=== PATIENT | female | born 1980 | race Caucasian/White ===

== ENCOUNTER → 2018-07-21 15:24 | Outpatient (CLI) | payer MEDICAID, SELFPAY ==
[2018-07-21 15:47] LABS: Basophils % 0.4 % (0.1-2.0); Eosinophils # 0.2 K/mm3 (0.0-0.4); Eosinophils % 3.2 % (0.1-12.0); Hematocrit 44.2 % (37.0-47.0); Hemoglobin 14.4 g/dL (12.2-16.2); Lymphocytes # 2.4 K/mm3 (0.7-4.5); Lymphocytes % 31.8 K/mm3 (10-50); Mean Corpuscular HGB Conc 32.6 g/dL (31.8-35.4); Mean Corpuscular Hemoglobin 29.8 pg (27.0-31.2); Mean Corpuscular Volume 91.6 fl (81-99); Mean Platelet Volume 7.1 fl (7.4-10.4); Monocytes # 0.4 K/mm3 (0.1-1.0); Monocytes % 5.3 % (1.7-9.3); Neutrophils # 4.5 K/mm3 (1.8-7.8); Neutrophils % 59.3 % (37.0-80.0); Platelet Count 258 K/mm3 (142-424); Red Blood Count 4.83 M/mm3 (4.20-5.40); Red Cell Distribution Width 13.7 % (11.5-17.5); White Blood Count 7.6 K/mm3 (4.8-10.8)
== END ==
PROVIDERS: PCP Nurse Practitioner Family; Visit Provider Obstetrics & Gynecology
DX: N93.8 Other specified abnormal uterine and vaginal bleeding (principal); Z01.419 Encounter for gynecological examination (general) (routine) without abnormal findings
CPT/HCPCS: 36415; 84443; 85025; 86316

== ENCOUNTER 2021-01-12 16:16 | Emergency (ER) | payer MEDICAID, SELFPAY ==
[2021-01-12 16:33] VITALS: BP 130/81; PULSE 70; RESP 18; TEMP 36.4; O2SAT 96; BMI 42.1
[2021-01-12 17:10] VITALS: BP 130/81; PULSE 70; RESP 18; TEMP 36.4; O2SAT 96; BMI 42.0
--- NOTE | 2021-01-12 18:27 | HMH.EDUTC ---
[facility] [place] Clinical Impression: Muscle spasm Disposition: Home, Self-Care Condition on Discharge: Good Instructions: Acetaminophen (Alternative Therapy), Methocarbamol, DI for Muscle Spasm Additional Instructions: take Tylenol every 4 hours as needed if you need something pain *moist heat every 20 minutes 3-4 times a day to affected area *Muscle relaxer every 12 hours as needed for muscle spasms but remember, it WILL cause drowsiness You cannot take it and drive, operate machinery or care for small children. *Keep this area active, no movement leads to more stiffness, However take it easy and avoid heavy lifting pushing or pulling *Follow up with you family doctor if no improvement for further treatment Warm bath soaks with epson salt may help with muscle spasm like pain Follow up with your Family Doctor if no improvement or any worsening of sympotms Return if needed Straight to ER if any life threatening symptoms Prescriptions: methocarbamoL [Methocarbamol 500mg Tablet] 500 mg PO BID PRN #20 tab PRN Reason: Muscle Spasm Transmission Status: Received by [id number] Referrals: Marichuy Taylor APRN [Primary Care Provider] - As needed Forms: Work/School Release Time of Disposition: 18:37 Medical Decision Making - Davidson Inquiry Pt receiving controlled substance: No Davidson was queried for this patient: No Vital Signs: 01/12/21 16:33 01/12/21 17:10 01/12/21 18:39 Temperature 97.6 F 97.6 F 97.6 F Temperature Source Oral Oral Pulse Rate 70 Pulse Rate [Left Radial] 70 70 Respiratory Rate 18 18 18 Blood Pressure 130/81 Blood Pressure [Left Arm] 130/81 130/81 Blood Pressure Mean [Left Arm] 97 97 Blood Pressure Source [Left Arm] Automatic Cuff Automatic Cuff Blood Pressure Position [Left Arm] Sitting Sitting 02 Sat by Pulse Oximetry 96 96 Oxygen Delivery Method Room Air Room Air Orders (Tests/Meds): ED MEDICATIONS Discontinued Medications Generic Name Dose Route Start Last Admin Trade Name Freq PRN Reason Stop Dose Admin Methocarbamol 500 mg 01/12/21 18:38 01/12/21 18:41 Methocarbamol 500mg Tablet PO 01/12/21 18:39 500 mg ONCE ONE Administration Medical Decision Narrative: Patient declined c-spine xray [facility] [place] - General Stated complaint: neck pain numb fingers Time Seen by Provider: 01/12/21 18:27 Mode of Arrival: Ambulatory Source of Information: Patient Limitations: No Limitations Description of Symptoms (Recalled from Triage Doc. by RN): Pt c/o L sided neck pain radiating in L posterior shoulder area x1 week. Pt denies injury. HEENT Symptoms (Recalled from RN notes): No Resp Symptoms (Recalled from RN notes): No Skin Symptoms (Recalled from RN notes): No MS Symptoms (Recalled from RN notes): No Functional Status (Recalled from RN notes): WNL - History of Present Illness Provider Complaint: Patient states that she is having spasm like pain on the left side of her neck and it radiates down into her left shoulder area State that earlier she felt numb tingling like pain her fingers States that she is not sure if she may have slept wrong on it or not States that it has been bothering her for about a week and not got any better and feels tight when she tries to turn her head Denies known injury - Related Data Home Medications Medication Instructions Recorded Confirmed buprenorphine 8 mg-naloxone 2 mg 1 tab SUBLINGUAL DAILY tab 07/21/18 03/16/19 sublingual tablet loratadine-pseudoephedrine ER 10 1 tab PO DAILY 07/21/18 03/16/19 mg-240 mg tablet,extended [id number] Previous Rx's Medication Instructions Recorded Amoxicillin/Potassium Clav 1 tab PO Q12H #14 tab 03/16/19 [Augmentin 875-125 Tablet] Benzonatate [Tessalon Perle 100mg 100 mg PO BID PRN #10 cap 03/16/19 Cap] Fluticasone Propionate [Flonase 2 spr NS DAILY #1 bottle 03/16/19 50mcg nasal spray 16gm] Fluconazole [Diflucan 150mg tab] 150 mg PO DIRECTED #2
[2021-01-12 18:39] VITALS: BP 130/81; PULSE 70; RESP 18; TEMP 36.4; O2SAT 96
== END 2021-01-12 18:42 | disposition home or self-care (01) ==
LOC: ER 16:33 → UTC 16:33
PROVIDERS: Emergency Provider Nurse Practitioner; PCP Nurse Practitioner Family
DX: M62.838 Other muscle spasm (principal); M54.2 Cervicalgia; J44.9 Chronic obstructive pulmonary disease, unspecified; F17.210 Nicotine dependence, cigarettes, uncomplicated
CPT/HCPCS: 99202; G0463

== ENCOUNTER 2021-06-15 18:47 | Emergency (ER) | payer MEDICAID, SELFPAY ==
[2021-06-15 19:30] VITALS: BP 137/90; PULSE 98; RESP 18; TEMP 36.8; O2SAT 100; BMI 36.2
--- NOTE | 2021-06-15 19:51 | HMH.EDUTC ---
[facility] – [place] Clinical Impression: Upper respiratory infection, viral Disposition: Home, Self-Care Condition on Discharge: Good Instructions: DI for Viral Upper Respiratory Infection -- Adult Additional Instructions: covid swab was sent to lab, call later today for results. self isolate until test results are known to be negative No sign of a bacterial infection. Likely viral. Viruses can take 7-14 days to run their course. Nasal saline and bulb syringe or nose Jasmyne to remove nasal drainage to help with nasal congestion. Hard to eat, drink, sleep with nasal congestion so important to keep this cleaned out. Monitor temp. Tylenol or Motrin as needed for pain or fever Encourage fluids, water, Gatorade, Powerade, Pedialyte if /toddler/child Warm salt water gargles Warm fluids Sore throat lozenges Sleep elevated Humidifier/vaporizer Follow-up immediately for new or worsening symptoms or no noticeable improvement over the next 48-72 hours. Prescriptions: ondansetron HCL [Zofran 4mg Tab*] 4 mg PO TIDP PRN 3 Days #9 tab PRN Reason: Nausea Transmission Status: [facility] Referrals: Marichuy Taylor APRN [Primary Care Provider] - Time of Disposition: 20:01 Medical Decision Making - Davidson Inquiry Pt receiving controlled substance: No Vital Signs: 06/15/21 19:30 Temperature 98.3 F Temperature Source Oral Pulse Rate [Right Brachial] 98 H Respiratory Rate 18 Blood Pressure [Right Arm] 137/90 Blood Pressure Mean [Right Arm] 105 Blood Pressure Source [Right Arm] Automatic Cuff Blood Pressure Position [Right Arm] Sitting 02 Sat by Pulse Oximetry 100 Oxygen Delivery Method Room Air Orders (Tests/Meds): ORDERS Category Date Time Status Covid-19 Nasal PCR ([facility]) Routine Lab 06/15/21 19:38 Received [facility] [place] HPI - General Chief complaint: [facility] Stated complaint: vomiting,CALLES Time Seen by Provider: 06/15/21 19:51 Mode of Arrival: Ambulatory Source of Information: Patient Limitations: No Limitations Description of Symptoms (Recalled from Triage Doc. by RN): PATIENT C/O HEADACHE AND VOMITING X 3 DAYS HEENT Symptoms (Recalled from RN notes): No Resp Symptoms (Recalled from RN notes): No Skin Symptoms (Recalled from RN notes): No MS Symptoms (Recalled from RN notes): No Functional Status (Recalled from RN notes): WNL - History of Present Illness Provider Complaint: 41 yr old female presents for headache, body aches,nausea and vomiting for 3 days - Related Data Home Medications Medication Instructions Recorded Confirmed buprenorphine 8 mg-naloxone 2 mg 1 tab SUBLINGUAL DAILY tab 07/21/18 03/16/19 sublingual tablet loratadine-pseudoephedrine ER 10 1 tab PO DAILY 07/21/18 03/16/19 mg-240 mg tablet,extended [id number] Previous Rx's Medication Instructions Recorded Amoxicillin/Potassium Clav 1 tab PO Q12H #14 tab 03/16/19 [Augmentin 875-125 Tablet] Benzonatate [Tessalon Perle 100mg 100 mg PO BID PRN #10 cap 03/16/19 Cap] Fluticasone Propionate [Flonase 2 spr NS DAILY #1 bottle 03/16/19 50mcg nasal spray 16gm] Fluconazole [Diflucan 150mg tab] 150 mg PO DIRECTED #2 tab 03/21/19 methocarbamoL [Methocarbamol 500mg 500 mg PO BID PRN #20 tab 01/12/21 Tablet] ondansetron HCL [Zofran 4mg Tab*] 4 mg PO TIDP PRN 3 Days #9 tab 06/15/21 Allergies Allergy/AdvReac Type Severity Reaction Status Date / Time ibuprofen Allergy Verified 03/21/19 10:19 prednisone Allergy Verified 03/21/19 10:19 - Worker's Comp Is this a Worker's Comp case?: No H History - Hepatitis A Screen Drug use history?: No High risk sexual behaviors?: No History of sexually transmitted infection?: No Currently employed?: No Childcare worker?: No Do you have indoor plumbing?: Yes Do you have electricity?: Yes Attestation statement:: This patient has been screened for Hepatitis A risk factors. I have reviewed the patient's past medical history
[2021-06-15 20:15] VITALS: BP 137/90; PULSE 98; RESP 18; TEMP 36.8; O2SAT 100
[2021-06-15 22:15] LABS: UTC Strep Screen (Rapid) Negative (Negative)
== END 2021-06-15 20:20 | disposition home or self-care (01) ==
PROVIDERS: Emergency Provider Nurse Practitioner Family; PCP Nurse Practitioner Family
DX: J06.9 Acute upper respiratory infection, unspecified (principal); Z20.822 Contact with and (suspected) exposure to COVID-19; J44.9 Chronic obstructive pulmonary disease, unspecified
CPT/HCPCS: 87880; 99203; G0463; U0003

== ENCOUNTER → 2021-10-23 12:16 | Outpatient (CLI) | payer MEDICAID, SELFPAY ==
--- NOTE | 2021-10-23 12:18 | CA_ITS ---
APPROVED REPORT EXAM: Comprehensive 2D, Doppler, and color-flow Echocardiogram Water Supply Engineer: Laurel Fisher RVT Ht: 5 ft 2 in Wt: 251lbs BSA: 2.11 BP: 125/83 mmHg Indications: CP,SOA,ABN EKG,EDEMA,OBESITY,SMOKER 2D Dimensions LVOT 2.01 cm (M/F) 1.5-2.5 LA Volume 28.70 mL LA Volume Index 13.66 mL/m2 (M/F) 16-34 M-Mode Dimensions RVDd 2.49 cm (0.9-2.6) LA Diam 3.91 cm (1.9-4.0) LVDd 5.83 cm (3.5-5.7) Ao Diam 2.78 cm (2.0-3.7) LVDs 3.82 cm (3.5-5.7) IVSd 0.80 cm (0.6-1.1) PWd 0.68 cm (0.6-1.1) EF (Teich) 62.80% FS 34.50% EDV (Teich) 168.50 mL TAPSE 2.73 (<1.7) ESV (Teich) 62.70 mL LV Diastology E Decel Time 187.00 (160-240 msec) E/A Ratio 0.9 MED E' 7.80 (< 7 cm/sec) E'/MED E' Ratio 15.88 (>14) LAT E' 14.50 (<10 cm/sec) E/LAT E' Ratio 8.54 (>14) Aortic Valve AO Peak GR. 10.90 mmHg Mitral Valve MV E Max Erik. 124.00 (40-130 cm/s) MV A Velocity 136.00 (40-130 cm/s) E/A Ratio 0.91 MV Decel. Time 187.00 (160-240 ms) MV PHT 55.00 ms Pulmonary Valve PV Peak Velocity 103.00 (50-150 cm/s) Tricuspid Valve TR P. Velocity 251.00 cm/s RAP Estimate 10.00 mmHg RVSP 35.20 mmHg Left Ventricle Left atrium is normal size, left ventricle is normal size, there is no concentric left ventricular hypertrophy, visually estimated ejection fraction 55% with no regional wall motion abnormality, diastolic parameters are within normal range. Right Ventricle Right atrium and right ventricle are normal size and contractility. Aortic Valve Aortic valve is grossly normal, there is no aortic stenosis or aortic insufficiency. Mitral Valve Mitral valve grossly normal, there is trace mitral regurgitation. Tricuspid Valve Tricuspid valve grossly normal, there is trace tricuspid regurgitation, tricuspid regurgitation jet velocity is inadequate for calculation of the right ventricular systolic pressure. Pulmonic Valve Pulmonic valve is poorly visualized. Great Vessels Aortic root is normal size. Inferior vena cava normal size with normal inspiratory collapse. Pericardium No significant pericardial effusion noted. Conclusion 1. Normal left ventricular size, preserved left ventricular systolic function, visually estimated ejection fraction 55% with no regional wall motion abnormality, diastolic parameters are within normal range. 2. Trace mitral and tricuspid regurgitation. 3. No significant pericardial effusion noted. 4. Inferior vena cava is normal size with normal inspiratory collapse. Electronically signed by : Cuco Bourgeois MD 10/31/2021 09:53:47
== END ==
PROVIDERS: PCP Nurse Practitioner Family; Visit Provider Urology
DX: R06.00 Dyspnea, unspecified (principal); R42 Dizziness and giddiness; R60.9 Edema, unspecified; R94.31 Abnormal electrocardiogram [ECG] [EKG]
CPT/HCPCS: 93306

== ENCOUNTER 2021-11-11 16:56 | Emergency (ER) | payer MEDICAID, SELFPAY ==
[2021-11-11 17:40] VITALS: BP 145/96; PULSE 92; RESP 18; TEMP 37; O2SAT 93; BMI 42.0
[2021-11-11 18:03] LABS: UTC Influenza A Antigen Negative (Negative); UTC Influenza B Antigen Negative (Negative)
[2021-11-11 18:04] LABS: UTC Strep Screen (Rapid) Negative (Negative)
--- NOTE | 2021-11-11 18:07 | HMH.EDUTC ---
[facility] [place] Clinical Impression: Bronchitis Sinusitis Qualifiers: Sinusitis location: unspecified location Chronicity: unspecified Qualified Code(s): J32.9 - Chronic sinusitis, unspecified Disposition: Home, Self-Care Condition on Discharge: Good Instructions: Sinusitis, DI for Sinusitis, DI for Acute Bronchitis Additional Instructions: ? Start antibiotic today. Be sure to complete entire prescription even if feeling better ? Monitor temp. Tylenol every 4 hours as needed and / or ibuprofen every 6 hours as needed ( As long as your primary care physician has told you that it ok to take both. For fever/aches/pains ER if no less than 101 despite Tylenol or Motrin ? Humidifier/vaporizer or hot steamy shower ? Inhaler every 4-6 hours as needed like we discussed. If unsure how to use it, ask pharmacist to demonstrate how. Should help open airways and improve cough, wheezing, and shortness of breath *Promethazine DM cough syrup will cause drowsiness. Use only at night. No driving, operating machinery or caring for small children after taking it *Tessalon Perles will not cause drowsiness but use at bedtime to help stop cough so that you may get some rest. *Start steroid today. Helps with inflammation therefore, cough and wheezing. Follow directions on the package. Reviewed side effects. Patient reports taking them before. Follow up IMMEDIATELY for new or worsening of symptoms OR no noticeable improvement over the next 48-72 hours. 911 immediately for any life threatening symptoms such as chest pain or difficulty breathing You were tested for today for COVID19 your test result should be back in the next 24-48 hours, you may check your COVID test result on the [facility] My Health Portal if you have trouble logging on you may call support for assistance You was given a handout with instructions for Self Quarantine and Self isolation for while you wait on test results and what to do if they are positive If you are positive the Health Dept will be contacting you also Make sure to take your Vitamins Vit. C Vit D and Zinc if you can take them Prescriptions: Benzonatate [Benzonatate 100mg cap] 100 mg PO Q8HP PRN #15 cap PRN Reason: Cough Transmission Status: [facility] Amoxicillin/Potassium Clav [Augmentin 065125 Tablet] 1 tab PO Q12H 10 Days #20 tab Transmission Status: [facility] Referrals: Johanna Castaneda [Primary Care Provider] - As needed Forms: Work/School Release Medical Decision Making - Davidson Inquiry Pt receiving controlled substance: No Davidson was queried for this patient: No Vital Signs: 11/11/21 17:40 11/11/21 18:43 Temperature 98.6 F 98.6 F Temperature Source Oral Pulse Rate 92 H Pulse Rate [Right Brachial] 92 H Respiratory Rate 18 18 Blood Pressure 145/96 H Blood Pressure [Right Arm] 145/96 H Blood Pressure Mean [Right Arm] 112 Blood Pressure Source [Right Arm] Automatic Cuff Blood Pressure Position [Right Arm] Sitting 02 Sat by Pulse Oximetry 93 L Oxygen Delivery Method Room Air - Lab Data Lab results reviewed: Yes: I reviewed the patient's lab results. Lab Results 11/11/21 17:27: Strep Scn Rapid Clinic Negative 11/11/21 17:28: Influenza Type A Ag Negative, Influenza Type B Ag Negative Orders (Tests/Meds): ED MEDICATIONS Discontinued Medications Generic Name Dose Route Start Last Admin Trade Name Bridgerq PRN Reason Stop Dose Admin Albuterol/Ipratropium 3 ml 11/11/21 18:10 11/11/21 18:22 Ipratropium/Albuterol 3 Ml Neb IH 11/11/21 18:11 3 ml ONCE ONE Administration Amoxicillin/Clavulanate Potassium 1 each 11/11/21 18:45 11/11/21 18:51 Amoxicillin/Pot Clavulan 500mg Tablet PO 11/11/21 18:46 1 each ONCE ONE Administration ORDERS Category Date Time Status Covid-19 Nasal PCR ([facility]) Routine Lab 11/11/21 17:23 Received Strep Screen Confirmation Routine Micro 11/11/21 17:27 [place] [facility] [place] - General Stated
[2021-11-11 18:43] VITALS: BP 145/96; PULSE 92; RESP 18; TEMP 37; O2SAT 93
== END 2021-11-11 18:54 | disposition home or self-care (01) ==
PROVIDERS: Emergency Provider Nurse Practitioner; PCP Nurse Practitioner Family
DX: U07.1 COVID-19 (principal); J32.9 Chronic sinusitis, unspecified; J20.9 Acute bronchitis, unspecified; F17.210 Nicotine dependence, cigarettes, uncomplicated
CPT/HCPCS: 87804; 87880; 99203; C9803; G0463; U0003; U0005

== ENCOUNTER 2022-02-11 14:43 | Emergency (ER) | payer MEDICAID, SELFPAY ==
[2022-02-11 14:53] VITALS: BP 123/90; PULSE 87; RESP 18; TEMP 36.7; O2SAT 98; BMI 37.8
--- NOTE | 2022-02-11 15:24 | HMH.EDUTC ---
[facility] [place] Clinical Impression: Sinusitis Qualifiers: Sinusitis location: unspecified location Chronicity: unspecified Qualified Code(s): J32.9 - Chronic sinusitis, unspecified Otitis externa Qualifiers: Otitis externa type: unspecified type Chronicity: unspecified Laterality: right Qualified Code(s): H60.91 - Unspecified otitis externa, right ear Disposition: Home, Self-Care Condition on Discharge: Good Instructions: Sinusitis, DI for Sinusitis, DI for Otitis Externa Additional Instructions: Take oral medication as prescribed Use ear drops as prescribed FOllow up with your Family Doctor if no improvement or any worsening of symptoms Return if needed Straight to ER if any life threatening symptoms Prescriptions: Amoxicillin/Potassium Clav [Amox-Clav 875-125 mg Tablet] 1 tab PO BID #20 tab Transmission Status: [facility] Ofloxacin [Floxin 0.3% OTIC Solution 5mL] 5 drops EAR-RIGHT BID 7 Days #5 ml Transmission Status: [facility] Referrals: Provider,Referral, MD [Primary Care Provider] - As needed Time of Disposition: 15:33 Medical Decision Making - Davidson Inquiry Pt receiving controlled substance: No Davidson was queried for this patient: No Vital Signs: 02/11/22 14:53 Temperature 98.0 F Temperature Source Oral Pulse Rate [Left Radial] 87 Respiratory Rate 18 Blood Pressure [Left Arm] 123/90 Blood Pressure Mean [Left Arm] 101 Blood Pressure Source [Left Arm] Automatic Cuff Blood Pressure Position [Left Arm] Sitting 02 Sat by Pulse Oximetry 98 Oxygen Delivery Method Room Air [facility] [place] HPI - General Stated complaint: rt ear pain Time Seen by Provider: 02/11/22 15:24 Mode of Arrival: Ambulatory Source of Information: Patient Limitations: No Limitations Description of Symptoms (Recalled from Triage Doc. by RN): C/O rt earache x3 days HEENT Symptoms (Recalled from RN notes): Yes (Rt earache) Resp Symptoms (Recalled from RN notes): No Skin Symptoms (Recalled from RN notes): No MS Symptoms (Recalled from RN notes): No Functional Status (Recalled from RN notes): n/a - History of Present Illness Provider Complaint: Patient states that she has been having pain and swelling in her right ear for several days that has continued to get worse States that today she feels like it is about swollen closed so she came in to get it checked out - Related Data Home Medications Medication Instructions Recorded Confirmed buprenorphine 8 mg-naloxone 2 mg 1 tab SUBLINGUAL DAILY tab 07/21/18 11/11/21 sublingual tablet clonidine HCl 0.1 mg tablet 0.1 mg PO DAILY tab 09/29/21 11/11/21 clonazePAM [Clonazepam] 1 mg PO DAILY 11/11/21 11/11/21 Previous Rx's Medication Instructions Recorded Amoxicillin/Potassium Clav 1 tab PO Q12H 10 Days #20 tab 11/11/21 [Augmentin 875-125 Tablet] Benzonatate [Benzonatate 100mg 100 mg PO Q8HP PRN #15 cap 11/11/21 cap] Amoxicillin/Potassium Clav 1 tab PO BID #20 tab 02/11/22 [Amox-Clav 875-125 mg Tablet] Ofloxacin [Floxin 0.3% OTIC 5 drops EAR-RIGHT BID 7 Days #5 ml 02/11/22 Solution 5mL] Allergies Allergy/AdvReac Type Severity Reaction Status Date / Time ibuprofen Allergy Verified 09/29/21 14:38 prednisone Allergy Verified 09/29/21 14:38 - Worker's Comp Is this a Worker's Comp case?: No [facility] History - Hepatitis A Screen Drug use history?: No High risk sexual behaviors?: No History of sexually transmitted infection?: No Currently employed?: No Childcare worker?: No Do you have indoor plumbing?: Yes Do you have electricity?: Yes Attestation statement:: This patient has been screened for Hepatitis A risk factors. I have reviewed the patient's past medical history: Yes Medical History: Reports:: Chronic Obstructive Pulmonary Disease (COPD) Comment: COPD Other Surgeries: Yes: Hysterectomy-Partial Amputation: No Fractures: No Comment: EYE SURGERIES--1999 TO PRESENT. P* C/S--2002. R C/S---
[2022-02-11 15:40] VITALS: BP 123/90; PULSE 87; RESP 18; TEMP 36.7; O2SAT 98
== END 2022-02-11 15:45 | disposition home or self-care (01) ==
PROVIDERS: Emergency Provider Nurse Practitioner
DX: H60.91 Unspecified otitis externa, right ear (principal); J32.9 Chronic sinusitis, unspecified; J44.9 Chronic obstructive pulmonary disease, unspecified; F17.210 Nicotine dependence, cigarettes, uncomplicated
CPT/HCPCS: 99212; G0463

== ENCOUNTER 2022-10-27 12:34 | Emergency (ER) | payer MEDICAID, SELFPAY ==
[2022-10-27 12:45] VITALS: BP 155/92; PULSE 98; RESP 19; TEMP 36.6; O2SAT 96; BMI 44.6
--- NOTE | 2022-10-27 13:03 | EXP.UTC ---
Discharge Plan Disposition Patient Disposition: Home, Self-Care Condition: Good Prescriptions Prescriptions: New cefdinir 300 mg capsule 300 mg PO BID Qty: 20 0RF guaifenesin [Mucinex] 600 mg tablet extended release 12hr 600 mg PO BID PRN (Reason: cough) Qty: 20 0RF No Action buprenorphine-naloxone 8-2 mg tablet, sublingual 1 tab SUBLINGUAL DAILY clonidine HCl 0.1 mg tablet 0.1 mg PO DAILY albuterol sulfate 90 mcg/actuation HFA aerosol inhaler 2 puff inhalation QID PRN (Reason: bronchospasm) Qty: 8.5 12RF Trelegy Ellipta 200-62.5-25 mcg blister with device 1 inh inhalation DAILY Qty: 60 10RF clonazepam 1 MG tablet 1 mg PO DAILY torsemide 20 mg tablet 20 mg PO DAILY dextroamphetamine-amphetamine [Adderall XR] 30 mg capsule,extended release 24hr 30 mg PO DAILY potassium chloride 10 mEq tablet extended release 10 meq PO DAILY Referrals Follow up/Referrals: Provider,Referral, MD [Primary Care Provider] - See instructions Activity Restrictions/Add. Instructions Additional Instructions/Restrictions: Start antibiotic today. Be sure to complete entire prescription even if feeling better Monitor temp. Tylenol every 4 hours as needed and / or ibuprofen every 6 hours as needed ( As long as your primary care physician has told you that it ok to take both. For fever/aches/pains ER if no less than 101 despite Tylenol or Motrin Humidifier/vaporizer or hot steamy shower Inhaler every 4-6 hours as needed like we discussed. If unsure how to use it, ask pharmacist to demonstrate how. Should help open airways and improve cough, wheezing, and shortness of breath Mucinex for your cough and cough suppressant only at night. Be sure to drink lots of water. Follow up IMMEDIATELY for new or worsening of symptoms OR no noticeable improvement over the next 48-72 hours. 911 immediately for any life threatening symptoms such as chest pain or difficulty breathing Clinical Impressions Clinical Impression: Bronchitis Sinusitis Qualifiers: Sinusitis location: unspecified location Chronicity: unspecified Qualified Code(s): J32.9 - Chronic sinusitis, unspecified Instructions Patient Instructions: Sinusitis, DI for Sinusitis Discharge ED Provider: Day Ballard [facility] [place] HPI General Stated complaint: Chest congestion, cough Mode of Arrival: Ambulatory Source of Information: Patient Time Seen by Provider: 10/27/22 13:04 Description of Symptoms (Recalled from Triage Doc. by RN): feels like she cannot take deep breath, congestion, SOB, Cough HEENT Symptoms (Recalled from RN notes): Yes Resp Symptoms (Recalled from RN notes): No Skin Symptoms (Recalled from RN notes): No MS Symptoms (Recalled from RN notes): No Functional Status (Recalled from RN notes): n/a History of Present Illness Provider Complaint: Patient states that she feels like she cannot get a deep breath at times States that for the last 3 days she has been having cough, chest congestion and chills and body aches, State that she has COPD and not sure if she may be having a flare or have bronchitis or something States that her cough has got more deep and hurts when she coughs States that family was worried that she may have COVID but she was worried with bronchitis or Pneumonia so she came in Related Data Home Medications Medication Instructions Recorded Confirmed buprenorphine 8 mg-naloxone 2 mg 1 tab sublingual DAILY detox 07/21/18 10/27/22 sublingual tablet clonidine HCl 0.1 mg tablet 0.1 mg PO DAILY ADHD 09/29/21 10/27/22 clonazepam 1 mg tablet 1 mg PO DAILY ADHD 11/11/21 10/27/22 dextroamphetamine-amphetamine ER 30 mg PO DAILY ADHD 10/27/22 10/27/22 30 mg 24hr capsule,extend release (Adderall XR) potassium chloride 10 mEq 10 meq PO DAILY replacement 10/27/22 10/27/22 tablet,extended release torsemide 20 mg tablet 20 mg PO DAILY Edema 10/27/22
--- NOTE | 2022-10-27 13:04 | XR_ITS ---
FINAL REPORT CLINICAL HISTORY: SOB AND CHEST CONGESTION FINDINGS: Two views of the chest show lungs to be clear. Pulmonary vascularity is normal. Heart and mediastinum are unremarkable. No pleural effusion is present. IMPRESSION: No active disease. Reviewed, Interpreted and Dictated by Farhat Nuñez MD Transcribed by Miranda Childs Authenticated and [facility]
[2022-10-27 14:21] VITALS: BP 155/92; PULSE 98; RESP 19; TEMP 36.6; O2SAT 96
== END 2022-10-27 14:20 | disposition home or self-care (01) ==
PROVIDERS: Emergency Provider Nurse Practitioner
DX: J40 Bronchitis, not specified as acute or chronic (principal); J32.9 Chronic sinusitis, unspecified
CPT/HCPCS: 71046; 99212; 99213; G0463

== ENCOUNTER → 2023-03-02 13:39 | Outpatient (CLI) | payer MEDICAID, SELFPAY ==
[2023-03-02 14:30] LABS: Basophils # 0.1 K/mm3 (0-0.2); Basophils % 0.5 % (0.1-2.0); Eosinophils # 0.4 K/mm3 (0.0-0.4); Eosinophils % 3.8 % (0.1-12.0); Hematocrit 42.1 % (37.0-47.0); Hemoglobin 13.5 g/dL (12.2-16.2); Lymphocytes # 2.6 K/mm3 (0.7-4.5); Lymphocytes % 25.1 % (10-50); Mean Corpuscular Hemoglobin 29.1 pg (27.0-31.2); Mean Platelet Volume 8.3 fl (7.4-10.4); Monocytes # 0.5 K/mm3 (0.1-1.0); Monocytes % 5.1 % (1.7-9.3); Neutrophils # 6.7 K/mm3 (1.8-7.8); Neutrophils % 65.5 % (37.0-80.0); Platelet Count 293 K/mm3 (142-424); Red Blood Count 4.62 M/mm3 (4.20-5.40); White Blood Count 10.2 K/mm3 (4.8-10.8)
[2023-03-09 14:21] LABS: D001-IgE D pteronyssinus <0.10 kU/L (Class 0); D002-IgE D farinae <0.10 kU/L (Class 0); E001-IgE Cat Dander <0.10 kU/L (Class 0); E005-IgE Dog Dander <0.10 kU/L (Class 0); E072-IgE Mouse Urine <0.10 kU/L (Class 0); G002-IgE Bermuda Grass 0.62 kU/L (Class II); G006-IgE Timothy Grass 0.59 kU/L (Class II); I006-IgE Cockroach, German 0.49 kU/L (Class I); Immunoglobulin E, Total 358 IU/mL (6-495); M001-IgE Penicillium chrysogen <0.10 kU/L (Class 0); M002-IgE Cladosporium herbarum <0.10 kU/L (Class 0); M003-IgE Aspergillus fumigatus <0.10 kU/L (Class 0); M006-IgE Alternaria alternata <0.10 kU/L (Class 0); T001-IgE Maple/Box Elder 0.36 kU/L (Class I); T003-IgE Common Silver Birch 0.18 kU/L (Class 0/I); T006-IgE Cedar, Mountain 0.26 kU/L (Class 0/I); T007-IgE Oak, White 0.59 kU/L (Class II); T008-IgE Elm, American 0.43 kU/L (Class I); T010-IgE Walnut 0.38 kU/L (Class I); T015-IgE Ash, White 0.41 kU/L (Class I); T070-IgE White Mulberry 0.21 kU/L (Class 0/I); W001-IgE Ragweed, Short 0.43 kU/L (Class I); W011-IgE Thistle, Russian 0.48 kU/L (Class I); W014-IgE Pigweed, Common 0.36 kU/L (Class I); W018-IgE Sheep Sorrel 0.44 kU/L (Class I)
== END ==
PROVIDERS: PCP Family Medicine; Referring Provider Nurse Practitioner; Visit Provider Internal Medicine Pulmonary Disease
DX: J45.909 Unspecified asthma, uncomplicated (principal)
CPT/HCPCS: 36415; 82785; 85025; 86003

== ENCOUNTER → 2023-06-30 15:27 | Outpatient (CLI) | payer MEDICAID, SELFPAY ==
[2023-06-30 15:31] LABS: Microscopic, Urine URINE MICROSCOPIC (MICROSCOPIC)
[2023-06-30 17:32] LABS: Appearance,Urine CLEAR (Clear); Bilirubin,Urine Negative (Negative); Blood, Urine Negative (Negative); Color,Urine YELLOW (Yellow); Glucose,Urine (UA) Negative (Negative); Ketones,Urine Negative (Negative); Leukocyte Esterase,Urine Negative (Negative); Nitrate,Urine Negative (Negative); Protein,Urine Negative (Negative); Specific Gravity, Urine 1.015 (1.005-1.030); Urobilinogen,Urine 0.2 EU/dl (0.2)
[2023-06-30 17:41] LABS: Basophils % 0.3 % (0.1-2.0); Eosinophils # 0.3 K/mm3 (0.0-0.4); Eosinophils % 4.2 % (0.1-12.0); Hematocrit 45.9 % (37.0-47.0); Hemoglobin 14.5 g/dL (12.2-16.2); Lymphocytes # 2.1 K/mm3 (0.7-4.5); Lymphocytes % 25.3 % (10-50); Mean Corpuscular HGB Conc 31.7 g/dL (31.8-35.4); Mean Corpuscular Volume 91.7 fl (81-99); Mean Platelet Volume 8.6 fl (7.4-10.4); Monocytes # 0.5 K/mm3 (0.1-1.0); Monocytes % 6.2 % (1.7-9.3); Neutrophils # 5.2 K/mm3 (1.8-7.8); Platelet Count 293 K/mm3 (142-424); Red Blood Count 5.01 M/mm3 (4.20-5.40); White Blood Count 8.1 K/mm3 (4.8-10.8)
[2023-06-30 17:44] LABS: Creatinine,Urine Random 9 mg/dL (Not Estab.)
[2023-06-30 17:48] LABS: Squamous Epithelial Cell,Urine Occasional #/hpf (0-5); WBC,Urine Occasional #/hpf (0-3)
[2023-06-30 17:50] LABS: Hemoglobin A1C 5.9 % (4.0-6.0); Microalbumin < 6.000 mg/L (0-16.7)
[2023-06-30 18:07] LABS: Chloride 102 mmol/L (98-107)
[2023-06-30 18:08] LABS: Potassium 4.3 mmoL/L (3.5-5.1); Sodium 141 mmol/L (136-145)
[2023-06-30 18:10] LABS: Alanine Aminotransferase 24 U/L (12-78); Albumin/Globulin Ratio 1.1 (1.1-1.8); Alkaline Phosphatase 109 U/L (38-126); Anion Gap 13.3 mEq/L (5-15); Aspartate Amino Transferase 34 U/L (14-36); Bilirubin,Total 0.5 mg/dl (0.2-1.3); Blood Urea Nitrogen 12 mg/dl (7-17); Carbon Dioxide 30 mmol/L (22.0-30.0); Cholesterol 171 mg/dl (140-200); Estimated Glomerular Filt Rate 91 ml/min (>60); GFR (African American) 110 ML/MIN (>60); Globulin 3.5 g/dL (1.3-3.2); Total Protein,Serum 7.5 g/dl (6.3-8.2); Triglycerides 100 mg/dl (30-150); VLDL Cholesterol 20 mg/dL (0-40)
[2023-06-30 18:11] LABS: Calcium 9.4 mg/dl (8.4-10.2); Chol/HDL Ratio 4.1 (1-3.5); Glucose 87 mg/dl (74-100); HDL Cholesterol 42 mg/dl (40-60); Magnesium 1.8 mg/dl (1.6-2.3); Phosphorous 3.2 mg/dl (2.5-4.5)
[2023-06-30 18:20] LABS: NT Pro Brain Natriuretic Pep. 101 pg/mL (0-125)
[2023-06-30 18:22] LABS: Direct LDL Cholesterol 96.86 mg/dL (100-129)
[2023-06-30 18:27] LABS: 25-OH Vitamin D, Total 14.4 ng/mL (30-100)
[2023-06-30 18:42] LABS: Thyroid Stimulating Hormone 0.67 uIU/mL (0.465-4.68)
[2023-06-30 22:11] LABS: Vitamin B12 404 pg/mL (239-931)
== END ==
PROVIDERS: PCP Nurse Practitioner Family; Visit Provider Nurse Practitioner Family
DX: R06.00 Dyspnea, unspecified (principal); R53.83 Other fatigue; R60.9 Edema, unspecified; I10 Essential (primary) hypertension; N39.0 Urinary tract infection, site not specified; B96.89 Other specified bacterial agents as the cause of diseases classified elsewhere; E55.9 Vitamin D deficiency, unspecified; E11.9 Type 2 diabetes mellitus without complications; Z79.84 Long term (current) use of oral hypoglycemic drugs
CPT/HCPCS: 36415; 80053; 80061; 81001; 82043; 82306; 82570; 82607; 83036; 83735; 83880; 84100; 84155; 84439; 84443; 85025; 87086; 87088; 87186

== ENCOUNTER → 2023-07-20 13:56 | Outpatient (CLI) | payer MEDICAID, SELFPAY | PROVIDERS: PCP Emergency Medicine; Visit Provider Physician Assistant | DX: G47.30 Sleep apnea, unspecified (principal); R53.83 Other fatigue; Z87.898 Personal history of other specified conditions | CPT/HCPCS: G0399 ==

== ENCOUNTER 2024-04-03 23:46 | Emergency (ER) | payer MEDICAID, SELFPAY ==
[2024-04-03 23:48] VITALS: BP 135/82; PULSE 91; RESP 17; TEMP 36.7; O2SAT 97; BMI 53.0
[2024-04-04] VITALS (8 sets, daily range): BP systolic 113–124; BP diastolic 62–81; PULSE 72–98; RESP 16–18; TEMP 36.7; O2SAT 96–98
--- NOTE | 2024-04-04 00:03 | XR_ITS ---
PROCEDURE INFORMATION: Exam: XR Chest Exam date and time: 04/04/2024 12:22 AM Age: 43 years old Clinical indication: Shortness of breath; Additional info: SOA, pnd, orthopnea, wheezing TECHNIQUE: Imaging protocol: Radiologic exam of the chest. Views: 2 views. COMPARISON: CR XR CHEST 2V 10/27/2022 1:05 PM FINDINGS: Lungs: No evidence of acute pulmonary disease or infiltrates Pleural spaces: No large effusion or pneumothorax. Heart/Mediastinum: Stable cardiac and mediastinal contours. Bones/joints: No evidence of acute osseous abnormalities within the visualized portions of the thoracic spine and ribs. Osseous structures appear appropriate for patient age. IMPRESSION: No dense parenchymal consolidation, pleural effusion, or pneumothorax.
--- NOTE | 2024-04-04 00:03 | ED_ITS ---
Discharge Plan Disposition Patient Disposition: Home, Self-Care Chief Complaint: Shortness of Breath/Dyspnea Prescriptions Prescriptions: No Action metformin 500 mg tablet 500 mg PO BID Qty: 180 3RF albuterol sulfate 90 mcg/actuation HFA aerosol inhaler 2 puff inhalation QID PRN (Reason: bronchospasm) Qty: 8.5 12RF ipratropium-albuterol 0.5 mg-3 mg(2.5 mg base)/3 mL solution for nebulization 3 ml inhalation Q6H PRN (Reason: shortness of breath or wheezing) Qty: 90 3RF montelukast 10 mg tablet 10 mg PO DAILY 90 Days Qty: 90 3RF fluticasone propionate [Flonase Allergy Relief] 50 mcg/actuation spray,suspension 2 spray intranasal DAILY 90 Days Qty: 16 3RF Rx Instructions: administer into each nostril bisoprolol fumarate 5 mg tablet 5 mg PO DAILY Qty: 30 2RF furosemide [Lasix] 40 mg tablet 40 mg PO DAILY Qty: 30 2RF buprenorphine-naloxone 8-2 mg tablet, sublingual 1 tab SUBLINGUAL DAILY Trelegy Ellipta 200-62.5-25 mcg blister with device 1 inh inhalation DAILY Qty: 60 10RF triamcinolone acetonide 0.1 % cream 1 applic topical BID Qty: 15 0RF spironolactone [Aldactone] 25 mg tablet 25 mg PO DAILY Qty: 30 1RF clonazepam 1 mg tablet 1 mg PO DAILY PRN (Reason: ADHD) dextroamphetamine-amphetamine [Adderall XR] 30 mg capsule,extended release 24hr 30 mg PO DAILY potassium chloride 10 mEq tablet extended release 10 meq PO DAILY Referrals Follow up/Referrals: Joel Estrada DO [Primary Care Provider] - See instructions Activity Restrictions/Add. Instructions Additional Instructions/Restrictions: Follow-up with Dr. Guzman's team regarding this visit to the emergency department and dyspnea (shortness of breath) with exertion. Heart attack and heart failure numbers were negative, electrolytes were normal, oxygen and CO2 were normal. Chest x-ray today was clear. Decadron every day for the next 5 days. Take this in the morning to prevent insomnia at night. Call your family doctor to establish care for this visit to the emergency department and schedule follow-up within 48 hours to ensure improvement. If you have any worsening of your condition or any other concerning signs or symptoms, return to the emergency department or your primary care doctor for further evaluation. Clinical Impressions Clinical Impression: Acute exacerbation of chronic obstructive pulmonary disease Discharge ED Provider: Brain Pulliam HPI General Chief Complaint: Shortness of Breath/Dyspnea Stated Complaint: rash, swelling both legs, hard time breathing Time Seen by Provider: 04/03/24 23:58 History of Present Illness HPI narrative: Please note that above description of symptoms, in this electronic medical record under categorization of recalled from ER triage doctor by RN are reflective of an initial nursing assessment, however, is not reflective of my full history and physical exam that was personally taken and clarified. Consequentially, this preceding description of symptoms, which may include the patient's categorized chief complaint in the EMR, do not reflect my personal clinical impression, and the ultimate description of history of present illness and patient stated complaints should be deferred to this section of the note. Unless stated otherwise or congruent with this section of the note, additional signs, symptoms, or incongruence should be interpreted as inaccurate with my clinical impression. Related Data Home Medications Medication Instructions Recorded Confirmed buprenorphine 8 mg-naloxone 2 mg 1 tab sublingual DAILY detox 07/21/18 07/08/23 sublingual tablet dextroamphetamine-amphetamine ER 30 mg PO DAILY ADHD 10/27/22 07/08/23 30 mg 24hr capsule,extend release (Adderall XR) potassium chloride 10 mEq 10 meq PO DAILY replacement 10/27/22 07/08/23 tablet,extended release clonazepam 1 mg tablet 1 mg PO DAILY PRN ADHD 12/03/22 07/08/23 Previous Rx's Medication Instructions Recorded fluticasone fur. 200 mcg-umeclid 1 inh inhalation DAILY #60 ea 09/10/22 62.5 mcg-vilant 25 mcg inhalat.powder (Trelegy Ellipta) metformin 500 mg tablet 500 mg PO BID #180 tabs 11/09/22 bisoprolol fumarate 5 mg tablet 5 mg PO DAILY #30 tabs 12/03/22 furosemide 40 mg tablet (Lasix) 40 mg PO DAILY #30 tabs 12/03/22 albuterol sulfate 90 mcg/actuation 2 puff inhalation QID PRN 01/14/23 aerosol inhaler bronchospasm #8.5 grams fluticasone propionate 50 2 spray intranasal DAILY 90 days 01/14/23 mcg/actuation nasal #16 grams spray,suspension (Flonase Allergy Relief) ipratropium 0.5 mg-albuterol 3 mg 3 ml inhalation Q6H PRN shortness 01/14/23 (2.5 mg base)/3 mL nebulization of breath or wheezing #90 mL soln montelukast 10 mg tablet 10 mg PO DAILY 90 days #90 tabs 01/14/23 spironolactone 25 mg tablet 25 mg PO DAILY #30 tabs 02/22/23 (Aldactone) triamcinolone acetonide 0.1 % 1 applic topical BID #15 grams 06/30/23 topical cream Allergies Allergy/AdvReac Type Severity Reaction Status Date / Time ibuprofen Allergy Verified 07/08/23 15:06 prednisone Allergy Verified 07/08/23 15:06 [facility] Disclaimer: The information contained in this section may have been updated after the patient was seen, as this information can be updated by other users. Medical History (Updated 04/04/24 @ 02:54 by Brain Pulliam MD) History of snoring Right otitis media Non compliance with medical treatment Smoking greater than 30 pack years Allergic rhinitis Asthma Dyspnea on exertion Hyperlipidemia Sinusitis Otitis externa Bronchitis Upper respiratory infection, viral Muscle spasm Vaginal yeast infection Sinusitis Surgical History History of eye surgery History of hysterectomy History of tubal ligation History of section Family History Other COPD (chronic obstructive pulmonary disease) Diabetes Hypertension Social History Smoking Status: Current every day smoker tobacco type: cigarettes packs per day: 1 second hand exposure: No alcohol intake: never substance use type: former substance user current occupational status: other Travel in the last 8 weeks: None housing: house current occupational exposures/hazards: No ROS Obtained: Yes All systems reviewed & no additional complaints except as documented Physical Exam General General appearance: alert, in no apparent distress, anxious and obese Neck Neck exam: Present trachea midline Chest Chest inspection: Present normal inspection and symmetric chest wall rise Respiratory Respiratory exam: Present normal lung sounds bilaterally and wheezes (Diffuse bilateral, nontachypneic); Absent respiratory distress, stridor, accessory muscle use or prolonged expiratory phase Cardiovascular Cardiovascular exam: Present regular rate and normal rhythm Abdominal Exam Abdominal exam: Present soft; Absent distention or tenderness Extremities Exam Extremities exam: Present edema (Bilateral 1+ pitting. Chronic overlying skin changes) Neurological Exam Neurological exam: Present alert, oriented X3 and CN II-XII intact Skin Skin exam: Present warm and dry; Absent cyanosis, diaphoresis or pallor HEART Score HEART Score HEART Score assessment performed?: Yes History (anamnesis): Slightly suspicious ECG: Normal Age: <45 years Risk factors: 3 or more risk factors Troponin: </= normal limit HEART Score: 2 Critical Care Critical Care Time Critical Care Time: No Medical Decision Making Medical Records Medical records reviewed: Yes I reviewed the patient's medical records. Davidson Inquiry Pt receiving controlled substance: No Davidson was queried for this patient: No Vital Signs Vital Signs: 04/03/24 23:48 04/04/24 00:00 04/04/24 00:08 Temperature 98.0 F Temperature Source Oral Pulse Rate 82 95 H Pulse Rate [Left Radial] 91 H Respiratory Rate 17 Blood Pressure 123/81 Blood Pressure [Right Arm] 135/82 Blood Pressure Mean Blood Pressure Mean [Right Arm] 99 Blood Pressure Source [Right Arm] Automatic Cuff Blood Pressure Position [Right Arm] Sitting 02 Sat by Pulse Oximetry 97 98 Oxygen Delivery Method Room Air Room Air 04/04/24 00:31 04/04/24 01:00 04/04/24 01:30 Temperature Temperature Source Pulse Rate 98 H 74 Pulse Rate [Left Radial] Respiratory Rate Blood Pressure 124/75 113/62 Blood Pressure [Right Arm] Blood Pressure Mean 87 79 Blood Pressure Mean [Right Arm] Blood Pressure Source [Right Arm] Blood Pressure Position [Right Arm] 02 Sat by Pulse Oximetry 97 Oxygen Delivery Method Room Air 04/04/24 02:00 04/04/24 02:30 Temperature Temperature Source Pulse Rate 72 Pulse Rate [Left Radial] Respiratory Rate 16 Blood Pressure 122/76 118/73 Blood Pressure [Right Arm] Blood Pressure Mean 91 88 Blood Pressure Mean [Right Arm] Blood Pressure Source [Right Arm] Blood Pressure Position [Right Arm] 02 Sat by Pulse Oximetry 96 Oxygen Delivery Method Room Air Lab Data Labs: Lab Results 04/04/24 00:04: VBG pH 7.42 H, VBG pCO2 45.7, VBG pO2 61.3 H, VBG HCO3 28.7, VBG Total CO2 30.1 H, VBG O2 Saturation 92.4 H, VBG Base Excess 4.2 H, VBG Lactic Acid 1.7 04/04/24 00:09: Sodium 138, Potassium 3.7, Chloride 99, Carbon Dioxide 35 H, Anion Gap 7.7, BUN 17, Creatinine 0.70, Estimated Creat Clear 81, Estimated GFR 91, Est GFR ( Amer) 110, Glucose 104 H, Calcium 9.4, Total Bilirubin 0.6, AST 35, ALT 30, Alkaline Phosphatase 96, Troponin I < 0.01, NT-Pro-B Natriuret Pep 121, Total Protein 7.1, Albumin 3.9, Globulin 3.2, Albumin/Globulin Ratio 1.2 04/04/24 00:27: WBC 8.7, RBC 4.31, Hgb 12.7, Hct 39.7, MCV 92.3, MCH 29.5, MCHC 31.9, RDW 13.4, Plt Count 261, MPV 7.7, Neut % (Auto) 59.5, Lymph % (Auto) 28.6, [place] % (Auto) 6.1, Eos % (Auto) 5.1, Baso % (Auto) 0.7, Neut # (Auto) 5.2, Lymph # (Auto) 2.5, [place] # (Auto) 0.5, Eos # (Auto) 0.5 H, Baso # (Auto) 0.1 04/04/24 00:27 04/04/24 00:09 Response Orders (Tests/Meds): ED MEDICATIONS Discontinued Medications Generic Name Dose Route Start Last Admin Trade Name Bridgerq PRN Reason Stop Dose Admin Albuterol/Ipratropium 9 ml 04/04/24 00:03 04/04/24 00:07 Ipratropium/Albuterol 3 Ml Neb IH 04/04/24 00:04 9 ml ONCE ONE Administration Aspirin 324 mg 04/04/24 00:03 04/04/24 00:11 Aspirin 81mg Chewable Tablet PO 04/04/24 00:04 324 mg ONCE ONE Administration Methylprednisolone Sodium Succinate 125 mg 04/04/24 00:03 04/04/24 00:11 Methylprednisolone Sod Succ 125mg Vial IV 04/04/24 00:04 125 mg ONCE ONE Administration ORDERS Category Date Time Status CXR 2 view (NOT portable) [XR chest 2V] Stat Exams 04/04/24 00:03 Completed Complete Blood Count Auto Diff Stat Lab 04/04/24 00:27 Completed Comprehensive Metabolic Panel Stat Lab 04/04/24 00:09 Completed NT Pro Brain Natriuretic Pep. Stat Lab 04/04/24 00:09 Completed Troponin I Q3H Lab 04/04/24 03:15 Ordered Troponin I Q3H Lab 04/04/24 06:15 Ordered Troponin I Stat Lab 04/04/24 00:09 Completed Venous Blood Gas Stat RT 04/04/24 00:04 Completed MDM Narrative Medical Decision Narrative: 43-year-old female history of hypertension, hyperlipidemia, COPD not on home oxygen, but still smoking, CAD presenting with shortness of breath. This has been getting worse over the past 2 or 3 days. Patient states that worse with exertion. Associated with swelling in her bilateral lower extremities as well as redness that is developed over the past few weeks. States that over the last month or 2 she has been unable to lay flat at night she has been sitting up straight sleeping due to a feeling of smothering. States that she has been generally short of breath, wheezing more, increased dry cough that is nonproductive. No sick symptoms. History was obtained via conversation with patient. On arrival, patient hemodynamically stable, alert, oriented x4, appropriate, GCS 15, moving all extremities spontaneously, pupils equal and reactive to light. Full physical exam performed and significant for diffuse bilateral end expiratory wheezing. No focal breath sounds. Cardiac exam within normal limits other than 1+ lower extremity pitting edema. Patient obese, unkempt. Differential includes COPD exacerbation, pneumonia, bronchitis, CHF exacerbation, CAD, ACS, PA, microvascular coronary artery disease, among others. Patient was given 324 mg aspirin, DuoNeb x 3, Solu-Medrol 125 mg for symptomatic management and correction of underlying abnormalities. Workup independently interpreted and significant for nonactionable CBC with normal white count, normal hemoglobin, normal platelets. VBG with mild metabolic alkalosis, pH 7.42, bicarb high at 30, CO2 normal at 45, oxygen normal. Lactate negative. Nonactionable CMP. BNP and troponin both negative. Chest x-ray independently interpreted and without acute cardiopulmonary disease, no evidence of edema or CHF. See radiology read for full review of final results. Independent interpretation of EKG shows sinus rhythm 84 beats a minute without ST or T wave changes concerning for acute ischemia. NV 163, QRS 116, QTc 438. Patient placed on continuous cardiac monitoring and continuous pulse ox with initial blood pressure 135/82, heart rate 91, saturation 97 on room air. Heart score 2. Low risk Wells, PERC negative. Patient was placed in observation beginning at 12:30 AM in order to allow COPD exacerbation medications to begin working, reassess, and determine need for admission versus home-going. The patient was provided Solu-Medrol, DuoNebs, rest while awaiting results. Independent interpretation of results demonstrated and discussed above. On reevaluation, patient sleeping comfortably without complaint. At this time, I feel patient is appropriate for discharge. Total observation time 2 hours. Because patient at baseline without signs or symptoms of clinical decompensation, deemed appropriate for discharge. Results were relayed to patient who voiced understanding and were agreeable to outpatient management and follow up. I discussed my clinical impression with patient and answered all questions. At this time, the evidence for any other entities in the differential is insufficient to warrant any further testing or ED observation. This was explained as well. Advisory was given that persistent or worsening symptoms require further evaluation. I confirmed the understanding of this discussion. At this time I feel is most consistent with mild COPD exacerbation. Because patient not without increased sputum, change in sputum, or other indications for antibiotics, these will be prescribed. Patient to be discharged with Decadron. Product Ambassador disclaimer Much of this encounter note is an electronic highway landscape architect spoken language to printed text. Electronic highway landscape architect of the spoken language may permit errors. Although I have reviewed the note, some errors may still exist.
[2024-04-04] MEDS: IPRATROPIUM/ALBUTEROL 3 ML NEB 9 ML IH (00:07)
--- NOTE | 2024-04-04 00:09 | PC.NURSE ---
RT at bedside
[2024-04-04] MEDS: METHYLPREDNISOLONE SOD SUCC 125MG VIAL 125 MG IV (00:11)
[2024-04-04] MEDS: ASPIRIN 81MG CHEWABLE TABLET 324 MG PO (00:11)
[2024-04-04 00:18] LABS: Lactate Venous 1.7 mmol/L (0.4-2.0); VBG Base Excess 4.2 mmol/L (-2.4-2.3); VBG HCO3 28.7 mmol/L (23-30); VBG Oxygen Saturation 92.4 % (50-70); VBG PCO2 45.7 mmol/L (35-51); VBG PH 7.42 mmol/L (7.31-7.41); VBG PO2 61.3 mmol/L (28-40); VBG Total CO2 30.1 mmol/L (23-27)
[2024-04-04 00:30] LABS: Basophils # 0.1 K/mm3 (0-0.2); Basophils % 0.7 % (0.1-2.0); Eosinophils # 0.5 K/mm3 (0.0-0.4); Eosinophils % 5.1 % (0.1-12.0); Hematocrit 39.7 % (37.0-47.0); Hemoglobin 12.7 g/dL (12.2-16.2); Lymphocytes # 2.5 K/mm3 (0.7-4.5); Lymphocytes % 28.6 % (10-50); Mean Corpuscular HGB Conc 31.9 g/dL (31.8-35.4); Mean Corpuscular Hemoglobin 29.5 pg (27.0-31.2); Mean Corpuscular Volume 92.3 fl (81-99); Mean Platelet Volume 7.7 fl (7.4-10.4); Monocytes # 0.5 K/mm3 (0.1-1.0); Monocytes % 6.1 % (1.7-9.3); Neutrophils # 5.2 K/mm3 (1.8-7.8); Neutrophils % 59.5 % (37.0-80.0); Platelet Count 261 K/mm3 (142-424); Red Blood Count 4.31 M/mm3 (4.20-5.40); Red Cell Distribution Width 13.4 % (11.5-17.5); White Blood Count 8.7 K/mm3 (4.8-10.8)
[2024-04-04 00:40] LABS: Alanine Aminotransferase 30 U/L (12-78); Albumin Level 3.9 g/dl (3.5-5.0); Albumin/Globulin Ratio 1.2 (1.1-1.8); Alkaline Phosphatase 96 U/L (38-126); Anion Gap 7.7 mEq/L (5-15); Aspartate Amino Transferase 35 U/L (14-36); Bilirubin,Total 0.6 mg/dl (0.2-1.3); Blood Urea Nitrogen 17 mg/dl (7-17); Calcium 9.4 mg/dl (8.4-10.2); Carbon Dioxide 35 mmol/L (22.0-30.0); Chloride 99 mmol/L (98-107); Creatinine Clearance Estimated 81 mL/min (50-200); Estimated Glomerular Filt Rate 91 ml/min (>60); GFR (African American) 110 ML/MIN (>60); Globulin 3.2 g/dL (1.3-3.2); Glucose 104 mg/dl (74-100); Potassium 3.7 mmoL/L (3.5-5.1); Sodium 138 mmol/L (136-145); Total Protein,Serum 7.1 g/dl (6.3-8.2)
[2024-04-04 00:52] LABS: NT Pro Brain Natriuretic Pep. 121 pg/mL (0-125)
[2024-04-04 00:53] LABS: Troponin I < 0.01 ng/ml (0.00-0.034)
--- NOTE | 2024-04-04 01:33 | PC.NURSE ---
rounded on pt at this time. Pt asleep in bed. Family at bedside.
--- NOTE | 2024-04-04 23:54 | ECG_ITS ---
APPROVED REPORT Exam: Resting ECG HR:84 bpm ECG Measurements Heart Rate 84 AXES WA 163 P 70 QRSd 116 QRS -14 QT 398 T 61 QTc 438 Conclusion SINUS RHYTHM Electronically signed by : CAROL PALACIO, 04/04/2024 05:30:29
== END 2024-04-04 03:10 | disposition home or self-care (01) ==
PROVIDERS: Emergency Provider Emergency Medicine; PCP Internal Medicine
DX: J44.1 Chronic obstructive pulmonary disease with (acute) exacerbation (principal); R06.02 Shortness of breath; R06.2 Wheezing; F17.210 Nicotine dependence, cigarettes, uncomplicated; R60.0 Localized edema; E78.5 Hyperlipidemia, unspecified; I10 Essential (primary) hypertension
CPT/HCPCS: 71046; 80053; 82803; 83880; 84484; 85025; 93005; 96374; 99284; J2930; J7620

== ENCOUNTER 2024-07-04 18:43 | Emergency (ER) | payer MEDICAID, SELFPAY ==
[2024-07-04 20:17] VITALS: BP 125/89; PULSE 80; RESP 20; TEMP 36.7; O2SAT 98; BMI 46.6
--- NOTE | 2024-07-04 20:28 | EXP.UTC ---
Discharge Plan Disposition Patient Disposition: Still a Patient Chief Complaint: Skin/Abscess/Foreign Body Prescriptions Prescriptions: No Action albuterol sulfate 90 mcg/actuation HFA aerosol inhaler 2 puff inhalation QID PRN (Reason: bronchospasm) Qty: 8.5 12RF bisoprolol fumarate 5 mg tablet 5 mg PO DAILY Qty: 30 2RF furosemide [Lasix] 40 mg tablet 40 mg PO DAILY Qty: 30 2RF buprenorphine-naloxone 8-2 mg tablet, sublingual 1 tab SUBLINGUAL DAILY Trelegy Ellipta 200-62.5-25 mcg blister with device 1 inh inhalation DAILY Qty: 60 10RF spironolactone [Aldactone] 25 mg tablet 25 mg PO DAILY Qty: 30 1RF clonazepam 1 mg tablet 1 mg PO DAILY PRN (Reason: ADHD) dexamethasone 6 mg tablet 6 mg PO DAILY Qty: 5 0RF bumetanide 2 mg tablet 2 mg PO DAILY dextroamphetamine-amphetamine [Adderall XR] 30 mg capsule,extended release 24hr 30 mg PO DAILY Referrals Follow up/Referrals: Joel Estrada DO [Primary Care Provider] - See instructions Print Language Print Language: [place] Discharge ED Provider: Brain Pulliam [facility] [place] H[place] General Stated complaint: Pain in both swollen legs Mode of Arrival: Ambulatory Source of Information: Patient Time Seen by Provider: 07/04/24 20:28 Description of Symptoms (Recalled from Triage Doc. by RN): BLE reddness, painful and bright red, hot to the touch HEENT Symptoms (Recalled from RN notes): No Resp Symptoms (Recalled from RN notes): No Skin Symptoms (Recalled from RN notes): Yes (red legs) MS Symptoms (Recalled from RN notes): No Functional Status (Recalled from RN notes): WDL History of Present Illness Provider Complaint: Patient states for the last 3 days she has been having swelling and redness to both legs States she always has swelling and is on Lasix but for the last 3 days she has been having redness that has got worse and now moving up her legs States it is painful, and hurts when she touches it States she had a fever over the weekend and had one this morning states that someone told her she may have an infection so she came in to get checked Related Data Home Medications ?Medication ?Instructions ?Recorded ?Confirmed buprenorphine 8 mg-naloxone 2 mg 1 tab sublingual DAILY detox 07/21/18 07/08/23 sublingual tablet dextroamphetamine-amphetamine ER 30 mg PO DAILY ADHD 10/27/22 07/08/23 30 mg 24hr capsule,extend release (Adderall XR) clonazepam 1 mg tablet 1 mg PO DAILY PRN ADHD 12/03/22 07/08/23 bumetanide 2 mg tablet 2 mg PO DAILY 07/04/24 07/04/24 Previous Rx's ?Medication ?Instructions ?Recorded fluticasone fur. 200 mcg-umeclid 1 inh inhalation DAILY #60 ea 09/10/22 62.5 mcg-vilant 25 mcg inhalat.powder (Trelegy Ellipta) bisoprolol fumarate 5 mg tablet 5 mg PO DAILY #30 tabs 12/03/22 furosemide 40 mg tablet (Lasix) 40 mg PO DAILY #30 tabs 12/03/22 albuterol sulfate 90 mcg/actuation 2 puff inhalation QID PRN 01/14/23 aerosol inhaler bronchospasm #8.5 grams spironolactone 25 mg tablet 25 mg PO DAILY #30 tabs 02/22/23 (Aldactone) dexamethasone 6 mg tablet 6 mg PO DAILY #5 tabs 04/04/24 Allergies Allergy/AdvReac Type Severity Reaction Status Date / Time ibuprofen Allergy Verified 07/08/23 15:06 prednisone Allergy Verified 07/08/23 15:06 Worker's Comp Is this a Worker's Comp case?: No [facility] Disclaimer: The information contained in this section may have been updated after the patient was seen, as this information can be updated by other users. Medical History (Updated 04/04/24 @ 02:54 by Brain Pulliam MD) History of snoring Right otitis media Non compliance with medical treatment Smoking greater than 30 pack years Allergic rhinitis Asthma Dyspnea on exertion Hyperlipidemia Sinusitis Otitis externa Bronchitis Upper respiratory infection, viral Muscle spasm Vaginal yeast infection Sinusitis Surgical History History of eye surgery History of hysterectomy History of tubal ligation History of section Family History Other COPD (chronic obstructive pulmonary disease) Diabetes Hypertension Social History Smoking Status: Current every day smoker tobacco type: cigarettes packs per day: 1 second hand exposure: No alcohol intake: never substance use type: former substance user current occupational status: other Travel in the last 8 weeks: None housing: house current occupational exposures/hazards: No ROS Obtained: Yes All systems reviewed & no additional complaints except as documented and Yes Systems reviewed as appropriate & no additional complaints except as documented Constitutional Constitutional: Reports system reviewed and no additional complaints, except as documented, Reports as per HPI and Reports fever(s) ENT Ears, Nose, Mouth, and Throat: Reports system reviewed and no additional complaints, except as documented and Reports as per HPI Cardiovascular Cardiovascular: Reports system reviewed and no additional complaints, except as documented and Reports as per HPI Respiratory Respiratory: Reports system reviewed and no additional complaints, except as documented and Reports as per HPI Gastrointestinal Gastrointestingal: Reports system reviewed and no additional complaints, except as documented and as per HPI Musculoskeletal Musculoskeletal: Reports system reviewed and no additional complaints, except as documented and Reports as per HPI Integumentary/Breasts Skin/Breast: Reports system reviewed and no additional complaints, except as documented, Reports as per HPI and Reports other Comments: Redness and swelling to bilateral lower extremities that has got worse over the last 3 days with fever Physical Exam General General appearance: alert and in no apparent distress Respiratory Respiratory exam: Present normal lung sounds bilaterally; Absent respiratory distress or wheezes Cardiovascular Cardiovascular exam: Present regular rate, normal rhythm and normal heart sounds Extremities Exam Extremities exam: Present edema and other (bilateral redness, warmth and swelling that extends up both legs above the knee, tender and warm to the touch) Neurological Exam Neurological exam: Present alert, oriented X3 and normal gait Medical Decision Making Davidson Inquiry Pt receiving controlled substance: No Davidson was queried for this patient: No Vital Signs: 07/04/24 20:17 Temperature 98.1 F Temperature Source Oral Pulse Rate [Left Brachial] 80 Respiratory Rate 20 Blood Pressure [Left Arm] 125/89 Blood Pressure Mean [Left Arm] 101 02 Sat by Pulse Oximetry 98 Medical Decision Narrative: Patient having swelling, redness warmth and tenderness to bilateral lower extremities that is extending up past the knee Discussed with patient and due to extent of swelling and redness will transfer to the ED for more extensive work up and evaluation and she agreed Patient moved to room 6
[2024-07-04 20:29] VITALS: BP 136/90; PULSE 77; RESP 22; TEMP 36.7; O2SAT 100; BMI 46.5
--- NOTE | 2024-07-04 20:32 | PC.NURSE ---
PATIENT SENT TO ER PER Julieta TSAI APRN FOR FURTHER EVALUATION. REPORT GIVEN TO DR. PALACIO BY Julieta TSAI APRN. PATIENT AMBULATED TO ER WITH [facility] STAFF ASSIST AT THIS TIME
[2024-07-04 21:00] VITALS: BP 132/83; PULSE 66; RESP 16; O2SAT 97
[2024-07-04 21:01] LABS: Basophils # 0.1 K/mm3 (0-0.2); Basophils % 1.6 % (0.1-2.0); Eosinophils # 0.2 K/mm3 (0.0-0.4); Eosinophils % 3.3 % (0.1-12.0); Hematocrit 46.7 % (37.0-47.0); Hemoglobin 13.9 g/dL (12.2-16.2); Lymphocytes # 1.7 K/mm3 (0.7-4.5); Lymphocytes % 30.8 % (10-50); Mean Corpuscular HGB Conc 29.8 g/dL (31.8-35.4); Mean Corpuscular Hemoglobin 28.6 pg (27.0-31.2); Mean Corpuscular Volume 95.7 fl (81-99); Mean Platelet Volume 8.9 fl (7.4-10.4); Monocytes # 0.3 K/mm3 (0.1-1.0); Monocytes % 5.7 % (1.7-9.3); Neutrophils # 3.2 K/mm3 (1.8-7.8); Neutrophils % 58.6 % (37.0-80.0); Platelet Count 281 K/mm3 (142-424); Red Blood Count 4.88 M/mm3 (4.20-5.40); Red Cell Distribution Width 13.3 % (11.5-17.5); White Blood Count 5.5 K/mm3 (4.8-10.8)
[2024-07-04 21:03] LABS: Albumin Level 4.1 g/dl (3.5-5.0); Chloride 106 mmol/L (98-107); Potassium 3.7 mmoL/L (3.5-5.1); Sodium 141 mmol/L (136-145)
[2024-07-04 21:06] LABS: Alanine Aminotransferase 44 U/L (12-78); Albumin/Globulin Ratio 1.1 (1.1-1.8); Alkaline Phosphatase 89 U/L (38-126); Anion Gap 6.7 mEq/L (5-15); Aspartate Amino Transferase 38 U/L (14-36); Bilirubin,Total 0.5 mg/dl (0.2-1.3); Blood Urea Nitrogen 11 mg/dl (7-17); Carbon Dioxide 32 mmol/L (22.0-30.0); Creatinine Clearance Estimated 94 mL/min (50-200); Estimated Glomerular Filt Rate 108 ml/min (>60); GFR (African American) 131 ML/MIN (>60); Globulin 3.8 g/dL (1.3-3.2); Glucose 67 mg/dl (74-100); Total Protein,Serum 7.9 g/dl (6.3-8.2)
[2024-07-04 21:30] VITALS: BP 147/85; PULSE 67; RESP 14; O2SAT 97
[2024-07-04] MEDS: DALBAVANCIN HCL 1,500 MG in DEXTROSE 5 % IN WATER 250 ML 500 MG IV (21:33)
--- NOTE | 2024-07-04 21:58 | ED_ITS ---
Discharge Plan Disposition Patient Disposition: Home, Self-Care Prescriptions Prescriptions: No Action albuterol sulfate 90 mcg/actuation HFA aerosol inhaler 2 puff inhalation QID PRN (Reason: bronchospasm) Qty: 8.5 12RF bisoprolol fumarate 5 mg tablet 5 mg PO DAILY Qty: 30 2RF furosemide [Lasix] 40 mg tablet 40 mg PO DAILY Qty: 30 2RF buprenorphine-naloxone 8-2 mg tablet, sublingual 1 tab SUBLINGUAL DAILY Trelegy Ellipta 200-62.5-25 mcg blister with device 1 inh inhalation DAILY Qty: 60 10RF spironolactone [Aldactone] 25 mg tablet 25 mg PO DAILY Qty: 30 1RF clonazepam 1 mg tablet 1 mg PO DAILY PRN (Reason: ADHD) dexamethasone 6 mg tablet 6 mg PO DAILY Qty: 5 0RF bumetanide 2 mg tablet 2 mg PO DAILY dextroamphetamine-amphetamine [Adderall XR] 30 mg capsule,extended release 24hr 30 mg PO DAILY Referrals Follow up/Referrals: Joel Estrada DO [Primary Care Provider] - See instructions Activity Restrictions/Add. Instructions Additional Instructions/Restrictions: Call your family doctor to establish care for this visit to the emergency department and schedule follow-up within 48 hours to ensure improvement. If you have any worsening of your condition or any other concerning signs or symptoms, return to the emergency department or your primary care doctor for further evaluation. If redness gets worse beyond Wednesday, 07/07, or symptoms worsen, return to the apartment for further evaluation. Clinical Impressions Clinical Impression: Cellulitis of both lower extremities Instructions Patient Instructions: DI for Skin Abscess Print Language Print Language: [place] Discharge ED Provider: Brain Pulliam General Adult HPI General Chief complaint: Skin/Abscess/Foreign Body Stated complaint: Pain in both swollen legs Time Seen by Provider: 07/04/24 20:28 Mode of Arrival: Ambulatory Source of Information: Patient Description of Symptoms (Recalled from ER Triage Doc. by RN): BLE reddness, painful and bright red, hot to the touch History of Present Illness HPI narrative: Please note that above description of symptoms, in this electronic medical record under categorization of recalled from ER triage doctor by RN are reflective of an initial nursing assessment, however, is not reflective of my full history and physical exam that was personally taken and clarified. Consequentially, this preceding description of symptoms, which may include the patient's categorized chief complaint in the EMR, do not reflect my personal clinical impression, and the ultimate description of history of present illness and patient stated complaints should be deferred to this section of the note. Unless stated otherwise or congruent with this section of the note, additional signs, symptoms, or incongruence should be interpreted as inaccurate with my clinical impression. Related Data Home Medications ?Medication ?Instructions ?Recorded ?Confirmed buprenorphine 8 mg-naloxone 2 mg 1 tab sublingual DAILY detox 07/21/18 07/08/23 sublingual tablet dextroamphetamine-amphetamine ER 30 mg PO DAILY ADHD 10/27/22 07/08/23 30 mg 24hr capsule,extend release (Adderall XR) clonazepam 1 mg tablet 1 mg PO DAILY PRN ADHD 12/03/22 07/08/23 bumetanide 2 mg tablet 2 mg PO DAILY 07/04/24 07/04/24 Previous Rx's ?Medication ?Instructions ?Recorded fluticasone fur. 200 mcg-umeclid 1 inh inhalation DAILY #60 ea 09/10/22 62.5 mcg-vilant 25 mcg inhalat.powder (Trelegy Ellipta) bisoprolol fumarate 5 mg tablet 5 mg PO DAILY #30 tabs 12/03/22 furosemide 40 mg tablet (Lasix) 40 mg PO DAILY #30 tabs 12/03/22 albuterol sulfate 90 mcg/actuation 2 puff inhalation QID PRN 01/14/23 aerosol inhaler bronchospasm #8.5 grams spironolactone 25 mg tablet 25 mg PO DAILY #30 tabs 02/22/23 (Aldactone) dexamethasone 6 mg tablet 6 mg PO DAILY #5 tabs 04/04/24 Allergies Allergy/AdvReac Type Severity Reaction Status Date / Time ibuprofen Allergy Verified 07/08/23 15:06 prednisone Allergy Verified 07/08/23 15:06 [facility] Disclaimer: The information contained in this section may have been updated after the patient was seen, as this information can be updated by other users. Medical History (Updated 07/04/24 @ 22:11 by Brain Pulliam MD) History of snoring Right otitis media Non compliance with medical treatment Smoking greater than 30 pack years Allergic rhinitis Asthma Dyspnea on exertion Hyperlipidemia Sinusitis Otitis externa Bronchitis Upper respiratory infection, viral Muscle spasm Vaginal yeast infection Sinusitis Surgical History History of eye surgery History of hysterectomy History of tubal ligation History of section Family History Other COPD (chronic obstructive pulmonary disease) Diabetes Hypertension Social History Smoking Status: Current every day smoker tobacco type: cigarettes packs per day: 1 second hand exposure: No alcohol intake: never substance use type: former substance user current occupational status: other Travel in the last 8 weeks: None housing: house current occupational exposures/hazards: No ROS Obtained: Yes All systems reviewed & no additional complaints except as documented Physical Exam General General appearance: alert and in no apparent distress Head Head exam: atraumatic and normocephalic Eye Eye exam: Present normal appearance, PERRL and EOMI Neck Neck exam: Present normal inspection, full ROM and trachea midline Respiratory Respiratory exam: Absent respiratory distress, wheezes, stridor, accessory muscle use or prolonged expiratory phase Cardiovascular Cardiovascular exam: Present other (Pulses equal symmetric in upper and lower extremities) Abdominal Exam Abdominal exam: Present soft; Absent distention, tenderness or pulsatile mass Extremities Exam Extremities exam: Present edema and other (Per MDM) Neurological Exam Neurological exam: Present alert, oriented X3 and CN II-XII intact; Absent motor sensory deficit Skin Skin exam: Present warm and dry; Absent diaphoresis or erythema Medical Decision Making Medical Records Medical records reviewed: Yes I reviewed the patient's medical records. [place] Inquiry Pt receiving controlled substance: No [place] was queried for this patient: No Vital Signs: 07/04/24 20:17 07/04/24 20:29 07/04/24 21:00 Temperature 98.1 F 98.1 F Temperature Source Oral Oral Pulse Rate 66 Pulse Rate [Left Brachial] 80 77 Respiratory Rate 20 22 16 Blood Pressure 132/83 Blood Pressure [Left Arm] 125/89 136/90 Blood Pressure Mean 97 Blood Pressure Mean [Left Arm] 101 105 Blood Pressure Source [Left Arm] Automatic Cuff Blood Pressure Position [Left Arm] Supine 02 Sat by Pulse Oximetry 98 100 97 Oxygen Delivery Method Room Air Room Air 07/04/24 21:30 Temperature Temperature Source Pulse Rate 67 Pulse Rate [Left Brachial] Respiratory Rate 14 Blood Pressure 147/85 H Blood Pressure [Left Arm] Blood Pressure Mean 93 Blood Pressure Mean [Left Arm] Blood Pressure Source [Left Arm] Blood Pressure Position [Left Arm] 02 Sat by Pulse Oximetry 97 Oxygen Delivery Method Room Air Lab Data Lab Results 07/04/24 20:33: WBC 5.5, RBC 4.88, Hgb 13.9, Hct 46.7, MCV 95.7, MCH 28.6, MCHC 29.8 L, RDW 13.3, Plt Count 281, MPV 8.9, Neut % (Auto) 58.6, Lymph % (Auto) 30.8, [place] % (Auto) 5.7, Eos % (Auto) 3.3, Baso % (Auto) 1.6, Neut # (Auto) 3.2, Lymph # (Auto) 1.7, [place] # (Auto) 0.3, Eos # (Auto) 0.2, Baso # (Auto) 0.1, Sodium 141, Potassium 3.7, Chloride 106, Carbon Dioxide 32 H, Anion Gap 6.7, BUN 11, Creatinine 0.60, Estimated Creat Clear 94, Estimated GFR 108, Est GFR ( Amer) 131, Glucose 67 L, Lactate 1.0, Calcium 9.0, Total Bilirubin 0.5, AST 38 H, ALT 44, Alkaline Phosphatase 89, NT-Pro-B Natriuret Pep 83.0, Total Protein 7.9, Albumin 4.1, Globulin 3.8 H, Albumin/Globulin Ratio 1.1 07/04/24 20:33 07/04/24 20:33 Orders (Tests/Meds): ED MEDICATIONS Discontinued Medications Generic Name Dose Route Start Last Admin Trade Name Freq PRN Reason Stop Dose Admin Dalbavancin 1,500 mg/ Dextrose 250 mls @ 500 mls/hr 07/04/24 21:30 07/04/24 21:33 IV 07/04/24 21:31 500 mls/hr ONCE ONE Administration ORDERS Category Date Time Status CBC w/Auto Diff [Complete Blood Count Auto Diff] Stat Lab 07/04/24 20:33 Completed CMP [Comprehensive Metabolic Panel] Stat Lab 07/04/24 20:33 Completed Lactic Acid Stat Lab 07/04/24 20:33 Completed NT Pro Brain Natriuretic Pep. Stat Lab 07/04/24 20:33 Completed Blood Culture Stat Micro 07/04/24 20:33 Ordered Medical Decision Narrative: This is a 44-year-old female history of COPD still smoking not on home oxygen, hypertension, hyperlipidemia, lower extremity edemaOf unknown etiology, likely dependent presenting with lower extremity edema, pain, fevers. States that the fever started today, 07/04. Got above 101 ?F. States that the redness in her legs has been progressively worsening over the past few days as well. States that she has been worked up for lower extremity edema by her primary care physician and think it is gravity related/dependent edema given patient has had largely unremarkable workup. No unilateral swelling relative to the other. States that the pain is moderate in intensity, made worse by bearing weight. States that she has been told that she needs to buy compression stockings. She just purchased some, on their way from director strategic account management. Has been taking her diuretic medication as prescribed. No other concerning or relevant history. History was obtained via conversation with patient. On arrival, patient hemodynamically stable, alert, oriented x4, appropriate, GCS 15, moving all extremities spontaneously, pupils equal and reactive to light. Full physical exam performed and significant for chronically ill, morbidly obese appearing patient who is in no acute distress. Lower extremities are concerning. Bilateral 2+ pitting edema with chronic skin changes, but superimposed erythema, warmth, induration concerning for cellulitis extending from bilateral ankles up proximally to both knees. Sensitive, but patient is neurovascularly intact and able to ambulate. Differential includes acute on chronic dependent edema, CHF exacerbation cellulitis, lymphangitis, venous stasis, among others. Patient placed on continuous cardiac monitoring and continuous pulse ox with initial blood pressure 125/89, heart rate 80, saturation 98% on room air. Workup independently interpreted and significant for no leukocytosis. Lactate negative. Chemistry nonactionable and negative BNP. Unremarkable hematologic workup overall. Patient kidney function normal. Because concern for extensive lower extremity cellulitis, 1.5 g dalbavancin administered. Because patient at baseline without signs or symptoms of clinical decompensation, deemed appropriate for discharge. Results were relayed to patient who voiced understanding and were agreeable to outpatient management and follow up. I discussed my clinical impression with patient and answered all questions. At this time, the evidence for any other entities in the differential is insufficient to warrant any further testing or ED observation. This was explained as well. Advisory was given that persistent or worsening symptoms require further evaluation. I confirmed the understanding of this discussion. Ear Machine Operator disclaimer Much of this encounter note is an electronic worship director spoken language to printed text. Electronic worship director of the spoken language may permit errors. Although I have reviewed the note, some errors may still exist. Critical Care Critical Care Time Critical Care Time: No
[2024-07-04 22:32] VITALS: BP 134/76; PULSE 66; RESP 20; TEMP 36.7; O2SAT 96
== END 2024-07-04 22:20 | disposition home or self-care (01) ==
LOC: UTC 18:46 → ER 20:28
PROVIDERS: Emergency Provider Emergency Medicine; PCP Internal Medicine
DX: L03.115 Cellulitis of right lower limb (principal); L03.116 Cellulitis of left lower limb; M79.604 Pain in right leg; M79.605 Pain in left leg; J44.9 Chronic obstructive pulmonary disease, unspecified; F17.210 Nicotine dependence, cigarettes, uncomplicated
CPT/HCPCS: 80053; 83605; 83880; 85025; 87040; 96374; 99284; J0875; J7060

== ENCOUNTER 2024-07-23 08:16 | Inpatient (IN) | payer MEDICAID, SELFPAY ==
[2024-07-23] VITALS (25 sets, daily range): BP systolic 92–157; BP diastolic 56–94; PULSE 70–95; RESP 10–20; TEMP 36.7–37.4; O2SAT 5–99; BMI 44.9; BMI 44.6
[2024-07-23] MEDS: DEXTROSE 10 % IN WATER 250 ML 999 ML IV (08:11)
--- NOTE | 2024-07-23 08:11 | ECG_ITS ---
APPROVED REPORT Exam: Resting ECG HR:93 bpm ECG Measurements Heart Rate 93 AXES WI 153 P 65 QRSd 118 QRS -39 QT 332 T -32 QTc 383 Conclusion Normal sinus rhythm, left axis deviation, no acute ST elevation, ST depression or t wave inversions concerning for ischemia, enlarged p waves concerning for left atrial enlargement. Electronically signed by : MARIA ANTONIA MARTINEZ, 07/25/2024 07:24:50
--- NOTE | 2024-07-23 08:17 | XR_ITS ---
PROCEDURE INFORMATION: Exam: XR Chest Exam date and time: 07/23/2024 9:18 AM Age: 44 years old Clinical indication: Shortness of breath; Additional info: SOA TECHNIQUE: Imaging protocol: Radiologic exam of the chest. Views: 1 view. COMPARISON: CR XR CHEST PORTABLE 07/23/2024 9:18 AM FINDINGS: Lungs: There is a nodular opacity at the lung bases. Pleural spaces: Unremarkable. No pleural effusion. No pneumothorax. Heart/Mediastinum: Unremarkable. No cardiomegaly. Bones/joints: Unremarkable. IMPRESSION: Nodular basilar airspace disease.
--- NOTE | 2024-07-23 08:17 | CT_ITS ---
PROCEDURE INFORMATION: Exam: CT Head Without Contrast Exam date and time: 07/23/2024 9:05 AM Age: 44 years old Clinical indication: Altered mental status/memory loss; Additional info: Possible stroke TECHNIQUE: Imaging protocol: Computed tomography of the head without contrast. Radiation optimization: All CT scans at this facility use at least one of these dose optimization techniques: automated exposure control; mA and/or kV adjustment per patient size (includes targeted exams where dose is matched to clinical indication); or iterative reconstruction. COMPARISON: No relevant prior studies available. FINDINGS: Brain: Normal. No hemorrhage. Unremarkable white matter. No mass effect. Cerebral ventricles: No ventriculomegaly. Paranasal sinuses: Visualized sinuses are unremarkable. No fluid levels. Mastoid air cells: Visualized mastoid air cells are well aerated. Nasal cavity: Patchy mucosal thickening in opacity is noted within ethmoid air cells and frontal sinuses as well as patchy obstruction of nasal air channels. Bones: There is depressed deformity of the left nasal bone, age indeterminate. Soft tissues: Unremarkable. The study is limited by motion artifact. IMPRESSION: Motion degraded study. No acute intracranial process.
--- NOTE | 2024-07-23 08:17 | CT_ITS ---
PROCEDURE INFORMATION: Exam: CTA Neck With Contrast Exam date and time: 07/23/2024 9:14 AM Age: 44 years old Clinical indication: Other: AMS; Additional info: Possible stroke TECHNIQUE: Imaging protocol: Computed tomographic angiography of the neck with contrast. Exam focused on the cervical segments of the vasculature. 3D rendering (Not supervised by radiologist): MIP and/or 3D reconstructed images were created by the technologist. Radiation optimization: All CT scans at this facility use at least one of these dose optimization techniques: automated exposure control; mA and/or kV adjustment per patient size (includes targeted exams where dose is matched to clinical indication); or iterative reconstruction. Contrast material: ISOVUE 370; Contrast volume: 80 ml; Contrast route: INTRAVENOUS (IV); COMPARISON: CT ANGIO HEAD 07/23/2024 9:14 AM FINDINGS: Right common carotid artery: No stenosis. No dissection or occlusion. Right internal carotid artery: No stenosis of the extracranial segment. No dissection or occlusion. Right external carotid artery: No occlusion or stenosis of the origin. Left common carotid artery: No stenosis. No dissection or occlusion. Left internal carotid artery: No stenosis of the extracranial segment. No dissection or occlusion. Left external carotid artery: No occlusion or stenosis of the origin. Right vertebral artery: No stenosis. No dissection or occlusion. Left vertebral artery: No stenosis. No dissection or occlusion. Soft tissues: Normal. No significant soft tissue swelling. Bones/joints: No acute fracture. Lungs: Nodular interstitial disease is noted in the visualized lower lobes, incompletely imaged. The study is degraded by motion artifact. IMPRESSION: No carotid stenosis. Pneumonia, incompletely imaged here please correlate with dedicated imaging of the thorax. REFERENCES: NASCET CRITERIA. The degree of stenosis in the cervical segment of the internal carotid artery is based on NASCET criteria. Normal is no stenosis. Mild is less than 50% stenosis. Moderate is 50-69% stenosis. Severe is 70% to 99% stenosis. Total occlusion is no detectable patent lumen.
--- NOTE | 2024-07-23 08:17 | CT_ITS ---
PROCEDURE INFORMATION: Exam: CTA Head With Contrast, Arteriography Exam date and time: 07/23/2024 9:14 AM Age: 44 years old Clinical indication: Other: AMS; Additional info: Possible stroke TECHNIQUE: Imaging protocol: Computed tomographic angiography of the head with contrast. Exam focused on the arteries. 3D rendering (Not supervised by radiologist): MIP and/or 3D reconstructed images were created by the technologist. Radiation optimization: All CT scans at this facility use at least one of these dose optimization techniques: automated exposure control; mA and/or kV adjustment per patient size (includes targeted exams where dose is matched to clinical indication); or iterative reconstruction. Contrast material: ISOVUE 370; Contrast volume: 80 ml; Contrast route: INTRAVENOUS (IV); COMPARISON: CT HEAD/BRAIN WO CON 07/23/2024 9:05 AM FINDINGS: ANTERIOR CIRCULATION: Right internal carotid artery: Intracranial segment is patent with no significant stenosis. No aneurysm. Right middle cerebral artery: No occlusion or significant stenosis. No aneurysm. Right anterior cerebral artery: No occlusion or significant stenosis. No aneurysm. Left internal carotid artery: Intracranial segment is patent with no significant stenosis. No aneurysm. Left middle cerebral artery: No occlusion or significant stenosis. No aneurysm. Left anterior cerebral artery: No occlusion or significant stenosis. No aneurysm. POSTERIOR CIRCULATION: Right vertebral artery: No occlusion or significant stenosis. No aneurysm. Left vertebral artery: No occlusion or significant stenosis. No aneurysm. Basilar artery: No occlusion or significant stenosis. No aneurysm. Right posterior cerebral artery: No occlusion or significant stenosis. No aneurysm. Left posterior cerebral artery: No occlusion or significant stenosis. No aneurysm. Brain: No definite mass, mass effect, or midline shift. Cerebral ventricles: No ventriculomegaly. Paranasal sinuses: Mucosal thickening is noted within ethmoid air cells and frontal sinuses. Bones/joints: There is age-indeterminate depressed deformity left nasal bone and a rightward convexity deviation of the nasal septum. Soft tissues: Unremarkable. IMPRESSION: No acute intracranial large vessel occlusion.
--- NOTE | 2024-07-23 08:21 | HMH.EDGENADL ---
Discharge Plan Disposition Patient Disposition: Admitted Chief Complaint: Altered Mental Status Prescriptions Prescriptions: No Action albuterol sulfate 90 mcg/actuation HFA aerosol inhaler 2 puff inhalation QID PRN (Reason: bronchospasm) Qty: 8.5 12RF bisoprolol fumarate 5 mg tablet 5 mg PO DAILY Qty: 30 2RF furosemide [Lasix] 40 mg tablet 40 mg PO DAILY Qty: 30 2RF buprenorphine-naloxone 8-2 mg tablet, sublingual 1 tab SUBLINGUAL DAILY Trelegy Ellipta 200-62.5-25 mcg blister with device 1 inh inhalation DAILY Qty: 60 10RF spironolactone [Aldactone] 25 mg tablet 25 mg PO DAILY Qty: 30 1RF clonazepam 1 mg tablet 1 mg PO DAILY PRN (Reason: ADHD) dexamethasone 6 mg tablet 6 mg PO DAILY Qty: 5 0RF bumetanide 2 mg tablet 2 mg PO DAILY dextroamphetamine-amphetamine [Adderall XR] 30 mg capsule,extended release 24hr 30 mg PO DAILY Clinical Impressions Clinical Impression: Opioid overdose, Acute hypoxic respiratory failure, Pneumonia Instructions Patient Instructions: DI for Altered Mental Status Print Language Print Language: German Discharge ED Provider: Christina Nelson General Adult HPI General Chief complaint: Altered Mental Status Stated complaint: AMS Time Seen by Provider: 07/23/24 08:17 History of Present Illness HPI narrative: Patient is a 44-year-old with past medical history significant for opioid use disorder presents to the emergency department with altered mental status. History obtained per EMS secondary to patient's altered mental status. Patient was recently switched from Suboxone to methadone yesterday. Presumably was sleepier than normal according to family yesterday woke up this morning and patient was unresponsive per family. Patient received 4 mg of intranasal Narcan with family with positive response. Upon EMS arrival patient was altered, breathing agitated. Received another 4 mg of intranasal Narcan with positive response. Denies blood thinner use. EMS believes that last known well was sometime yesterday unable to give an exact time. Patient is coming currently complaining of nausea and headache. Related Data Home Medications ?Medication ?Instructions ?Recorded ?Confirmed buprenorphine 8 mg-naloxone 2 mg 1 tab sublingual DAILY detox 07/21/18 07/08/23 sublingual tablet dextroamphetamine-amphetamine ER 30 mg PO DAILY ADHD 10/27/22 07/08/23 30 mg 24hr capsule,extend release (Adderall XR) clonazepam 1 mg tablet 1 mg PO DAILY PRN ADHD 12/03/22 07/08/23 bumetanide 2 mg tablet 2 mg PO DAILY 07/04/24 07/04/24 Previous Rx's ?Medication ?Instructions ?Recorded fluticasone fur. 200 mcg-umeclid 1 inh inhalation DAILY #60 ea 09/10/22 62.5 mcg-vilant 25 mcg inhalat.powder (Trelegy Ellipta) bisoprolol fumarate 5 mg tablet 5 mg PO DAILY #30 tabs 12/03/22 furosemide 40 mg tablet (Lasix) 40 mg PO DAILY #30 tabs 12/03/22 albuterol sulfate 90 mcg/actuation 2 puff inhalation QID PRN 01/14/23 aerosol inhaler bronchospasm #8.5 grams spironolactone 25 mg tablet 25 mg PO DAILY #30 tabs 02/22/23 (Aldactone) dexamethasone 6 mg tablet 6 mg PO DAILY #5 tabs 04/04/24 Allergies Allergy/AdvReac Type Severity Reaction Status Date / Time ibuprofen Allergy Verified 07/08/23 15:06 prednisone Allergy Verified 07/08/23 15:06 [facility] Disclaimer: The information contained in this section may have been updated after the patient was seen, as this information can be updated by other users. Medical History (Updated 07/23/24 @ 10:37 by Christina Nelson MD) History of snoring Right otitis media Non compliance with medical treatment Smoking greater than 30 pack years Allergic rhinitis Asthma Dyspnea on exertion Hyperlipidemia Sinusitis Otitis externa Bronchitis Upper respiratory infection, viral Muscle spasm Vaginal yeast infection Sinusitis Surgical History History of eye surgery History of hysterectomy History of tubal ligation History of section Family History Other COPD (chronic obstructive pulmonary disease) Diabetes Hypertension Social History Smoking Status: Unknown if ever smoked second hand exposure: No alcohol intake: never substance use type: former substance user current occupational status: other Travel in the last 8 weeks: None housing: house current occupational exposures/hazards: No ROS Obtained: Yes unobtainable due to mental status Physical Exam General General appearance: alert and appears intoxicated Comment: yawning, flailing in bed but redirectable Head Head exam: atraumatic and normocephalic Eye Eye exam: Present PERRL (pupil 4 mm bilaterally and reactive), EOMI and discharge (clear discharge) ENT ENT exam: Present mucous membranes moist Neck Neck exam: Present normal inspection and trachea midline; Absent tenderness Chest Chest inspection: Present normal inspection and symmetric chest wall rise Respiratory Respiratory exam: Present normal lung sounds bilaterally; Absent respiratory distress or accessory muscle use Cardiovascular Cardiovascular exam: Present regular rate and normal rhythm Abdominal Exam Abdominal exam: Present soft; Absent distention or tenderness Back Exam Back exam: Present normal inspection and full ROM; Absent tenderness Neurological Exam Neurological exam: Present alert and other Expanded Neurological Exam Patient oriented to: Present person; Absent place or time Speech: Present fluid speech Cranial nerves: Normal: EOM function (II, III, IV, ) Motor strength - LUE: 5/5 Motor strength - RUE: 5/5 Motor strength - LLE: 5/5 Motor strength - RLE: 5/5 Sensory exam upper extremity: Normal: light touch Psychiatric Psychiatric exam: Present agitated Skin Skin exam: Present diaphoresis and other (no bruising or external signs of trauma) Medical Decision Making Medical Records Screening: Per USPSTF and CDC recommendations, given the prevalence of disease in our region, it is our hospital?s policy to screen for HIV and viral Hepatitis for all patients aged 18 and over and those with ongoing risk factors. [place] Inquiry Pt receiving controlled substance: No Vital Signs: 07/23/24 08:15 07/23/24 08:40 07/23/24 08:58 Pulse Rate 88 Pulse Rate [Right Brachial] 88 Respiratory Rate 10 L 17 Blood Pressure 157/71 H Blood Pressure [Right Arm] 111/64 Blood Pressure Mean [Right Arm] 79 Blood Pressure Source [Right Arm] Automatic Cuff Blood Pressure Position [Right Arm] Sitting 02 Sat by Pulse Oximetry 96 96 99 Oxygen Delivery Method Nasal Cannula Vapotherm Vapotherm Oxygen Flow Rate (LPM) 6 20 07/23/24 09:25 07/23/24 09:28 07/23/24 09:31 Pulse Rate 95 H 88 Pulse Rate [Right Brachial] Respiratory Rate Blood Pressure 149/88 H 156/90 H Blood Pressure [Right Arm] Blood Pressure Mean [Right Arm] Blood Pressure Source [Right Arm] Blood Pressure Position [Right Arm] 02 Sat by Pulse Oximetry 92 L 93 L 96 Oxygen Delivery Method Vapotherm Nasal Cannula Vapotherm Oxygen Flow Rate (LPM) 6 07/23/24 09:41 Pulse Rate 88 Pulse Rate [Right Brachial] Respiratory Rate 18 Blood Pressure 152/93 H Blood Pressure [Right Arm] Blood Pressure Mean [Right Arm] Blood Pressure Source [Right Arm] Blood Pressure Position [Right Arm] 02 Sat by Pulse Oximetry 94 L Oxygen Delivery Method Nasal Cannula Oxygen Flow Rate (LPM) Lab Data Lab Results 07/23/24 08:17: VBG pH 7.36, VBG pCO2 66.7 H, VBG pO2 42.1 H, VBG HCO3 37.0 H, VBG Total CO2 39.1 H, VBG O2 Saturation 79.3 H, VBG Base Excess 11.6 H, VBG Lactic Acid 3.1 H 07/23/24 08:31: Urine Color Yellow, Urine Appearance Clear, Urine pH 7.5, Ur Specific [place] 1.015, Urine Protein Negative, Urine Glucose (UA) Negative, Urine Ketones Negative, Urine Blood Negative, Urine Nitrate Negative, Urine Bilirubin Negative, Urine Urobilinogen 2.0, Ur Leukocyte Esterase Negative, Urine Opiates Screen Negative, Urine Methadone Screen Positive H, Ur Barbituates Screen Negative, Ur Phencyclidine Scrn Negative, Ur Amphetamines Screen Negative, U Benzodiazepines Scrn Negative, Urine Cocaine Screen Negative, U Marijuana (THC) Screen Negative 07/23/24 08:48: WBC 11.6 H, RBC 4.04 L, Hgb 12.1 L, Hct 39.1, MCV 96.6, MCH 29.9, MCHC 30.9 L, RDW 13.3, Plt Count 186, MPV 8.2, Neut % (Auto) 85.1 H, Lymph % (Auto) 8.3 L, [place] % (Auto) 6.3, Eos % (Auto) 0.2, Baso % (Auto) 0.1, Neut # (Auto) 9.9 H, Lymph # (Auto) 1.0, [place] # (Auto) 0.7, Eos # (Auto) 0.0, Baso # (Auto) 0.0, PT 11.4, INR 1.02, APTT 23.6, Sodium 135 L, Potassium 3.4 L, Chloride 96 L, Carbon Dioxide 36 H, Anion Gap 6.4, BUN 19 H, Creatinine 1.10 H, Estimated Creat Clear 56, Estimated GFR 54 L, Est GFR ( Amer) 65, Glucose 100, Calcium 8.6, Total Bilirubin 0.8, AST 330 H*, ALT 234 H, Alkaline Phosphatase 87, Total Creatine Kinase 157 H, Troponin I 0.24 H, NT-Pro-B Natriuret Pep 1290 H, Total Protein 6.6, Albumin 3.6, Globulin 3.0, Albumin/Globulin Ratio 1.2, Triglycerides 36, Cholesterol 126 L, LDL Cholesterol Direct 55.92 L, VLDL Cholesterol 7, HDL Cholesterol 44, Cholesterol/HDL Ratio 2.9, Procalcitonin 0.275, TSH 0.17 L, Thyroxine (T4) 8.5, HCG, Quant < 2, Salicylates < 1.0 L, Acetaminophen < 10 L, Plasma/Serum Alcohol < 10 07/23/24 08:50: SARS-CoV-2 (PCR) Not detected, Influenza A Untype (PCR) Not detected, Influenza Type B (PCR) Not detected 07/23/24 08:48 07/23/24 08:48 Orders (Tests/Meds): ED MEDICATIONS Generic Name Dose Route Start Last Admin Trade Name Bridgerq PRN Reason Stop Dose Admin Cefepime HCl 2 gm/ Sodium 100 mls @ 200 mls/hr 07/23/24 08:30 07/23/24 09:25 Chloride IV 08/02/24 08:29 200 mls/hr Q8H SAADIA Administration Metronidazole 500 mg in 100 mls @ 100 mls/hr 07/23/24 09:00 07/23/24 10:01 Flagyl 500mg/100ml Ivpb IV 08/02/24 08:59 100 mls/hr Q8H SAADIA Administration Vancomycin HCl 2,250 mg/ 250 mls @ 125 mls/hr 07/23/24 08:45 Sodium Chloride IV 07/23/24 10:44 ONCE ONE Dextrose/Water 500 mls @ 25 mls/hr 07/23/24 10:30 07/23/24 10:25 Dextrose 10% In Water 500ml IV 08/22/24 10:29 25 mls/hr .Q20H SAADIA Administration Sodium Chloride 10 ml 07/23/24 08:17 Sodium Chloride 0.9% 10ml Flush Syringe IV 08/22/24 08:16 NEEDED PRN Maintain IV Site Sodium Chloride 10 ml 07/23/24 09:29 07/23/24 09:30 Sodium Chloride 0.9% 10ml Syr (Rad Only) IV 08/22/24 09:28 10 ml NEEDED PRN Administration Maintain IV Site Discontinued Medications Generic Name Dose Route Start Last Admin Trade Name Hermilo PRN Reason Stop Dose Admin Acetaminophen 650 mg 07/23/24 08:27 07/23/24 09:27 Acetaminophen 325mg Suppository RC 07/23/24 08:28 650 mg ONCE ONE Administration Lactated Ringer's 1,640 mls @ 820 mls/hr 07/23/24 08:27 07/23/24 09:28 Lactated Ringer's 1000 Ml Bag 30 ml/kg infuse over 2 hr (1640 ml) 07/23/24 10:26 820 mls/hr IV Administration .Q2H ONE Dextrose/Water 250 mls @ 999 mls/hr 07/23/24 08:35 07/23/24 09:41 Dextrose 10% In Water 500ml IV 08/22/24 08:34 Not Given .Q16M [facility] Dextrose/Water 250 mls @ 999 mls/hr 07/23/24 08:49 07/23/24 08:11 Dextrose 10% In Water 500ml IV 07/23/24 08:50 999 mls/hr .Q16M ONE Administration Iopamidol 150 ml 07/23/24 09:29 07/23/24 09:30 Iopamidol-370 (76%);100ml Bottle IV 07/23/24 09:30 150 ml ONCE ONE Administration Midazolam HCl 2 mg 07/23/24 09:05 07/23/24 09:08 Midazolam 2mg/2ml Vial IV 07/23/24 09:06 2 mg ONCE ONE Administration Miscellaneous 1 each 07/23/24 08:45 Vancomycin Consult Request NOTAPPLIC 08/22/24 08:44 CONSULT PHARMACY [facility] Ondansetron HCl 4 mg 07/23/24 08:17 07/23/24 09:28 Ondansetron 4mg/2ml Vial IV 07/23/24 08:18 4 mg ONCE ONE Administration Sodium Chloride 90 ml 07/23/24 09:29 07/23/24 09:30 0.9 % Sodium Chloride 50 Ml Vial IV 07/23/24 09:30 90 ml ONCE ONE Administration ORDERS Category Date Time Status CT abdomen pelvis w con Stat Cat Scan 07/23/24 08:[address] angio head Stat Cat Scan 07/23/24 08:[address] angio neck Stat Cat Scan 07/23/24 08:[address] head/brain wo con Stat Cat Scan 07/23/24 08:17 Completed CTA Chest [CT angio chest PE protocol] Stat Cat Scan 07/23/24 08:27 Taken XR chest portable Stat Exams 07/23/24 08:17 Completed Acetaminophen Stat Lab 07/23/24 08:48 Completed Activated Partial Thrombo Time Stat Lab 07/23/24 08:48 Completed BNP [NT Pro Brain Natriuretic Pep.] Stat Lab 07/23/24 08:48 Completed CK [Creatine Kinase] Stat Lab 07/23/24 08:48 Completed Complete Blood Count Auto Diff Stat Lab 07/23/24 08:48 Results Comprehensive Metabolic Panel Stat Lab 07/23/24 08:48 Completed Drug Screen,Urine Stat Lab 07/23/24 08:31 Completed Ethyl Alcohol Stat Lab 07/23/24 08:48 Completed HCG,Quantitative Stat Lab 07/23/24 08:48 Completed HIV (1&2) Antibody Rapid Stat Lab 07/23/24 08:48 Received Hep C Ab with Reflex to RNA Stat Lab 07/23/24 08:48 Received Lipid Panel Stat Lab 07/23/24 08:48 Completed Procalcitonin Stat Lab 07/23/24 08:48 Completed Prothrombin Time INR Stat Lab 07/23/24 08:48 Completed Rapid PCR Covid and Flu A/B Stat Lab 07/23/24 08:50 Completed Salicylate Stat Lab 07/23/24 08:48 Completed T4 (Thyroxine) Stat Lab 07/23/24 08:48 Completed TSH [Thyroid Stimulating Hormone] Stat Lab 07/23/24 08:48 Completed Trop I [Troponin I] Timed Lab 07/23/24 10:48 Ordered Troponin I Stat Lab 07/23/24 08:48 Completed UA/RFX Microscopic Stat Lab 07/23/24 08:31 Completed Blood Culture Stat Micro 07/23/24 08:55 Received VBG [Venous Blood Gas] Stat RT 07/23/24 08:17 Completed ECG Request Stat Y 07/23/24 08:17 Ordered Medical Decision Narrative: In summary, this 44-year-old presents to the emergency department today with altered mental status. On initial evaluation patient is saturating 79% on room air requiring high flow nasal cannula, GCS 13, NIH stroke scale of 4, normotensive normal heart rate and febrile to 100.8 Fahrenheit. Differential diagnosis includes but is not limited to hemorrhagic or ischemic stroke, seizure, Intracranial mass, acute intoxication or withdrawal, thyrotoxicosis, sepsis, PE, aspiration. Based on these concerns, I ordered EKG, CT head, CT a head and neck, CT PE chest x-ray laboratory workup including Tylenol level PT/INR CBC CMP CK drugs of abuse screen ethyl alcohol quantitative hCG Pro-Derrell COVID flu swab salicylate TSH T4 troponins BNP UA with reflex VBG and blood cultures and troponins. Sepsis alert activated secondary to fever with altered mental status. Patient hypoglycemic 63 given a 250 bolus of D10. ECG personally interpreted demonstrates Normal sinus rhythm no ST elevation ST depression or T wave inversions concerning for ischemia.enlarged p waves. Patient received Given 30 cc/kg fluid bolus Tylenol suppository started on broad-spectrum antibiotics including Vanco cefepime Flagyl. Zofran for nausea for treatment. Required [address] scans 2/2 agitation. Labs personally reviewed demonstrate pCO2 of 66 pH of 7.3 lactate of 3.14, drugs of abuse + methadone, BNP 1290, AST of 330, ALT of 234 initial troponin of 0.24 mild elevation creatinine of 1.1 mild hypokalemia 3.4 XR personally interpreted demonstrates bilateral interstitial opacities. CT imaging personally interpreted demonstrate no intracranial hemorrhage or large mass, bilateral interstitial opacities concerning for PNA or aspiration I had an interactive discussion with hospitalist agreeable for admission. On reassessment Pt remains HDS, GCS13, saturating appropriately on 6 L NC. Rpeat glucose at 2 h in ED 67, given additional 500 cc bolus of D10 Of note, social determinants of health include exposure to drugs Patient ultimately admitted for altered mental status in the setting of opioid overdose complicated by hypoxic respiratory failure bilateral pneumonia and hypoglycemia Critical Care Critical Care Time Critical Care Time: Yes Attestation: On , the high probability of a clinically significant, sudden or life threatening deterioration of the following system(s) required my full and direct attention, intervention and personal management. The time I documented below is in addition to time spent performing reported procedures but includes the following listed in this critical care notation. Total Time Total Critical Care Time: 60
--- NOTE | 2024-07-23 08:27 | CT_ITS ---
PROCEDURE INFORMATION: Exam: CTA Chest With Contrast Exam date and time: 07/23/2024 9:18 AM Age: 44 years old Clinical indication: Other: Hypoxia, AMS TECHNIQUE: Imaging protocol: Computed tomographic angiography of the chest with contrast. Exam focused on the arteries. 3D rendering (Not supervised by radiologist): MIP and/or 3D reconstructed images were created by the technologist. Radiation optimization: All CT scans at this facility use at least one of these dose optimization techniques: automated exposure control; mA and/or kV adjustment per patient size (includes targeted exams where dose is matched to clinical indication); or iterative reconstruction. Contrast material: ISOVUE 370; Contrast volume: 70 ml; Contrast route: INTRAVENOUS (IV); COMPARISON: CR XR CHEST PORTABLE 07/23/2024 9:18 AM FINDINGS: Pulmonary arteries: There is suboptimal enhancement of the pulmonary arterial tree limiting assessment for pulmonary embolism. No central filling defect is identified. Aorta: Unremarkable. No aortic aneurysm. No aortic dissection. Lungs: Patchy nodular ground-glass interstitial disease is noted most prominently in the lower lobes. Pleural spaces: Unremarkable. No pneumothorax. No pleural effusion. Heart: Unremarkable. No cardiomegaly. No pericardial effusion. Coronary arteries: There is no coronary artery calcification. Lymph nodes: Unremarkable. No enlarged lymph nodes. Diaphragm: There is a small hiatal hernia. Bones/joints: Unremarkable. No acute fracture. Soft tissues: Unremarkable. IMPRESSION: Pneumonia. Suboptimal assessment for pulmonary embolism. No central filling defect identified. Small hiatal hernia.
--- NOTE | 2024-07-23 08:30 | PC.NURSE ---
delay in labs and blood cultures due to pt being difficult stick. lab work obtained through ultrasound IV placement.
--- NOTE | 2024-07-23 08:30 | PC.NURSE ---
patients FSBS 63 on arrival.
[2024-07-23 08:43] LABS: Appearance,Urine CLEAR (Clear); Bilirubin,Urine Negative (Negative); Blood, Urine Negative (Negative); Color,Urine YELLOW (Yellow); Glucose,Urine (UA) Negative (Negative); Ketones,Urine Negative (Negative); Leukocyte Esterase,Urine Negative (Negative); Nitrate,Urine Negative (Negative); PH,Urine 7.5 (5.0-8.5); Protein,Urine Negative (Negative); Specific Gravity, Urine 1.015 (1.005-1.030)
--- NOTE | 2024-07-23 08:44 | CT_ITS ---
PROCEDURE INFORMATION: Exam: CT Abdomen And Pelvis With Contrast Exam date and time: 07/23/2024 9:18 AM Age: 44 years old Clinical indication: Other: Sepsis TECHNIQUE: Imaging protocol: Computed tomography of the abdomen and pelvis with contrast. 3D rendering (Not supervised by radiologist): MIP and/or 3D reconstructed images were created by the technologist. Radiation optimization: All CT scans at this facility use at least one of these dose optimization techniques: automated exposure control; mA and/or kV adjustment per patient size (includes targeted exams where dose is matched to clinical indication); or iterative reconstruction. Contrast material: ISOVUE; Contrast volume: 70 ml; Contrast route: IV; COMPARISON: CT ANGIO CHEST PE PROTOCOL 07/23/2024 9:18 AM FINDINGS: Lungs: Patchy nodular ground-glass interstitial disease is noted in the visualized lower lobes. Please correlate with dedicated imaging of the thorax. Diaphragm: There is a small hiatal hernia. Liver: Normal. No mass. Gallbladder and biliary ducts: The gallbladder is relatively contracted with somewhat hyperemic mucosa. Pancreas: Normal. No ductal dilation. Spleen: Normal. No splenomegaly. Adrenal glands: There is a 16 x 14 mm low-density right adrenal nodule measuring [address] criteria for benign adenoma. Kidneys and ureters: The kidneys enhance and excrete contrast symmetrically there is no hydronephrosis. There is cortical scarring noted on the right. Stomach and bowel: There is no evidence for small bowel obstruction. Diverticular disease is noted in the colon. There is moderate stool noted in the proximal 2/3 of the colon. Appendix: No evidence of appendicitis. Intraperitoneal space: Unremarkable. No free air. No significant fluid collection. Vasculature: Unremarkable. No abdominal aortic aneurysm. Lymph nodes: Unremarkable. No enlarged lymph nodes. Urinary bladder: The urinary bladder is relatively contracted. Reproductive: Unremarkable as visualized. Bones/joints: Unremarkable. No acute fracture. Soft tissues: Unremarkable. IMPRESSION: Pneumonia. Please correlate with dedicated imaging of the thorax. Constipation and diverticulosis. Hiatal hernia. 16 mm right adrenal nodule meeting CT criteria for benign adenoma. COMMENTS: Consistent with the [employer]'s Incidental Findings Committee white paper (J Am Ranjit Radiol 2017): Any incidental adrenal lesion less than 1 cm is likely benign. No follow-up imaging is recommended for these lesions per consensus recommendations based on imaging criteria. Further lab evaluation could be pursued if warranted based on clinical findings.
[2024-07-23 08:52] LABS: VBG Base Excess 11.6 mmol/L (-2.4-2.3); VBG Oxygen Saturation 79.3 % (50-70); VBG PH 7.36 mmol/L (7.31-7.41); VBG PO2 42.1 mmol/L (28-40); VBG Total CO2 39.1 mmol/L (23-27)
[2024-07-23 08:53] LABS: Lactate Venous 3.1 mmol/L (0.4-2.0); VBG PCO2 66.7 mmol/L (35-51)
[2024-07-23 08:53] LABS: Barbiturates Screen,Urine Negative ng/ml (<200)
[2024-07-23 08:54] LABS: Benzodiazepines Screen,Urine Negative ng/ml (<200)
[2024-07-23 08:55] LABS: Amphetamine/Metha Screen,Urine Negative ng/ml (<1000); Methadone Screen,Urine Positive ng/ml (<300)
[2024-07-23 08:56] LABS: Cannabinoid Screen,Urine Negative ng/ml (<50)
[2024-07-23 08:57] LABS: Cocaine Screen,Urine Negative ng/ml (<300); Opiate Screen,Urine Negative ng/ml (<300)
[2024-07-23 08:58] LABS: Phencyclidine Screen,Urine Negative ng/ml (<25)
[2024-07-23 09:02] LABS: Coronavirus 19, PCR Not Detected (NotDetected); Influenza A, PCR Not Detected (NotDetected); Influenza B, PCR Not Detected (NotDetected)
--- NOTE | 2024-07-23 09:05 | PC.NURSE ---
Pt. to CT
[2024-07-23] MEDS: MIDAZOLAM 2MG/2ML VIAL 2 MG IV (09:08)
[2024-07-23 09:18] LABS: Ethyl Alcohol < 10 mg/dl (0-10)
[2024-07-23 09:20] LABS: Activated Partial Thrombo Time 23.6 seconds (22.8-30.6); INR 1.02 (0.9-1.1); Prothrombin Time 11.4 seconds (10.1-12.5)
[2024-07-23 09:23] LABS: NT Pro Brain Natriuretic Pep. 1290 pg/mL (0-125)
[2024-07-23 09:24] LABS: Albumin Level 3.6 g/dl (3.5-5.0); Chloride 96 mmol/L (98-107)
[2024-07-23 09:25] LABS: Potassium 3.4 mmoL/L (3.5-5.1); Sodium 135 mmol/L (136-145)
[2024-07-23] MEDS: CEFEPIME HCL 2 GM in 0.9 % SODIUM CHLORIDE 100 ML IV (09:25)
[2024-07-23 09:27] LABS: Alanine Aminotransferase 234 U/L (12-78); Albumin/Globulin Ratio 1.2 (1.1-1.8); Alkaline Phosphatase 87 U/L (38-126); Aspartate Amino Transferase 330 U/L (14-36); Bilirubin,Total 0.8 mg/dl (0.2-1.3); Blood Urea Nitrogen 19 mg/dl (7-17); Creatine Kinase 157 U/L (30-135); Creatinine Clearance Estimated 56 mL/min (50-200); Estimated Glomerular Filt Rate 54 ml/min (>60); GFR (African American) 65 ML/MIN (>60); Total Protein,Serum 6.6 g/dl (6.3-8.2)
[2024-07-23] MEDS: ACETAMINOPHEN 325MG SUPPOSITORY 650 MG RC (09:27)
[2024-07-23 09:28] LABS: Calcium 8.6 mg/dl (8.4-10.2); Chol/HDL Ratio 2.9 (1-3.5); Cholesterol 126 mg/dl (140-200); Glucose 100 mg/dl (74-100); HDL Cholesterol 44 mg/dl (40-60); Triglycerides 36 mg/dl (30-150); VLDL Cholesterol 7 mg/dL (0-40)
[2024-07-23] MEDS: LACTATED RINGERS 1000ML 1,640 ML 820 ML IV (09:28)
[2024-07-23] MEDS: ONDANSETRON 4MG/2ML VIAL 4 MG IV ×2 (09:28→23:47)
[2024-07-23] MEDS: 0.9 % SODIUM CHLORIDE 50 ML VIAL 90 ML IV (09:30)
[2024-07-23] MEDS: IOPAMIDOL-370 (76%);100ML BOTTLE 150 ML IV (09:30)
[2024-07-23] MEDS: SODIUM CHLORIDE 0.9% 10ML SYR (RAD ONLY) 10 ML IV (09:30)
[2024-07-23 09:35] LABS: Anion Gap 6.4 mEq/L (5-15); Carbon Dioxide 36 mmol/L (22.0-30.0)
[2024-07-23 09:39] LABS: Direct LDL Cholesterol 55.92 mg/dL (100-129)
[2024-07-23 09:43] LABS: Acetaminophen < 10 ug/ml (10-30); Salicylate < 1.0 mg/dL (2.0-20.0); Troponin I 0.24 ng/ml (0.00-0.034)
[2024-07-23 09:45] LABS: T4 (Thyroxine) 8.5 ug/dl (5.53-11.0)
[2024-07-23 09:46] LABS: HCG,Quantitative < 2 mIU/ml (0-5.42)
[2024-07-23 09:58] LABS: Thyroid Stimulating Hormone 0.17 uIU/mL (0.465-4.68)
[2024-07-23] MEDS: METRONIDAZ/SOD CHL 500 MG/100 ML PIGGYBACK 100 MG IV (10:01)
[2024-07-23 10:10] LABS: Procalcitonin 0.275 ng/mL (0.0-2.0)
[2024-07-23] MEDS: DEXTROSE 10 % IN WATER 500 ML 25 ML IV (10:25)
[2024-07-23 10:31] LABS: Basophils % 0.1 % (0.1-2.0); Eosinophils % 0.2 % (0.1-12.0); Hematocrit 39.1 % (37.0-47.0); Hemoglobin 12.1 g/dL (12.2-16.2); Lymphocytes % 8.3 % (10-50); Mean Corpuscular HGB Conc 30.9 g/dL (31.8-35.4); Mean Corpuscular Hemoglobin 29.9 pg (27.0-31.2); Mean Corpuscular Volume 96.6 fl (81-99); Mean Platelet Volume 8.2 fl (7.4-10.4); Monocytes # 0.7 K/mm3 (0.1-1.0); Monocytes % 6.3 % (1.7-9.3); Neutrophils # 9.9 K/mm3 (1.8-7.8); Neutrophils % 85.1 % (37.0-80.0); Platelet Count 186 K/mm3 (142-424); Red Blood Count 4.04 M/mm3 (4.20-5.40); Red Cell Distribution Width 13.3 % (11.5-17.5); White Blood Count 11.6 K/mm3 (4.8-10.8)
[2024-07-23 10:32] LABS: MANUAL DIFFERENTIAL MANUAL DIFFERENTIAL (MANUAL DIFF)
--- NOTE | 2024-07-23 10:32 | PC.NURSE ---
on phone with hospitalist for admission
--- NOTE | 2024-07-23 10:36 | PC.NURSE ---
call made to greenhouse manager for bed placement
[2024-07-23] MEDS: VANCOMYCIN HCL 2,250 MG in 0.9 % SODIUM CHLORIDE 250 ML 125 MG IV (10:40)
--- NOTE | 2024-07-23 10:40 | P.HP_ITS ---
History of Present Illness *Admission Date: 07/23/24 *Reason for visit:: AMS *History of present illness: Ms. Ramírez is a 44-year-old female with history of opiate addiction, on maintenance therapy, morbid obesity, COPD, tobacco use disorder. Presented to the ER because of altered mental status. EMS picked the patient up at home because family could not awaken her. Recently switched from Suboxone to methadone. Report from the ER was that she switched yesterday, report from patient after arriving to the floor after admission was that she switched 2 weeks ago. She has been sleepier than normal according to family. Patient was unresponsive and family not able to awaken her. Family administered 4 mg intranasal Narcan with some response. EMS provided an additional dose as patient remained altered and had low respiratory rate. Placed on supplemental oxygen due to sats reportedly in the 70s. On arrival to the ER, patient continues to be somewhat altered necessitating 6 L oxygen to maintain sats above 90%. Workup in the ER with chest imaging showing pneumonia concerning for aspiration, elevated CO2 with normal pH on VBG, and GCS of 13. Medicine consulted for admission and further management. Upon arrival to the floor, patient able to answer questions but dozes off. Respiratory rate 10-12. Maintaining sats mid to high 90s on 6 L. Does not recall coming to the hospital or why she came to the hospital. Does report however that she switched from Suboxone to methadone 2 weeks ago, on 65 mg daily. Also on gabapentin 800 mg 3 times a day. Occasionally will take Klonopin though has not taken it in 2 months per her report (prescribed a weeks worth 2 weeks ago per med rec). Admits to taking gabapentin illicitly prior to being prescribed her current regimen. Also was taking more of her Suboxone then prescribed prior to switching to methadone. Does not normally wear oxygen. Smokes about a pack a day. Denies fever, chest pain. does complain of headache and generalized bodyaches. Appears frustrated that she was given Narcan. You put me into withdrawal . Informed her it was given to save her life, that she was not breathing appropriately. Reports no bowel movement in 2 days. [facility] Disclaimer: The information contained in this section may have been updated after the patient was seen, as this information can be updated by other users. Medical History History of snoring Right otitis media Non compliance with medical treatment Smoking greater than 30 pack years Allergic rhinitis Asthma Dyspnea on exertion Hyperlipidemia Sinusitis Otitis externa Bronchitis Upper respiratory infection, viral Muscle spasm Vaginal yeast infection Sinusitis Surgical History History of eye surgery History of hysterectomy History of tubal ligation History of section Family History Other COPD (chronic obstructive pulmonary disease) Diabetes Hypertension Social History Smoking Status: Unknown if ever smoked second hand exposure: No alcohol intake: never substance use type: former substance user current occupational status: other Travel in the last 8 weeks: None housing: house current occupational exposures/hazards: No Review of Systems Review of Systems Review of systems (narrative): 14 point review of systems performed, pertinent positives and negatives as per HPI Meds Home Medications and Allergies Home Medications ?Medication ?Instructions ?Recorded ?Confirmed ?Type clonazepam 0.5 mg tablet 0.5 mg PO DAILYP PRN Anxiety 07/23/24 07/23/24 History clonidine HCl 0.1 mg tablet 0.1 mg PO DAILY 07/23/24 07/23/24 History gabapentin 800 mg tablet 800 mg PO TID 07/23/24 07/23/24 History ondansetron HCl 4 mg tablet 4 mg PO TIDP PRN Nausea And 07/23/24 07/23/24 History Vomiting New Prescriptions to Start Prescriptions: Allergies Allergy/AdvReac Type Severity Reaction Status Date / Time ibuprofen Allergy Verified 07/08/23 15:06 prednisone Allergy Verified 07/08/23 15:06 Exam Data for Last 24 hours Vital signs and Labs for Last 24 Hours: Pulse Resp BP Pulse Ox O2 Del Method O2 Flow Rate FiO2 88 18 152/93 H 94 L Nasal Cannula 6 100 07/23/24 09:41 07/23/24 09:41 07/23/24 09:41 07/23/24 09:41 07/23/24 09:41 07/23/24 09:28 07/23/24 08:40 Laboratory Results - last 24 hr 07/23/24 08:17: VBG pH 7.36, VBG pCO2 66.7 H, VBG pO2 42.1 H, VBG HCO3 37.0 H, VBG Total CO2 39.1 H, VBG O2 Saturation 79.3 H, VBG Base Excess 11.6 H, VBG Lactic Acid 3.1 H 07/23/24 08:31: Urine Color Yellow, Urine Appearance Clear, Urine pH 7.5, Ur Specific [place] 1.015, Urine Protein Negative, Urine Glucose (UA) Negative, Urine Ketones Negative, Urine Blood Negative, Urine Nitrate Negative, Urine Bilirubin Negative, Urine Urobilinogen 2.0, Ur Leukocyte Esterase Negative, Urine Opiates Screen Negative, Urine Methadone Screen Positive H, Ur Barbituates Screen Negative, Ur Phencyclidine Scrn Negative, Ur Amphetamines Screen Negative, U Benzodiazepines Scrn Negative, Urine Cocaine Screen Negative, U Marijuana (THC) Screen Negative 07/23/24 08:48: WBC 11.6 H, RBC 4.04 L, Hgb 12.1 L, Hct 39.1, MCV 96.6, MCH 29.9, MCHC 30.9 L, RDW 13.3, Plt Count 186, MPV 8.2, Neut % (Auto) 85.1 H, Lymph % (Auto) 8.3 L, [place] % (Auto) 6.3, Eos % (Auto) 0.2, Baso % (Auto) 0.1, Neut # (Auto) 9.9 H, Lymph # (Auto) 1.0, [place] # (Auto) 0.7, Eos # (Auto) 0.0, Baso # (Auto) 0.0, PT 11.4, INR 1.02, APTT 23.6, Sodium 135 L, Potassium 3.4 L, Chloride 96 L, Carbon Dioxide 36 H, Anion Gap 6.4, BUN 19 H, Creatinine 1.10 H, Estimated Creat Clear 56, Estimated GFR 54 L, Est GFR ( Amer) 65, Glucose 100, Calcium 8.6, Total Bilirubin 0.8, AST 330 H*, ALT 234 H, Alkaline Phosphatase 87, Total Creatine Kinase 157 H, Troponin I 0.24 H, NT-Pro-B Natriuret Pep 1290 H, Total Protein 6.6, Albumin 3.6, Globulin 3.0, Albumin/Globulin Ratio 1.2, Triglycerides 36, Cholesterol 126 L, LDL Cholesterol Direct 55.92 L, VLDL Cholesterol 7, HDL Cholesterol 44, Cholesterol/HDL Ratio 2.9, Procalcitonin 0.275, TSH 0.17 L, Thyroxine (T4) 8.5, HCG, Quant < 2, Salicylates < 1.0 L, Acetaminophen < 10 L, Plasma/Serum Alcohol < 10 07/23/24 08:50: SARS-CoV-2 (PCR) Not detected, Influenza A Untype (PCR) Not detected, Influenza Type B (PCR) Not detected I & O for Last 24 hours: Intake & Output 07/20/24 07/21/24 07/22/24 07/23/24 23:59 23:59 23:59 23:59 Weight 118.841 kg Constitutional Constitutional: mild distress, morbidly obese, chronically ill appearing, disheveled and cooperative *Routine HEENT Exam Head: Present normocephalic Eye: Present EOMI and PERRL ENT: Present mucous membranes moist *Routine Neck Exam Neck: Present supple; Absent lymphadenopathy *Routine Respiratory Exam Respiratory: Present rhonchi, wheezes and crackles; Absent respiratory distress *Routine Cardiovascular Exam Cardiovascular: Present RRR *Routine Abdominal Exam Abdominal: Present soft and normoactive bowel sounds; Absent tenderness *Routine Rectal Exam Rectal:: deferred *Routine Genitalia Exam Genitalia:: deferred *Routine Extremities Exam Extremities: Present edema (2+ knee); Absent cyanosis or clubbing *Routine Skin Exam Skin: Present intact and warm; Absent rash *Routine Neurological Exam Neurological: Present alert, altered mental status and moving all extremities Assessment and Plan *Assessment and plan (1) Toxic encephalopathy: Status: Acute Category: Medical Code(s): G92.9 - Unspecified toxic encephalopathy (2) Acute hypoxic respiratory failure: Status: Acute Category: Medical Code(s): J96.01 - Acute respiratory failure with hypoxia (3) Pneumonia: Status: Acute Category: Medical Code(s): J18.9 - Pneumonia, unspecified organism (4) Opioid overdose: Status: Acute Category: Medical Code(s): T40.2X1A - Poisoning by other opioids, accidental (unintentional), initial encounter (5) COPD (chronic obstructive pulmonary disease): Status: Acute Qualifiers: COPD type: unspecified COPD Qualified Code(s): J44.9 - Chronic obstructive pulmonary disease, unspecified Category: Medical Code(s): J44.9 - Chronic obstructive pulmonary disease, unspecified (6) HTN (hypertension): Status: Chronic Qualifiers: Hypertension type: unspecified Qualified Code(s): I10 - Essential (primary) hypertension Category: Medical Code(s): I10 - Essential (primary) hypertension (7) Smoking greater than 30 pack years: Status: Chronic Category: Social Hx Code(s): F17.210 - Nicotine dependence, cigarettes, uncomplicated (8) Opioid use disorder, severe, on maintenance therapy: Status: Chronic Category: Medical Code(s): F11.20 - Opioid dependence, uncomplicated (9) Obesity: Status: Chronic Qualifiers: Body mass index: BMI 40.0-44.9 Obesity classification: adult class 3 (BMI >= 40) Obesity type: due to excess calories Serious obesity comorbidity presence: with serious comorbidity Qualified Code(s): E66.01 - Morbid (severe) obesity due to excess calories; Z68.41 - Body mass index [BMI] 40.0-44.9, adult Category: Medical Code(s): E66.9 - Obesity, unspecified Plan 44-year-old female with opiate use disorder on maintenance therapy who presented with altered mental status and hypoxia. On presentation, found to be hypoxic necessitating supplemental oxygen. Responding to Narcan. Imaging showing pneumonia. Discussed case with ER physician, request admission for further management. I agreed to admit for IV antibiotics, weaning of oxygen, monitoring for improvement in respiratory status and clearance of intoxicants. Necessitating stepdown level of care. Problems addressed as follows Toxic encephalopathy Opiate use disorder Aspiration pneumonia Acute hypoxemic respiratory failure Polypharmacy -Per my review of CT of chest, has bilateral patchy consolidation consistent with aspiration pneumonia, also appears to have a component of edema and volume overload. White count elevated 11.6. New oxygen requirement of 6 L to maintain sats above 90%. Blood gas normal with elevated pCO2 at 66. -Initiated on vent, cefepime, Flagyl in the ER. Plan to continue Zosyn 3.375 gm every 6 hours for aspiration pneumonia -Monitor for decompensation. Received multiple doses of Narcan. Maintaining respiratory rate above 10 at this time. Low threshold to readminister Narcan given long half-life of methadone. Caution as to not put patient into acute opi oid withdrawal either. -Clarified patient's dose of medications. Takes 65 mg methadone for the past 2 weeks. Also taking 800 mg gabapentin 3 times a day. Klonopin 0.5 mg occasionally. Patient admits to taking more Suboxone than prescribed prior to her switch to methadone and admits to taking gabapentin illicitly prior to it being prescribed a few weeks ago. Concern that she is taking more of current medications than she is supposed to. Will hold methadone and gabapentin at this time pending improvement in mentation. -Fever 100.8 on presentation. Kidney function electrolytes normal with BUN 19, creatinine 1.1. -CBC, CMP, magnesium ordered for the morning. Morbid obesity: Complicates all aspects of her care Elevation in troponin Suspected CHF - BNP elevated at 1200. Will administer Bumex 1 mg IV x 1. Has edema on exam. Will obtain echo in the morning. Concern for possible CHF component. - Troponin elevated at 0.24 and 0.30 on serial assessment. Suspect secondary to stress of event with Narcan, hypoxia, aspiration -No chest pain or changes on EKG. Tobacco use disorder: Nicotine patch 21 mg daily Constipation: No bowel movement for 2 days. Initiate docusate senna 1 tablet twice daily Full code: when asked about CODE STATUS, patient said she did not want to be resuscitated/DNR. However given her presentation with encephalopathy from opiate overdose/polypharmacy, Versed given to keep her relaxed for CT, I feel it would be an appropriate at this time to have her sign paperwork for DNR status. Will reevaluate in the morning. N.p.o. pending improvement in mentation
[2024-07-23 11:08] LABS: HIV (1&2) Antibody Rapid NONREACTIVE (NONREACTIVE)
--- NOTE | 2024-07-23 11:35 | PC.NURSE ---
pt arrived to floor via stretcher @[id number]
[2024-07-23 12:53] LABS: Reflex Lactic Add Lactic Reflex
[2024-07-23] MEDS: BUMETANIDE 1MG/4ML VIAL 1 MG IV (12:53)
[2024-07-23 13:43] LABS: Lactic Acid Follow Up (RFLX 1) 0.7 mmol/L (0.7-2.1)
[2024-07-23 14:23] LABS: Eosinophils % 2 % (0-3); Lymphocytes % 8 % (10-50); Monocytes % 8 % (2-9); Neutrophils % 82 % (42-76); Platelet Estimate Slight Decrease; Total Cells Counted 100
[2024-07-23 14:24] LABS: Hypochromasia 3+
[2024-07-23 14:25] LABS: Anisocytosis 1+; Microcytosis 1+; Poikilocytosis 1+; RBC Morphology Normal
[2024-07-23] MEDS: PIPERACILLIN/TAZO 4.5 GM in 0.9 % SODIUM CHLORIDE 100 ML IV ×2 (14:56→20:39)
[2024-07-23 15:53] LABS: POC Glucose,Bedside 89 (70-110)
[2024-07-23] MEDS: NICOTINE 21MG/24HR PATCH 21 MG TD (16:12)
[2024-07-23 17:38] LABS: POC Glucose,Bedside 157 (70-110)
--- NOTE | 2024-07-23 18:12 | PC.NURSE ---
pt is resting at bed with daughter at bedside. a &o x4. pt has been very sedated since arriving to the floor. she was unable to maintain conversation until about 1730. vss. pt is on 6L nc and is tolerating well with sats >93%. pt will occasionally remove cannula and sats drop to the 70s. lungs have expiratory wheezes noted on auscultation. bowel sounds active. no open skin areas. edema noted to BLE. abx given per dec. ps is a fingerstick with 1630 being 157. pt will ambulate independently to the restroom and has been urinating into a hat for accurate i&O. pt still has periods of going in and out of sleep, but is easily aroused. no complaints at this time. call light in reach, bed in low and locked position, and bed alarm on for pt safety.
[2024-07-23] MEDS: SENNOSIDES 8.6MG/DOCUSATE 50MG TABLET 1 TAB PO (20:04)
[2024-07-23] MEDS: GABAPENTIN 100MG CAPSULE 400 MG PO (20:04)
[2024-07-23 20:17] LABS: POC Glucose,Bedside 156 (70-110)
[2024-07-23] MEDS: KETOROLAC 30MG/ML VIAL 15 MG IV (23:47)
[2024-07-24] VITALS (15 sets, daily range): BP systolic 98–145; BP diastolic 59–86; PULSE 65–96; RESP 10–24; TEMP 36.3–36.7; O2SAT 90–98; BMI 44.2
[2024-07-24] MEDS: PIPERACILLIN/TAZO 4.5 GM in 0.9 % SODIUM CHLORIDE 100 ML IV ×2 (04:07→08:13)
--- NOTE | 2024-07-24 04:28 | PC.NURSE ---
Pt is a&ox4. She has remained somnolent but easily aroused. She has tolerated 5L nasal cannula with SP02 >90% and RR >10. Expiratory rhonchi heard throughout lungs and bowel sounds hypoactive. 2+ edema noted to BLE. She did complain of nausea and a headache once this shift and was treated per DEC. She is currently asleep with call light within reach.
[2024-07-24] MEDS: ACETAMINOPHEN 325MG TAB 650 MG PO (05:31)
[2024-07-24 05:44] LABS: POC Glucose,Bedside 98 (70-110)
[2024-07-24] MEDS: KETOROLAC 30MG/ML VIAL 15 MG IV ×2 (05:50→18:51)
[2024-07-24 06:25] LABS: Basophils % 0.4 % (0.1-2.0); Eosinophils # 0.1 K/mm3 (0.0-0.4); Eosinophils % 1.4 % (0.1-12.0); Hematocrit 40.3 % (37.0-47.0); Hemoglobin 11.9 g/dL (12.2-16.2); Lymphocytes # 1.4 K/mm3 (0.7-4.5); Lymphocytes % 18.3 % (10-50); Mean Corpuscular HGB Conc 29.6 g/dL (31.8-35.4); Mean Corpuscular Hemoglobin 29.2 pg (27.0-31.2); Mean Corpuscular Volume 98.7 fl (81-99); Mean Platelet Volume 8.2 fl (7.4-10.4); Monocytes # 0.5 K/mm3 (0.1-1.0); Monocytes % 6.5 % (1.7-9.3); Neutrophils # 5.8 K/mm3 (1.8-7.8); Neutrophils % 73.4 % (37.0-80.0); Platelet Count 166 K/mm3 (142-424); Red Blood Count 4.09 M/mm3 (4.20-5.40); Red Cell Distribution Width 13.3 % (11.5-17.5); White Blood Count 7.9 K/mm3 (4.8-10.8)
[2024-07-24 06:32] LABS: Albumin Level 3.4 g/dl (3.5-5.0); Chloride 93 mmol/L (98-107); Potassium 3.7 mmoL/L (3.5-5.1); Sodium 135 mmol/L (136-145)
[2024-07-24 06:34] LABS: Alanine Aminotransferase 284 U/L (12-78); Aspartate Amino Transferase 295 U/L (14-36); Blood Urea Nitrogen 21 mg/dl (7-17); Creatinine Clearance Estimated 102 mL/min (50-200); Estimated Glomerular Filt Rate 108 ml/min (>60); GFR (African American) 131 ML/MIN (>60)
[2024-07-24 06:35] LABS: Albumin/Globulin Ratio 1.1 (1.1-1.8); Alkaline Phosphatase 97 U/L (38-126); Calcium 8.3 mg/dl (8.4-10.2); Globulin 3.2 g/dL (1.3-3.2); Glucose 79 mg/dl (74-100); Magnesium 1.9 mg/dl (1.6-2.3); Total Protein,Serum 6.6 g/dl (6.3-8.2)
[2024-07-24 06:42] LABS: Anion Gap 6.7 mEq/L (5-15); Carbon Dioxide 39 mmol/L (22.0-30.0)
--- NOTE | 2024-07-24 07:38 | EXP.ACUTE.PN ---
Subjective *Date: 07/24/24 *Time: 14:56 Interval history: Patient complaining of headache today. Some mild upset stomach. No diarrhea, chills. General body aches, states this is normal for her. Oxygen weaned to 5 L. Pulmonology assisting with care today. Afebrile overnight. Alert and oriented x 4 Medical Exam Vital signs and Labs for Last 24 Hours: Vital Signs Temp Pulse Pulse Resp BP BP BP 07/24/24 06:44 07/24/24 06:00 75 10 L 106/62 L 07/24/24 05:00 07/24/24 04:14 07/24/24 04:00 67 07/24/24 04:00 97.4 F L 84 10 L 98/59 L 07/24/24 03:00 07/24/24 02:00 78 11 L 114/68 07/24/24 01:00 07/24/24 00:00 72 07/24/24 00:00 97.6 F 74 15 101/60 L 07/23/24 23:00 07/23/24 22:00 70 18 92/56 L 07/23/24 21:00 07/23/24 20:22 07/23/24 20:00 78 07/23/24 20:00 98.8 F 75 15 102/63 L 07/23/24 19:09 07/23/24 18:45 07/23/24 18:00 77 12 114/69 07/23/24 17:00 07/23/24 16:17 07/23/24 16:00 76 11 L 110/76 07/23/24 16:00 82 07/23/24 16:00 07/23/24 15:53 98.8 F 07/23/24 15:00 81 12 94/63 L 07/23/24 15:00 07/23/24 14:00 76 11 L 107/71 L 07/23/24 13:30 98.1 F 80 11 L 118/78 07/23/24 13:00 77 12 103/68 L 07/23/24 13:00 07/23/24 12:30 76 12 106/68 L 07/23/24 12:21 14 07/23/24 12:00 82 07/23/24 12:00 82 14 117/76 07/23/24 11:33 99.4 F 88 20 155/78 H 07/23/24 10:21 84 15 155/94 H 07/23/24 10:01 82 17 127/84 07/23/24 09:41 88 18 152/93 H 07/23/24 09:31 88 156/90 H 07/23/24 09:28 07/23/24 09:25 95 H 149/88 H 07/23/24 08:58 88 17 157/71 H 07/23/24 08:40 07/23/24 08:15 88 10 L 111/64 Pulse Ox O2 Del Method O2 Flow Rate FiO2 07/24/24 06:44 Nasal Cannula 5 07/24/24 06:00 90 L Nasal Cannula 5 07/24/24 05:00 Nasal Cannula 5 07/24/24 04:14 91 L Nasal Cannula 5 07/24/24 04:00 07/24/24 04:00 93 L Nasal Cannula 5 07/24/24 03:00 Nasal Cannula 5 07/24/24 02:00 97 Nasal Cannula 5 07/24/24 01:00 Nasal Cannula 5 07/24/24 00:00 07/24/24 00:00 96 Nasal Cannula 5 07/23/24 23:00 Nasal Cannula 5 07/23/24 22:00 94 L Nasal Cannula 5 07/23/24 21:00 Nasal Cannula 5 07/23/24 20:22 94 L Nasal Cannula 5 07/23/24 20:00 07/23/24 20:00 5 L Nasal Cannula 07/23/24 19:09 91 L Nasal Cannula 5 07/23/24 18:45 Nasal Cannula 6 07/23/24 18:00 91 L Nasal Cannula 5 07/23/24 17:00 Nasal Cannula 6 07/23/24 16:17 95 Nasal Cannula 6 07/23/24 16:00 79 L Room Air 07/23/24 16:00 07/23/24 16:00 Nasal Cannula 6 07/23/24 15:53 07/23/24 15:00 99 Nasal Cannula 6 07/23/24 15:00 Nasal Cannula 6 07/23/24 14:00 95 Nasal Cannula 6 07/23/24 13:30 95 Nasal Cannula 6 07/23/24 13:00 95 Nasal Cannula 6 07/23/24 13:00 Nasal Cannula 6 07/23/24 12:30 96 Nasal Cannula 6 07/23/24 12:21 97 Nasal Cannula 6 07/23/24 12:00 07/23/24 12:00 97 Nasal Cannula 6 07/23/24 11:33 Nasal Cannula 6 07/23/24 10:21 97 07/23/24 10:01 95 07/23/24 09:41 94 L Nasal Cannula 07/23/24 09:31 96 Vapotherm 07/23/24 09:28 93 L Nasal Cannula 6 07/23/24 09:25 92 L Vapotherm 07/23/24 08:58 99 Vapotherm 07/23/24 08:40 96 Vapotherm 20 100 07/23/24 08:15 96 Nasal Cannula 6 Intake and Output 07/23/24 07/23/24 07/24/24 15:59 23:59 07:59 Intake Total 1661 / 2196 135 / 2196 400 / 400 Output Total 2300 / 2300 500 / 500 Balance -639 / -104 135 / -104 -100 / -100 Intake: Intake, Oral Amount 135 / 435 300 / 300 Intake, Other Amount 1661 / 1661 Intake, Total IV Amount 100 / 100 Piperacillin/Tazo 4.5 gm In 0.9 100 / 100 % Sodium Chloride 100 ml @ 200 mls/hr IV Q6H [facility] Rx#:[id number] Output: Output, Urine Amount 2300 / 2300 500 / 500 Other: Number of Unmeasured Voids 1 1 Weight 118.444 kg 117.617 kg Patient Weight 07/24/24 23:59 Weight 117.617 kg Laboratory Results - last 24 hr 07/23/24 08:17: VBG pH 7.36, VBG pCO2 66.7 H, VBG pO2 42.1 H, VBG HCO3 37.0 H, VBG Total CO2 39.1 H, VBG O2 Saturation 79.3 H, VBG Base Excess 11.6 H, VBG Lactic Acid 3.1 H 07/23/24 08:31: Urine Color Yellow, Urine Appearance Clear, Urine pH 7.5, Ur Specific [place] 1.015, Urine Protein Negative, Urine Glucose (UA) Negative, Urine Ketones Negative, Urine Blood Negative, Urine Nitrate Negative, Urine Bilirubin Negative, Urine Urobilinogen 2.0, Ur Leukocyte Esterase Negative, Urine Opiates Screen Negative, Urine Methadone Screen Positive H, Ur Barbituates Screen Negative, Ur Phencyclidine Scrn Negative, Ur Amphetamines Screen Negative, U Benzodiazepines Scrn Negative, Urine Cocaine Screen Negative, U Marijuana (THC) Screen Negative 07/23/24 08:48: WBC 11.6 H, RBC 4.04 L, Hgb 12.1 L, Hct 39.1, MCV 96.6, MCH 29.9, MCHC 30.9 L, RDW 13.3, Plt Count 186, MPV 8.2, Neut % (Auto) 85.1 H, Lymph % (Auto) 8.3 L, [place] % (Auto) 6.3, Eos % (Auto) 0.2, Baso % (Auto) 0.1, Neut # (Auto) 9.9 H, Lymph # (Auto) 1.0, [place] # (Auto) 0.7, Eos # (Auto) 0.0, Baso # (Auto) 0.0, Total Counted 100, Neutrophils % (Manual) 82 H, Lymphocytes % (Manual) 8 L, Monocytes % (Manual) 8, Eosinophils % (Manual) 2, Platelet Estimate Slight decrease, RBC Morphology Normal, Hypochromasia 3+, Poikilocytosis 1+, Anisocytosis 1+, Microcytosis 1+, PT 11.4, INR 1.02, APTT 23.6, Sodium 135 L, Potassium 3.4 L, Chloride 96 L, Carbon Dioxide 36 H, Anion Gap 6.4, BUN 19 H, Creatinine 1.10 H, Estimated Creat Clear 56, Estimated GFR 54 L, Est GFR ( Amer) 65, Glucose 100, Calcium 8.6, Total Bilirubin 0.8, AST 330 H*, ALT 234 H, Alkaline Phosphatase 87, Total Creatine Kinase 157 H, Troponin I 0.24 H, NT-Pro-B Natriuret Pep 1290 H, Total Protein 6.6, Albumin 3.6, Globulin 3.0, Albumin/Globulin Ratio 1.2, Triglycerides 36, Cholesterol 126 L, LDL Cholesterol Direct 55.92 L, VLDL Cholesterol 7, HDL Cholesterol 44, Cholesterol/HDL Ratio 2.9, Procalcitonin 0.275, TSH 0.17 L, Thyroxine (T4) 8.5, HCG, Quant < 2, Salicylates < 1.0 L, Acetaminophen < 10 L, Plasma/Serum Alcohol < 10, HIV 1&2 Antibody Rapid Nonreactive 07/23/24 08:50: SARS-CoV-2 (PCR) Not detected, Influenza A Untype (PCR) Not detected, Influenza Type B (PCR) Not detected 07/23/24 11:04: Troponin I 0.30 H 07/23/24 12:55: POC Glucose 89 07/23/24 13:20: Lactate 0.7 07/23/24 17:30: POC Glucose 157 H 07/23/24 20:07: POC Glucose 156 H 07/24/24 05:16: WBC 7.9 D, RBC 4.09 L, Hgb 11.9 L, Hct 40.3, MCV 98.7, MCH 29.2, MCHC 29.6 L, RDW 13.3, Plt Count 166, MPV 8.2, Neut % (Auto) 73.4, Lymph % (Auto) 18.3, [place] % (Auto) 6.5, Eos % (Auto) 1.4, Baso % (Auto) 0.4, Neut # (Auto) 5.8, Lymph # (Auto) 1.4, [place] # (Auto) 0.5, Eos # (Auto) 0.1, Baso # (Auto) 0.0, Sodium 135 L, Potassium 3.7, Chloride 93 L, Carbon Dioxide 39 H, Anion Gap 6.7, BUN 21 H, Creatinine 0.60 D, Estimated Creat Clear 102, Estimated GFR 108, Est GFR ( Amer) 131 D, Glucose 79 D, Calcium 8.3 L, Magnesium 1.9, Total Bilirubin 1.0, AST 295 H, ALT 284 H, Alkaline Phosphatase 97, Total Protein 6.6, Albumin 3.4 L, Globulin 3.2, Albumin/Globulin Ratio 1.1 07/24/24 05:34: POC Glucose 98 I & O for Labs for Last 24 Hours: Intake & Output 07/21/24 07/22/24 07/23/24 07/24/24 23:59 23:59 23:59 23:59 Intake Total 1796 / 2196 400 / 400 Output Total 2300 / 2300 500 / 500 Balance -504 / -104 -100 / -100 Weight 118.444 kg 117.617 kg Microbiology Reports for the Last 24 Hours: Microbiology 07/23/24 17:00 Sputum - Expectorated Sputum Gram Stain - Final Constitutional: Present no acute distress, morbidly obese, chronically ill appearing and cooperative Head: Present atraumatic and normocephalic ENT: Present normal exam Respiratory: Present prolonged expiratory phase, rhonchi, wheezes and normal respiratory effort; Absent crackles Cardiac: Present Reg Rate and Rhythm GI: Present soft and normal bowel sounds; Absent distention or tenderness Extremities: Present normal inspection, full ROM and edema (1+ to knees) Skin: Present intact; Absent erythema Neuro: Present Grossly Intact, alert, awake, oriented x 3 and moves all extremities Assessment and Plan *Assessment and plan (1) Toxic encephalopathy: Status: Acute Category: Medical Code(s): G92.9 - Unspecified toxic encephalopathy (2) Acute hypoxic respiratory failure: Status: Acute Category: Medical Code(s): J96.01 - Acute respiratory failure with hypoxia (3) Pneumonia: Status: Acute Category: Medical Code(s): J18.9 - Pneumonia, unspecified organism (4) Opioid overdose: Status: Acute Category: Medical Code(s): T40.2X1A - Poisoning by other opioids, accidental (unintentional), initial encounter (5) COPD (chronic obstructive pulmonary disease): Status: Acute Qualifiers: COPD type: unspecified COPD Qualified Code(s): J44.9 - Chronic obstructive pulmonary disease, unspecified Category: Medical Code(s): J44.9 - Chronic obstructive pulmonary disease, unspecified (6) HTN (hypertension): Status: Chronic Qualifiers: Hypertension type: unspecified Qualified Code(s): I10 - Essential (primary) hypertension Category: Medical Code(s): I10 - Essential (primary) hypertension (7) Smoking greater than 30 pack years: Status: Chronic Category: Social Hx Code(s): F17.210 - Nicotine dependence, cigarettes, uncomplicated (8) Opioid use disorder, severe, on maintenance therapy: Status: Chronic Category: Medical Code(s): F11.20 - Opioid dependence, uncomplicated (9) Obesity: Status: Chronic Qualifiers: Obesity type: due to excess calories Obesity classification: adult class 3 (BMI >= 40) Serious obesity comorbidity presence: with serious comorbidity Body mass index: BMI 40.0-44.9 Qualified Code(s): E66.01 - Morbid (severe) obesity due to excess calories; Z68.41 - Body mass index [BMI] 40.0-44.9, adult Category: Medical Code(s): E66.9 - Obesity, unspecified Plan 44-year-old female with opiate use disorder on maintenance therapy who presented with altered mental status and hypoxia. On presentation, found to be hypoxic necessitating supplemental oxygen. Responding to Narcan. Imaging showing pneumonia. Discussed case with ER physician, request admission for further management. I agreed to admit for IV antibiotics, weaning of oxygen, monitoring for improvement in respiratory status and clearance of intoxicants. Initiate methadone at lower dose for pain. Monitor for tolerance. Continue to wean oxygen. Continues to require inpatient management. Problems addressed as follows Toxic encephalopathy Opiate use disorder Aspiration pneumonia Acute hypoxemic respiratory failure Polypharmacy -Oxygen today, goal sats greater 90%. Currently on 5 L. Wean as tolerated -Discontinue Zosyn -Discussed case with pulmonology, recommend initiating Advair 250 mg inhaler twice daily, DuoNebs 4 times a day as needed, weaning to Levaquin to complete 5-day course for pneumonia. Initiate 750 mg IV daily. -Discussed patient with her methadone provider at [facility] in [place]. She is currently on 65 mg daily. Was titrated up to this dose. Has been on it for at least the past 5 days. Recommended decreasing dose. Will continue 50 mg for pain control at this time. [facility] will take over management after discharge. -UDS pending to evaluate for synthetic opioids such as fentanyl. Concerned she may have taken some other substance other than what she is prescribed. -UDS on arrival positive only for methadone -Continue gabapentin at reduced dose of 400 mg 3 times a day -White count remains normal at 7.9, kidney function normal with BUN 21, creatinine 0.6. -CBC, CMP, magnesium ordered for the morning. Headache: Fioricet ordered once daily as needed Transaminitis -Unclear etiology, bili 1, AST and ALT 295 and 284 respectively. Right upper quadrant ultrasound pending for the morning. N.p.o. at midnight. Morbid obesity: Complicates all aspects of her care Elevation in troponin Suspected CHF - BNP elevated at 1200. Will administer 640 mg IV x 1. Echo obtained, EF appears preserved. - No chest pain or changes on EKG. no events on telemetry Tobacco use disorder: Nicotine patch 21 mg daily Constipation: No bowel movement for 2 days. Continue docusate senna 1 tablet twice daily Full code: when asked about CODE STATUS, patient said she did not want to be resuscitated/DNR. However given her presentation with encephalopathy from opiate overdose/polypharmacy, Versed given to keep her relaxed for CT, I feel it would be an appropriate at this time to have her sign paperwork for DNR status. Reevaluating today regular diet Lovenox 40 mg SQ twice daily
[2024-07-24] MEDS: GABAPENTIN 400MG CAPSULE 400 MG PO ×3 (08:09→20:10)
[2024-07-24] MEDS: SENNOSIDES 8.6MG/DOCUSATE 50MG TABLET 1 TAB PO ×2 (08:09→20:10)
--- NOTE | 2024-07-24 08:18 | P.CONPHA_ITS ---
Pharmacy Intervention Comments: Home medication list verified using list from pharmacy and contacting [facility] ([place], [place]) for Methadone dose.
--- NOTE | 2024-07-24 08:18 | HMH.PHAINT1 ---
Pharmacy Intervention Comments: Home medication list verified using list from pharmacy and contacting [facility] ([place], [place]) for Methadone dose.
[2024-07-24] MEDS: ONDANSETRON 4MG/2ML VIAL 4 MG IV ×2 (08:37→21:28)
[2024-07-24] MEDS: BUTALB/ACETAMINOPHEN/CAFFEINE 50MG/325MG/40MG TAB 2 EACH PO ×2 (11:04→18:52)
[2024-07-24 11:08] LABS: POC Glucose,Bedside 139 (70-110)
--- NOTE | 2024-07-24 12:06 | EXP.PULM.CON ---
History of Present Illness History of present illness: Ms. Ramírez is a 44-year-old female current smoker greater than [id number] smoking history personal history and family history of asthma using albuterol on as-needed basis, needing it every day was found altered unable to arouse and was admitted to the hospital for further evaluation and management. Concern for medication overdose. Patient admits using heavy inhaler drug use, admits being sober for the last 8 years. [facility] Disclaimer: The information contained in this section may have been updated after the patient was seen, as this information can be updated by other users. Medical History History of snoring Right otitis media Non compliance with medical treatment Smoking greater than 30 pack years Allergic rhinitis Asthma Dyspnea on exertion Hyperlipidemia Sinusitis Otitis externa Bronchitis Upper respiratory infection, viral Muscle spasm Vaginal yeast infection Sinusitis Surgical History History of eye surgery History of hysterectomy History of tubal ligation History of section Family History Other COPD (chronic obstructive pulmonary disease) Diabetes Hypertension Social History Smoking Status: Unknown if ever smoked second hand exposure: No alcohol intake: never substance use type: former substance user current occupational status: other Travel in the last 8 weeks: None housing: house current occupational exposures/hazards: No Review of Systems Constitutional Constitutional: Reports anorexia, Reports body ache(s), Reports fatigue and Reports snoring Eyes Eyes: Denies eye discharge, Denies dry eyes, Denies irritation and Denies itchy eyes ENT Ears, Nose, Mouth, and Throat: Denies epistaxis, Denies facial pain, Denies lip swelling and Denies throat swelling *Cardiovascular Cardiovascular: Reports dyspnea and Reports dyspnea on exertion *Respiratory Respiratory: Denies change in phlegm color, Reports chest congestion, Reports cough, Reports dyspnea, Reports dyspnea on exertion, Denies excessive phlegm production, Reports snoring and Reports wheezing *Gastrointestinal Gastrointestinal: Denies abdominal pain, Denies belching and Denies cramping *Musculoskeletal Musculoskeletal: Reports back pain, Reports myalgias and Reports other (No small joint swelling or Pain) Psychiatric Psychiatric: Denies homicidal ideation and Denies suicidal ideation Endocrine Endocrine: Reports fatigue and Denies heat intolerance Hematologic/Lymphatic Hematologic/Lymphatic: Denies easy bleeding and Denies lymphadenopathy Allergic/Immunologic Allergic/Immunologic: Denies itchy eyes, Denies lip swelling, Denies throat swelling and Reports wheezing Pulmonology Exam Inpatient Vital signs and Labs for Last 24 Hours: Temp Pulse Resp BP Pulse Ox O2 Del Method O2 Flow Rate 98.0 F 70 16 122/74 92 L Nasal Cannula 4 07/24/24 08:38 07/24/24 10:00 07/24/24 10:00 07/24/24 10:00 07/24/24 10:00 07/24/24 11:00 07/24/24 10:00 FiO2 100 07/23/24 08:40 Laboratory Results - last 24 hr 07/23/24 08:48: Total Counted 100, Neutrophils % (Manual) 82 H, Lymphocytes % (Manual) 8 L, Monocytes % (Manual) 8, Eosinophils % (Manual) 2, Platelet Estimate Slight decrease, RBC Morphology Normal, Hypochromasia 3+, Poikilocytosis 1+, Anisocytosis 1+, Microcytosis 1+ 07/23/24 12:55: POC Glucose 89 07/23/24 13:20: Lactate 0.7 07/23/24 17:30: POC Glucose 157 H 07/23/24 20:07: POC Glucose 156 H 07/24/24 05:16: WBC 7.9 D, RBC 4.09 L, Hgb 11.9 L, Hct 40.3, MCV 98.7, MCH 29.2, MCHC 29.6 L, RDW 13.3, Plt Count 166, MPV 8.2, Neut % (Auto) 73.4, Lymph % (Auto) 18.3, [place] % (Auto) 6.5, Eos % (Auto) 1.4, Baso % (Auto) 0.4, Neut # (Auto) 5.8, Lymph # (Auto) 1.4, [place] # (Auto) 0.5, Eos # (Auto) 0.1, Baso # (Auto) 0.0, Sodium 135 L, Potassium 3.7, Chloride 93 L, Carbon Dioxide 39 H, Anion Gap 6.7, BUN 21 H, Creatinine 0.60 D, Estimated Creat Clear 102, Estimated GFR 108, Est GFR ( Amer) 131 D, Glucose 79 D, Calcium 8.3 L, Magnesium 1.9, Total Bilirubin 1.0, AST 295 H, ALT 284 H, Alkaline Phosphatase 97, Total Protein 6.6, Albumin 3.4 L, Globulin 3.2, Albumin/Globulin Ratio 1.1 07/24/24 05:34: POC Glucose 98 07/24/24 10:59: POC Glucose 139 H I & O for Labs for Last 24 Hours: Intake & Output 07/21/24 07/22/24 07/23/24 07/24/24 23:59 23:59 23:59 23:59 Intake Total 1796 / 2196 600 / 600 Output Total 2300 / 2300 500 / 500 Balance -504 / -104 100 / 100 Weight 261 lb 2 oz 259 lb 4.8 oz Microbiology Reports for the Last 24 Hours: Microbiology 07/23/24 08:55 Blood Blood Culture - Preliminary NO GROWTH AFTER 24 HOURS 07/23/24 08:55 Blood Blood Culture - Preliminary NO GROWTH AFTER 24 HOURS 07/23/24 17:00 Sputum - Expectorated Sputum Gram Stain - Final 07/23/24 17:00 Sputum - Expectorated Sputum Sputum Culture - Preliminary Constitutional: Present moderate distress Head: Present normocephalic and atraumatic ENT: Present normal exam, normal oropharynx and mucous membranes moist Neck: Present normal inspection and full ROM Respiratory: Present prolonged expiratory phase, respiratory distress, wheezes and able to speak in complete sentences Cardiac: Present S1/S2, Tachycardia and radial pulses present GI: Present soft and distention; Absent tenderness or guarding Rectal (female): Present deferred (female): Present deferred Skin: Present intact; Absent cyanosis or jaundice Neuro: Present alert, awake and oriented x 3 Extremities: Present normal inspection; Absent clubbing or cyanosis Psychiatric: Present normal affect and cooperative Meds Home Medications and Allergies Home Medications ?Medication ?Instructions ?Recorded ?Confirmed ?Type clonazepam 0.5 mg tablet 0.5 mg PO DAILYP PRN Anxiety 07/23/24 07/23/24 History clonidine HCl 0.1 mg tablet 0.1 mg PO DAILY 07/23/24 07/23/24 History gabapentin 800 mg tablet 800 mg PO TID 07/23/24 07/23/24 History ondansetron HCl 4 mg tablet 4 mg PO TIDP PRN Nausea And 07/23/24 07/23/24 History Vomiting methadone 10 mg/mL oral concentrate 65 mg PO DAILY 07/24/24 07/24/24 History New Prescriptions to Start Prescriptions: Allergies Allergy/AdvReac Type Severity Reaction Status Date / Time ibuprofen Allergy Verified 07/08/23 15:06 prednisone Allergy Verified 07/08/23 15:06 Results Laboratory Findings 07/24/24 05:16 07/24/24 05:16 PT/INR, D-dimer PT 11.4 seconds (10.1-12.5) 07/23/24 08:48 INR 1.02 (0.9-1.1) 07/23/24 08:48 Abnormal lab findings: Abnormal Labs 07/23/24 07/23/24 07/23/24 08:17 08:31 08:48 WBC 11.6 H RBC 4.04 L Hgb 12.1 L MCHC 30.9 L Neut % (Auto) 85.1 H Lymph % (Auto) 8.3 L Neut # (Auto) 9.9 H Neutrophils % (Manual) 82 H Lymphocytes % (Manual) 8 L VBG pCO2 66.7 H VBG pO2 42.1 H VBG HCO3 37.0 H VBG Total CO2 39.1 H VBG O2 Saturation 79.3 H VBG Base Excess 11.6 H VBG Lactic Acid 3.1 H Sodium 135 L Potassium 3.4 L Chloride 96 L Carbon Dioxide 36 H BUN 19 H Creatinine 1.10 H Estimated GFR 54 L POC Glucose Calcium AST 330 H* ALT 234 H Total Creatine Kinase 157 H Troponin I 0.24 H NT-Pro-B Natriuret Pep 1290 H Albumin Cholesterol 126 L LDL Cholesterol Direct 55.92 L TSH 0.17 L Salicylates < 1.0 L Urine Methadone Screen Positive H Acetaminophen < 10 L 07/23/24 07/23/24 07/23/24 11:04 17:30 20:07 WBC RBC Hgb MCHC Neut % (Auto) Lymph % (Auto) Neut # (Auto) Neutrophils % (Manual) Lymphocytes % (Manual) VBG pCO2 VBG pO2 VBG HCO3 VBG Total CO2 VBG O2 Saturation VBG Base Excess VBG Lactic Acid Sodium Potassium Chloride Carbon Dioxide BUN Creatinine Estimated GFR POC Glucose 157 H 156 H Calcium AST ALT Total Creatine Kinase Troponin I 0.30 H NT-Pro-B Natriuret Pep Albumin Cholesterol LDL Cholesterol Direct TSH Salicylates Urine Methadone Screen Acetaminophen 07/24/24 07/24/24 05:16 10:59 WBC RBC 4.09 L Hgb 11.9 L MCHC 29.6 L Neut % (Auto) Lymph % (Auto) Neut # (Auto) Neutrophils % (Manual) Lymphocytes % (Manual) VBG pCO2 VBG pO2 VBG HCO3 VBG Total CO2 VBG O2 Saturation VBG Base Excess VBG Lactic Acid Sodium 135 L Potassium Chloride 93 L Carbon Dioxide 39 H BUN 21 H Creatinine Estimated GFR POC Glucose 139 H Calcium 8.3 L AST 295 H ALT 284 H Total Creatine Kinase Troponin I NT-Pro-B Natriuret Pep Albumin 3.4 L Cholesterol LDL Cholesterol Direct TSH Salicylates Urine Methadone Screen Acetaminophen Assessment and Plan *Assessment and plan (1) Acute hypoxic respiratory failure: Status: Acute Category: Medical Code(s): J96.01 - Acute respiratory failure with hypoxia (2) Pneumonia: Status: Acute Category: Medical Code(s): J18.9 - Pneumonia, unspecified organism Plan Ms. Ramírez is a 44-year-old female current smoker greater than [id number] smoking history personal history and family history of asthma using albuterol on as-needed basis, needing it every day was found altered unable to arouse and was admitted to the hospital for further evaluation and management. Concern for medication overdose. Patient admits using heavy inhaler drug use, admits being sober for the last [address] chest upon admission bilateral lower lobe predominant patchy airspace disease. Venous blood gas upon admission mild hypercarbic respiratory failure pH of 7.36 and pCO2 66.7. Auscultation bilateral diffuse wheezing noted. Initiated on vancomycin and Zosyn, de-escalated to Zosyn today. Sputum cultures moderate gram-positive cocci and gram-negative rods. Blood cultures no growth 24 hours. Improving oxygen requirements and improving leukocytosis since admission. Plan: Initiate Advair 250 inhaler twice daily DuoNebs 4 times daily as needed Antibiotics can be weaned to levofloxacin to complete a total of 5-day course for the concerning pneumonia. # Thank you for involving pulmonary in this patient care. Will continue to follow.
--- NOTE | 2024-07-24 14:17 | CA_ITS ---
APPROVED REPORT EXAM: Comprehensive 2D, Doppler, and color-flow Echocardiogram Vehicle Operator Technician: Sherlyn Madison CRT Ht: 5 ft 3 in Wt: 261lbs BSA: 2.17 BP: 1552/93 mmHg Indications: Abnormal ECG, Chest Pain, Congestive Heart Failure, COPD, Hypertension/HDD, smoker, opiod OD, narcan x 2, AMS 2D Dimensions LA Volume 44.70 mL LA Volume Index 20.10 mL/m2 (M/F) 16-34 M-Mode Dimensions RVDd 3.03 cm (0.9-2.6) LA Diam 3.76 cm (1.9-4.0) LVDd 5.72 cm (3.5-5.7) LVDs 2.92 cm (3.5-5.7) IVSd 1.52 cm (0.6-1.1) PWd 0.72 cm (0.6-1.1) EF (Teich) 79.70% FS 49.00% EDV (Teich) 161.30 mL TAPSE 3.09 (<1.7) ESV (Teich) 32.80 mL LV Diastology E Decel Time 233 (160-240 msec) E/A Ratio 1.44 MED A' 6.60 cm/s LAT A' 9.50 cm/s Aortic Valve AO Peak GR. 11.20 mmHg Mitral Valve MV A Velocity 86.0 (40-130 cm/s) E/A Ratio 1.44 Pulmonary Valve PV Peak Velocity 110.0 (50-150 cm/s) Tricuspid Valve TR P. Velocity 241.00 cm/s RAP Estimate 10.00 mmHg RVSP 33.20 mmHg Left Ventricle The left ventricle is normal size. The left ventricular systolic function is normal. The left ventricular ejection fraction is within the normal range. There is increased LV wall thickness. There is normal LV segmental wall motion. The left ventricular diastolic function is normal. LVEF is 55%. Right Ventricle The right ventricle is normal size. The right ventricular systolic function is normal. Atria The left atrium size is normal. The right atrium size is normal. There is no Doppler evidence of interatrial shunt. Aortic Valve The aortic valve is mildly thickened. There is no aortic valvular stenosis. No aortic regurgitation is present. Mitral Valve The mitral valve is normal in structure. No evidence of mitral valve stenosis. Trace mitral regurgitation. Tricuspid Valve The tricuspid valve leaflets are thin and pliable. Trace tricuspid regurgitation. There is insufficient TR jet to estimate RVSP. Pulmonic Valve The pulmonary valve is normal in structure. Trace pulmonic regurgitation. Great Vessels The aortic root is normal in size. The ascending aorta is not well-visualized. IVC is normal in size and collapses >50% with inspiration. Pericardium There is no pericardial effusion. Other Information Study Quality: Fair Conclusion Normal biventricular systolic function. No significant valvular stenosis or regurgitation. Electronically signed by : Gretchen Molina MD 07/24/2024 11:54:06
[2024-07-24] MEDS: METHADONE 10MG TABLET 50 MG PO (14:49)
[2024-07-24] MEDS: FUROSEMIDE 40MG/4ML VIAL 40 MG IV (14:50)
[2024-07-24] MEDS: LEVOFLOXACIN/D5W 750 MG/150 ML 750 MG/150 ML PIGGYBACK 100 MG IV (15:18)
[2024-07-24] MEDS: NICOTINE 21MG/24HR PATCH 21 MG TD (16:12)
[2024-07-24 17:07] LABS: POC Glucose,Bedside 145 (70-110)
--- NOTE | 2024-07-24 17:57 | PC.NURSE ---
pt is AOx4, currently on 3LNC O2 sat has been in the high 80s - mid 90s, tolerating 3L well, wearing the cannula in her mouth. she has been up to the chair several times and has ambulated in the room earlier in shift, tolerated well. pt has c/o a headache and nausea this shift, treated per DEC. glucose levels have been WDL. pt started back on her methadone per MD. pt has received IV antibiotics this shift. pt still has 2+ BLE edema and rhochi and wheezes in lung bases. family currently at bedside. call light within reach.
[2024-07-24] MEDS: FLUTICASONE/SALMETEROL 250/50MCG DISKUS 1 PUFF IH (18:38)
[2024-07-24] MEDS: ENOXAPARIN 40MG/0.4ML SYRINGE 40 MG SQ (20:10)
--- NOTE | 2024-07-24 21:17 | PC.NURSE ---
Pt got up to shower, tolerated well on room air. Pt did get a little short of breathe once returning to bed, 3L NC applied, pt sat >90%. Pt is comfortable at this time and feeling better after receiving shower.
[2024-07-25] VITALS (12 sets, daily range): BP systolic 130–154; BP diastolic 81–99; PULSE 60–81; RESP 12–20; TEMP 36.6–37.2; O2SAT 90–96; BMI 46.1
[2024-07-25] MEDS: IPRATROPIUM/ALBUTEROL 3 ML NEB IH (03:08)
[2024-07-25] MEDS: BUTALB/ACETAMINOPHEN/CAFFEINE 50MG/325MG/40MG TAB 2 EACH PO ×2 (03:08→16:31)
[2024-07-25] MEDS: KETOROLAC 30MG/ML VIAL 15 MG IV ×3 (03:54→19:04)
--- NOTE | 2024-07-25 06:14 | PC.NURSE ---
Alert and oriented. Took a shower last night. Significant other at bedside throughout the night. Requesting SCDs, Kathy UNDERWOOD stated this was okay. Remains on 3L NC, O2 sat >90%. Lung sounds rhonchi noted. Bilateral edema to lower extremities. NSR on tele. Complained of headache, treated per dec. Complained of nausea 1 time, treated per dec. NPO since midnight. Call light in reach.
[2024-07-25] MEDS: FLUTICASONE/SALMETEROL 250/50MCG DISKUS 1 PUFF IH ×2 (06:23→18:26)
[2024-07-25 06:25] LABS: POC Glucose,Bedside 140 (70-110)
[2024-07-25 06:40] LABS: Basophils % 0.5 % (0.1-2.0); Eosinophils # 0.2 K/mm3 (0.0-0.4); Eosinophils % 2.8 % (0.1-12.0); Hematocrit 39.1 % (37.0-47.0); Lymphocytes # 1.2 K/mm3 (0.7-4.5); Lymphocytes % 21.6 % (10-50); Mean Corpuscular HGB Conc 30.6 g/dL (31.8-35.4); Mean Platelet Volume 8.9 fl (7.4-10.4); Monocytes # 0.5 K/mm3 (0.1-1.0); Monocytes % 8.5 % (1.7-9.3); Neutrophils # 3.8 K/mm3 (1.8-7.8); Neutrophils % 66.6 % (37.0-80.0); Platelet Count 154 K/mm3 (142-424); Red Blood Count 3.99 M/mm3 (4.20-5.40); Red Cell Distribution Width 13.5 % (11.5-17.5); White Blood Count 5.7 K/mm3 (4.8-10.8)
[2024-07-25 06:49] LABS: Chloride 92 mmol/L (98-107)
[2024-07-25 06:50] LABS: Albumin Level 3.6 g/dl (3.5-5.0); Potassium 3.6 mmoL/L (3.5-5.1); Sodium 136 mmol/L (136-145)
[2024-07-25 06:52] LABS: Blood Urea Nitrogen 23 mg/dl (7-17); Creatinine Clearance Estimated 88 mL/min (50-200); Estimated Glomerular Filt Rate 90 ml/min (>60); GFR (African American) 109 ML/MIN (>60)
[2024-07-25 06:53] LABS: Alanine Aminotransferase 259 U/L (12-78); Albumin/Globulin Ratio 1.2 (1.1-1.8); Alkaline Phosphatase 86 U/L (38-126); Aspartate Amino Transferase 167 U/L (14-36); Bilirubin,Total 0.6 mg/dl (0.2-1.3); Globulin 3.1 g/dL (1.3-3.2); Glucose 121 mg/dl (74-100); Magnesium 1.9 mg/dl (1.6-2.3); Total Protein,Serum 6.7 g/dl (6.3-8.2)
[2024-07-25 06:59] LABS: Anion Gap 9.6 mEq/L (5-15); Carbon Dioxide 38 mmol/L (22.0-30.0)
--- NOTE | 2024-07-25 07:00 | US_ITS ---
FINAL REPORT CLINICAL HISTORY: elevated liver enzymes FINDINGS: RIGHT UPPER QUADRANT ULTRASOUND Sonographic images of the right upper quadrant were obtained. The pancreas is partially obscured. There is fatty infiltration of the liver. There is trace sludge in the gallbladder. The gallbladder wall is mildly thickened and incompletely distended. The common duct is normal measuring 4 mm. Limited images of the right kidney are normal. IMPRESSION: Trace gallbladder sludge. Reviewed, Interpreted and Dictated by Jose Shelley MD Transcribed by Miranda Childs Authenticated and . [facility]
[2024-07-25] MEDS: SENNOSIDES 8.6MG/DOCUSATE 50MG TABLET 1 TAB PO ×2 (09:19→19:56)
[2024-07-25] MEDS: GABAPENTIN 400MG CAPSULE 400 MG PO ×3 (09:19→19:56)
[2024-07-25] MEDS: ENOXAPARIN 40MG/0.4ML SYRINGE 40 MG SQ ×2 (09:19→19:56)
--- NOTE | 2024-07-25 09:46 | EXP.PULM.PN ---
Subjective *Date: 07/25/24 *Time: 12:35 Interval history: No acute respiratory vents overnight. Patient admits improving respiratory distress. Pulmonology Exam Inpatient Vital signs and Labs for Last 24 Hours: Temp Pulse Resp BP Pulse Ox O2 Del Method O2 Flow Rate 97.9 F 80 12 140/84 92 L Nasal Cannula 2 07/25/24 08:00 07/25/24 08:00 07/25/24 06:00 07/25/24 06:00 07/25/24 06:23 07/25/24 08:00 07/25/24 08:00 FiO2 100 07/23/24 08:40 Laboratory Results - last 24 hr 07/24/24 10:59: POC Glucose 139 H 07/24/24 16:58: POC Glucose 145 H 07/25/24 05:44: WBC 5.7 D, RBC 3.99 L, Hgb 12.0 L, Hct 39.1, MCV 98.0, MCH 30.0, MCHC 30.6 L, RDW 13.5, Plt Count 154, MPV 8.9, Neut % (Auto) 66.6, Lymph % (Auto) 21.6, [place] % (Auto) 8.5, Eos % (Auto) 2.8, Baso % (Auto) 0.5, Neut # (Auto) 3.8, Lymph # (Auto) 1.2, [place] # (Auto) 0.5, Eos # (Auto) 0.2, Baso # (Auto) 0.0, Sodium 136, Potassium 3.6, Chloride 92 L, Carbon Dioxide 38 H, Anion Gap 9.6, BUN 23 H, Creatinine 0.70, Estimated Creat Clear 88, Estimated GFR 90, Est GFR ( Amer) 109, Glucose 121 H, Calcium 9.0, Magnesium 1.9, Total Bilirubin 0.6, AST 167 H D, ALT 259 H, Alkaline Phosphatase 86, Total Protein 6.7, Albumin 3.6, Globulin 3.1, Albumin/Globulin Ratio 1.2 07/25/24 06:17: POC Glucose 140 H Temp Pulse Resp BP Pulse Ox O2 Del Method O2 Flow Rate 98.0 F 70 16 122/74 92 L Nasal Cannula 4 07/24/24 08:38 07/24/24 10:00 07/24/24 10:00 07/24/24 10:00 07/24/24 10:00 07/24/24 11:00 07/24/24 10:00 FiO2 100 07/23/24 08:40 Laboratory Results - last 24 hr 07/23/24 08:48: Total Counted 100, Neutrophils % (Manual) 82 H, Lymphocytes % (Manual) 8 L, Monocytes % (Manual) 8, Eosinophils % (Manual) 2, Platelet Estimate Slight decrease, RBC Morphology Normal, Hypochromasia 3+, Poikilocytosis 1+, Anisocytosis 1+, Microcytosis 1+ 07/23/24 12:55: POC Glucose 89 07/23/24 13:20: Lactate 0.7 07/23/24 17:30: POC Glucose 157 H 07/23/24 20:07: POC Glucose 156 H 07/24/24 05:16: WBC 7.9 D, RBC 4.09 L, Hgb 11.9 L, Hct 40.3, MCV 98.7, MCH 29.2, MCHC 29.6 L, RDW 13.3, Plt Count 166, MPV 8.2, Neut % (Auto) 73.4, Lymph % (Auto) 18.3, [place] % (Auto) 6.5, Eos % (Auto) 1.4, Baso % (Auto) 0.4, Neut # (Auto) 5.8, Lymph # (Auto) 1.4, [place] # (Auto) 0.5, Eos # (Auto) 0.1, Baso # (Auto) 0.0, Sodium 135 L, Potassium 3.7, Chloride 93 L, Carbon Dioxide 39 H, Anion Gap 6.7, BUN 21 H, Creatinine 0.60 D, Estimated Creat Clear 102, Estimated GFR 108, Est GFR ( Amer) 131 D, Glucose 79 D, Calcium 8.3 L, Magnesium 1.9, Total Bilirubin 1.0, AST 295 H, ALT 284 H, Alkaline Phosphatase 97, Total Protein 6.6, Albumin 3.4 L, Globulin 3.2, Albumin/Globulin Ratio 1.1 07/24/24 05:34: POC Glucose 98 07/24/24 10:59: POC Glucose 139 H I & O for Labs for Last 24 Hours: Intake & Output 07/22/24 07/23/24 07/24/24 07/25/24 23:59 23:59 23:59 23:59 Intake Total 1796 / 2196 1690 / 1690 Output Total 2300 / 2300 1600 / 1600 200 / 200 Balance -504 / -104 90 / 90 -200 / -200 Weight 261 lb 2 oz 259 lb 4.8 oz 270 lb 4.8 oz Intake & Output 07/21/24 07/22/24 07/23/24 07/24/24 23:59 23:59 23:59 23:59 Intake Total 1796 / 2196 600 / 600 Output Total 2300 / 2300 500 / 500 Balance -504 / -104 100 / 100 Weight 261 lb 2 oz 259 lb 4.8 oz Microbiology Reports for the Last 24 Hours: Microbiology 07/23/24 08:55 Blood Blood Culture - Preliminary NO GROWTH AFTER 48 HOURS 07/23/24 08:55 Blood Blood Culture - Preliminary NO GROWTH AFTER 48 HOURS 07/23/24 17:00 Sputum - Expectorated Sputum Gram Stain - Final 07/23/24 17:00 Sputum - Expectorated Sputum Sputum Culture - Preliminary Microbiology 07/23/24 08:55 Blood Blood Culture - Preliminary NO GROWTH AFTER 24 HOURS 07/23/24 08:55 Blood Blood Culture - Preliminary NO GROWTH AFTER 24 HOURS 07/23/24 17:00 Sputum - Expectorated Sputum Gram Stain - Final 07/23/24 17:00 Sputum - Expectorated Sputum Sputum Culture - Preliminary Constitutional: Present moderate distress Head: Present normocephalic and atraumatic ENT: Present normal exam, normal oropharynx and mucous membranes moist Neck: Present normal inspection and full ROM Respiratory: Present prolonged expiratory phase, respiratory distress, wheezes and able to speak in complete sentences Cardiac: Present S1/S2, Tachycardia and radial pulses present GI: Present soft and distention; Absent tenderness or guarding Rectal (female): Present deferred (female): Present deferred Skin: Present intact; Absent cyanosis or jaundice Neuro: Present alert, awake and oriented x 3 Extremities: Present normal inspection; Absent clubbing or cyanosis Psychiatric: Present normal affect and cooperative Assessment and Plan *Assessment and plan (1) Acute hypoxic respiratory failure: Status: Acute Category: Medical Code(s): J96.01 - Acute respiratory failure with hypoxia (2) Pneumonia: Status: Acute Category: Medical Code(s): J18.9 - Pneumonia, unspecified organism Plan Ms. Ramírez is a 44-year-old female current smoker greater than [id number] smoking history personal history and family history of asthma using albuterol on as-needed basis, needing it every day was found altered unable to arouse and was admitted to the hospital for further evaluation and management. Concern for medication overdose. Patient admits using heavy inhaler drug use, admits being sober for the last [address] chest upon admission bilateral lower lobe predominant patchy airspace disease. Venous blood gas upon admission mild hypercarbic respiratory failure pH of 7.36 and pCO2 66.7. Auscultation bilateral diffuse wheezing noted. Initiated on vancomycin and Zosyn, de-escalated to Zosyn today. Sputum cultures moderate gram-positive cocci and gram-negative rods. Blood cultures no growth 24 hours. Improving oxygen requirements and improving leukocytosis since admission. Interval update: No acute respiratory vents overnight. Improving leukocytosis. Antibiotics weaned to levofloxacin. Receiving Advair 250 daily. On 2 L saturating 99% this morning. Weaned to room air. Will continue to monitor. Plan: Oxygen supplementation as needed to maintain O2 saturation goal of 90% recommend 6-minute walk testing prior to discharge Continue Advair 250 inhaler twice daily DuoNebs 4 times daily as needed Continue levofloxacin to complete a total of 5-day course for the concerning pneumonia. # Thank you for involving pulmonary in this patient care. Will continue to follow.
--- NOTE | 2024-07-25 09:47 | XR_ITS ---
FINAL REPORT CLINICAL HISTORY: Hypoxia COMPARISON: 07/23/2024 FINDINGS: The heart is mildly enlarged. The mediastinum is normal. The lungs are underinflated. Bibasilar atelectasis is noted. There are no pleural effusions. There is no pneumothorax. There is no osseous abnormality. IMPRESSION: Bibasilar atelectasis. Reviewed, Interpreted and Dictated by Jose Shelley MD Transcribed by Linda Chua Authenticated and [facility]
[2024-07-25 12:35] LABS: POC Glucose,Bedside 141 (70-110)
[2024-07-25] MEDS: METHYLPREDNISOLONE SOD SUCC 40MG VIAL 40 MG IV (13:43)
--- NOTE | 2024-07-25 15:01 | EXP.PN ---
Subjective *Date: 07/25/24 *Time: 15:01 Exam Data for Last 24 hours Vital signs and Labs for Last 24 Hours: Temp Pulse Resp BP Pulse Ox O2 Del Method O2 Flow Rate 99.0 F 78 20 154/94 H 92 L Room Air 3 07/25/24 12:00 07/25/24 10:00 07/25/24 10:00 07/25/24 10:00 07/25/24 10:00 07/25/24 13:00 07/25/24 10:00 FiO2 100 07/23/24 08:40 Laboratory Results - last 24 hr 07/24/24 16:58: POC Glucose 145 H 07/25/24 05:44: WBC 5.7 D, RBC 3.99 L, Hgb 12.0 L, Hct 39.1, MCV 98.0, MCH 30.0, MCHC 30.6 L, RDW 13.5, Plt Count 154, MPV 8.9, Neut % (Auto) 66.6, Lymph % (Auto) 21.6, [place] % (Auto) 8.5, Eos % (Auto) 2.8, Baso % (Auto) 0.5, Neut # (Auto) 3.8, Lymph # (Auto) 1.2, [place] # (Auto) 0.5, Eos # (Auto) 0.2, Baso # (Auto) 0.0, Sodium 136, Potassium 3.6, Chloride 92 L, Carbon Dioxide 38 H, Anion Gap 9.6, BUN 23 H, Creatinine 0.70, Estimated Creat Clear 88, Estimated GFR 90, Est GFR ( Amer) 109, Glucose 121 H, Calcium 9.0, Magnesium 1.9, Total Bilirubin 0.6, AST 167 H D, ALT 259 H, Alkaline Phosphatase 86, Total Protein 6.7, Albumin 3.6, Globulin 3.1, Albumin/Globulin Ratio 1.2 07/25/24 06:17: POC Glucose 140 H 07/25/24 12:26: POC Glucose 141 H I & O for Last 24 hours: Intake & Output 07/22/24 07/23/24 07/24/24 07/25/24 23:59 23:59 23:59 23:59 Intake Total 1796 / 2196 1690 / 1690 600 / 600 Output Total 2300 / 2300 1600 / 1600 200 / 200 Balance -504 / -104 90 / 90 400 / 400 Weight 118.444 kg 117.617 kg 122.606 kg Microbiology Reports for the Last 24 Hours: Microbiology 07/23/24 17:00 Sputum - Expectorated Sputum Gram Stain - Final 07/23/24 17:00 Sputum - Expectorated Sputum Sputum Culture - Preliminary 07/23/24 08:55 Blood Blood Culture - Preliminary NO GROWTH AFTER 48 HOURS 07/23/24 08:55 Blood Blood Culture - Preliminary NO GROWTH AFTER 48 HOURS Assessment and Plan *Assessment and plan (1) Toxic encephalopathy: Status: Acute Category: Medical Code(s): G92.9 - Unspecified toxic encephalopathy (2) Acute hypoxic respiratory failure: Status: Acute Category: Medical Code(s): J96.01 - Acute respiratory failure with hypoxia (3) Pneumonia: Status: Acute Category: Medical Code(s): J18.9 - Pneumonia, unspecified organism (4) Opioid overdose: Status: Acute Category: Medical Code(s): T40.2X1A - Poisoning by other opioids, accidental (unintentional), initial encounter (5) COPD (chronic obstructive pulmonary disease): Status: Acute Qualifiers: COPD type: unspecified COPD Qualified Code(s): J44.9 - Chronic obstructive pulmonary disease, unspecified Category: Medical Code(s): J44.9 - Chronic obstructive pulmonary disease, unspecified (6) HTN (hypertension): Status: Chronic Qualifiers: Hypertension type: unspecified Qualified Code(s): I10 - Essential (primary) hypertension Category: Medical Code(s): I10 - Essential (primary) hypertension (7) Smoking greater than 30 pack years: Status: Chronic Category: Social Hx Code(s): F17.210 - Nicotine dependence, cigarettes, uncomplicated (8) Opioid use disorder, severe, on maintenance therapy: Status: Chronic Category: Medical Code(s): F11.20 - Opioid dependence, uncomplicated (9) Obesity: Status: Chronic Qualifiers: Obesity type: due to excess calories Obesity classification: adult class 3 (BMI >= 40) Serious obesity comorbidity presence: with serious comorbidity Body mass index: BMI 40.0-44.9 Qualified Code(s): E66.01 - Morbid (severe) obesity due to excess calories; Z68.41 - Body mass index [BMI] 40.0-44.9, adult Category: Medical Code(s): E66.9 - Obesity, unspecified Plan 44-year-old female with opiate use disorder on maintenance therapy who presented with altered mental status and hypoxia. On presentation, found to be hypoxic necessitating supplemental oxygen. Responding to Narcan. Imaging showing pneumonia. Discussed case with ER physician, request admission for further management. I agreed to admit for IV antibiotics, weaning of oxygen, monitoring for improvement in respiratory status and clearance of intoxicants. Initiate methadone at lower dose for pain. Monitor for tolerance. Continue to wean oxygen. Continues to require inpatient management. Problems addressed as follows Toxic encephalopathy, resolved Opiate use disorder Aspiration pneumonia Acute hypoxic respiratory failure Polypharmacy Suspected COPD exacerbation ? Patient mentating well, alert and oriented. Conversational, responding to all questions appropriately. ? Patient continues to desaturate with 2 to 3 L nasal cannula, significant rhonchi and moderate wheezing on bilateral lung solitario. ? IV Solu-Medrol 40 mg daily started. Patient reportedly has hives from prednisone. CTA chest on admission did not reveal pulmonary embolism. -Discussed case with pulmonology, continue Advair 250 mg inhaler twice daily, DuoNebs 4 times a day as needed, Levaquin to complete 5-day course for pneumonia. -Discussed patient with her methadone provider at [facility] in [place]. She is currently on 65 mg daily. Was titrated up to this dose. Has been on it for at least the past 5 days. Recommended decreasing dose. Will continue 50 mg for pain control at this time. [facility] will take over management after discharge. -UDS pending to evaluate for synthetic opioids such as fentanyl. Concerned she may have taken some other substance other than what she is prescribed. -UDS on arrival positive only for methadone -Continue gabapentin at reduced dose of 400 mg 3 times a day -White count remains normal at 7.9, kidney function normal with BUN 21, creatinine 0.6. -CBC, CMP, magnesium ordered for the morning. Headache: Fioricet ordered once daily as needed Transaminitis -Unclear etiology, bili 1, AST and ALT 295 and 284 respectively. Right upper quadrant ultrasound showed trace gallbladder sludge. ? Ordered hepatitis panel. ? Continue to monitor. Morbid obesity: Complicates all aspects of her care Elevation in troponin Suspected CHF - BNP elevated at 1200. Echo obtained, EF appears preserved. ? Patient does have trace lower extremity pitting edema but not significant. ? Consider starting diuresis if there are signs of fluid overload. - No chest pain or changes on EKG. no events on telemetry Tobacco use disorder: Nicotine patch 21 mg daily Constipation: No bowel movement for 2 days. Continue docusate senna 1 tablet twice daily Full code: when asked about CODE STATUS, patient said she did not want to be resuscitated/DNR. However given her presentation with encephalopathy from opiate overdose/polypharmacy, Versed given to keep her relaxed for CT, I feel it would be an appropriate at this time to have her sign paperwork for DNR status. Reevaluating today regular diet Lovenox 40 mg SQ twice daily
[2024-07-25] MEDS: LEVOFLOXACIN/D5W 750 MG/150 ML 750 MG/150 ML PIGGYBACK 100 MG IV (15:17)
[2024-07-25] MEDS: METHADONE 10MG TABLET 50 MG PO (15:17)
[2024-07-25 16:12] LABS: Troponin I 0.02 ng/ml (0.00-0.034)
[2024-07-25 17:22] LABS: POC Glucose,Bedside 198 (70-110)
--- NOTE | 2024-07-25 19:16 | PC.NURSE ---
A&OX4. TOLERATING RA WELL WITH O2 SAT REMAINING AROUND 90%. AMBULATING IN HALLWAY. HAS C/O HEADACHE, TREATED PER MAR. EFFECTIVENESS NOTED. HAS HAD NO OTHER NEEDS OR C/O NOTED THUS FAR. VSS.
[2024-07-25] MEDS: NICOTINE 21MG/24HR PATCH 21 MG TD (19:37)
[2024-07-25] MEDS: ACETAMINOPHEN 325MG TAB 650 MG PO (19:55)
[2024-07-26] VITALS: BP 137/84; PULSE 80; RESP 16; TEMP 36.9; O2SAT 90
[2024-07-26] MEDS: ACETAMINOPHEN 325MG TAB 650 MG PO ×2 (02:02→11:04)
[2024-07-26] MEDS: ONDANSETRON 4MG/2ML VIAL 4 MG IV ×2 (02:04→11:03)
[2024-07-26 04:00] VITALS: BP 127/87; PULSE 60; PULSE 68; RESP 16; TEMP 36.8; O2SAT 91; BMI 48.0
[2024-07-26] MEDS: BUTALB/ACETAMINOPHEN/CAFFEINE 50MG/325MG/40MG TAB 2 EACH PO (06:42)
[2024-07-26] MEDS: IPRATROPIUM/ALBUTEROL 3 ML NEB IH (07:13)
[2024-07-26] MEDS: FLUTICASONE/SALMETEROL 250/50MCG DISKUS 1 PUFF IH (07:13)
[2024-07-26 08:00] VITALS: BP 120/73; PULSE 79; RESP 18; TEMP 36.4; O2SAT 96
[2024-07-26 08:26] LABS: Chloride 94 mmol/L (98-107)
[2024-07-26 08:27] LABS: Albumin Level 3.8 g/dl (3.5-5.0); Potassium 3.9 mmoL/L (3.5-5.1); Sodium 139 mmol/L (136-145)
[2024-07-26 08:29] LABS: Blood Urea Nitrogen 20 mg/dl (7-17); Creatinine Clearance Estimated 77 mL/min (50-200); Estimated Glomerular Filt Rate 78 ml/min (>60); GFR (African American) 94 ML/MIN (>60)
[2024-07-26 08:30] LABS: Alanine Aminotransferase 202 U/L (12-78); Albumin/Globulin Ratio 1.2 (1.1-1.8); Alkaline Phosphatase 88 U/L (38-126); Aspartate Amino Transferase 74 U/L (14-36); Bilirubin,Total 0.5 mg/dl (0.2-1.3); Calcium 9.6 mg/dl (8.4-10.2); Globulin 3.2 g/dL (1.3-3.2); Glucose 155 mg/dl (74-100)
[2024-07-26 08:31] LABS: Basophils % 0.3 % (0.1-2.0); Eosinophils % 0.5 % (0.1-12.0); Hematocrit 39.3 % (37.0-47.0); Hemoglobin 12.1 g/dL (12.2-16.2); Lymphocytes # 1.6 K/mm3 (0.7-4.5); Lymphocytes % 23.8 % (10-50); Mean Corpuscular HGB Conc 30.8 g/dL (31.8-35.4); Mean Corpuscular Hemoglobin 30.1 pg (27.0-31.2); Mean Corpuscular Volume 97.8 fl (81-99); Mean Platelet Volume 9.6 fl (7.4-10.4); Monocytes # 0.4 K/mm3 (0.1-1.0); Monocytes % 6.3 % (1.7-9.3); Neutrophils # 4.7 K/mm3 (1.8-7.8); Neutrophils % 69.2 % (37.0-80.0); Platelet Count 187 K/mm3 (142-424); Red Blood Count 4.02 M/mm3 (4.20-5.40); Red Cell Distribution Width 13.6 % (11.5-17.5); White Blood Count 6.9 K/mm3 (4.8-10.8)
[2024-07-26] MEDS: METHYLPREDNISOLONE SOD SUCC 40MG VIAL 40 MG IV (08:32)
[2024-07-26] MEDS: GABAPENTIN 400MG CAPSULE 400 MG PO ×2 (08:32→12:13)
[2024-07-26] MEDS: ENOXAPARIN 40MG/0.4ML SYRINGE 40 MG SQ (08:32)
[2024-07-26] MEDS: SENNOSIDES 8.6MG/DOCUSATE 50MG TABLET 1 TAB PO (08:32)
[2024-07-26 08:33] VITALS: PULSE 80
[2024-07-26 08:35] LABS: Anion Gap 8.9 mEq/L (5-15)
[2024-07-26 08:36] LABS: Carbon Dioxide 40 mmol/L (22.0-30.0)
[2024-07-26] MEDS: KETOROLAC 30MG/ML VIAL 15 MG IV (08:38)
--- NOTE | 2024-07-26 09:40 | EXP.PULM.PN ---
Subjective *Date: 07/26/24 *Time: 10:55 Interval history: No acute respiratory vents overnight. Patient denies any new respiratory complaints. Pulmonology Exam Inpatient Vital signs and Labs for Last 24 Hours: Temp Pulse Resp BP Pulse Ox O2 Del Method O2 Flow Rate 97.6 F 79 18 120/73 96 Room Air 3 07/26/24 08:00 07/26/24 08:00 07/26/24 08:00 07/26/24 08:00 07/26/24 08:00 07/26/24 09:00 07/25/24 10:00 FiO2 100 07/23/24 08:40 Laboratory Results - last 24 hr 07/25/24 12:26: POC Glucose 141 H 07/25/24 15:37: Troponin I 0.02 07/25/24 17:14: POC Glucose 198 H 07/26/24 08:10: WBC 6.9, RBC 4.02 L, Hgb 12.1 L, Hct 39.3, MCV 97.8, MCH 30.1, MCHC 30.8 L, RDW 13.6, Plt Count 187, MPV 9.6, Neut % (Auto) 69.2, Lymph % (Auto) 23.8, [place] % (Auto) 6.3, Eos % (Auto) 0.5, Baso % (Auto) 0.3, Neut # (Auto) 4.7, Lymph # (Auto) 1.6, [place] # (Auto) 0.4, Eos # (Auto) 0.0, Baso # (Auto) 0.0, Sodium 139, Potassium 3.9, Chloride 94 L, Carbon Dioxide 40 H, Anion Gap 8.9, BUN 20 H, Creatinine 0.80, Estimated Creat Clear 77, Estimated GFR 78, Est GFR ( Amer) 94, Glucose 155 H, Calcium 9.6, Total Bilirubin 0.5, AST 74 H D, ALT 202 H, Alkaline Phosphatase 88, Total Protein 7.0, Albumin 3.8, Globulin 3.2, Albumin/Globulin Ratio 1.2 Temp Pulse Resp BP Pulse Ox O2 Del Method O2 Flow Rate 98.0 F 70 16 122/74 92 L Nasal Cannula 4 07/24/24 08:38 07/24/24 10:00 07/24/24 10:00 07/24/24 10:00 07/24/24 10:00 07/24/24 11:00 07/24/24 10:00 FiO2 100 07/23/24 08:40 Laboratory Results - last 24 hr 07/23/24 08:48: Total Counted 100, Neutrophils % (Manual) 82 H, Lymphocytes % (Manual) 8 L, Monocytes % (Manual) 8, Eosinophils % (Manual) 2, Platelet Estimate Slight decrease, RBC Morphology Normal, Hypochromasia 3+, Poikilocytosis 1+, Anisocytosis 1+, Microcytosis 1+ 07/23/24 12:55: POC Glucose 89 07/23/24 13:20: Lactate 0.7 07/23/24 17:30: POC Glucose 157 H 07/23/24 20:07: POC Glucose 156 H 07/24/24 05:16: WBC 7.9 D, RBC 4.09 L, Hgb 11.9 L, Hct 40.3, MCV 98.7, MCH 29.2, MCHC 29.6 L, RDW 13.3, Plt Count 166, MPV 8.2, Neut % (Auto) 73.4, Lymph % (Auto) 18.3, [place] % (Auto) 6.5, Eos % (Auto) 1.4, Baso % (Auto) 0.4, Neut # (Auto) 5.8, Lymph # (Auto) 1.4, [place] # (Auto) 0.5, Eos # (Auto) 0.1, Baso # (Auto) 0.0, Sodium 135 L, Potassium 3.7, Chloride 93 L, Carbon Dioxide 39 H, Anion Gap 6.7, BUN 21 H, Creatinine 0.60 D, Estimated Creat Clear 102, Estimated GFR 108, Est GFR ( Amer) 131 D, Glucose 79 D, Calcium 8.3 L, Magnesium 1.9, Total Bilirubin 1.0, AST 295 H, ALT 284 H, Alkaline Phosphatase 97, Total Protein 6.6, Albumin 3.4 L, Globulin 3.2, Albumin/Globulin Ratio 1.1 07/24/24 05:34: POC Glucose 98 07/24/24 10:59: POC Glucose 139 H I & O for Labs for Last 24 Hours: Intake & Output 07/23/24 07/24/24 07/25/24 07/26/24 23:59 23:59 23:59 23:59 Intake Total 1796 / 2196 1690 / 1690 840 / 1200 900 / 900 Output Total 2300 / 2300 1600 / 1600 200 / 200 0 / 0 Balance -504 / -104 90 / 90 640 / 1000 900 / 900 Weight 261 lb 2 oz 259 lb 4.8 oz 270 lb 4.587 oz 281 lb 8 oz Intake & Output 07/21/24 07/22/24 07/23/24 07/24/24 23:59 23:59 23:59 23:59 Intake Total 1796 / 2196 600 / 600 Output Total 2300 / 2300 500 / 500 Balance -504 / -104 100 / 100 Weight 261 lb 2 oz 259 lb 4.8 oz Microbiology Reports for the Last 24 Hours: Microbiology 07/23/24 17:00 Sputum - Expectorated Sputum Gram Stain - Final 07/23/24 17:00 Sputum - Expectorated Sputum Sputum Culture - Preliminary 07/23/24 08:55 Blood Blood Culture - Preliminary NO GROWTH AFTER 48 HOURS 07/23/24 08:55 Blood Blood Culture - Preliminary NO GROWTH AFTER 48 HOURS Microbiology 07/23/24 08:55 Blood Blood Culture - Preliminary NO GROWTH AFTER 24 HOURS 07/23/24 08:55 Blood Blood Culture - Preliminary NO GROWTH AFTER 24 HOURS 07/23/24 17:00 Sputum - Expectorated Sputum Gram Stain - Final 07/23/24 17:00 Sputum - Expectorated Sputum Sputum Culture - Preliminary Constitutional: Present moderate distress Head: Present normocephalic and atraumatic ENT: Present normal exam, normal oropharynx and mucous membranes moist Neck: Present normal inspection and full ROM Respiratory: Present normal respiratory effort and able to speak in complete sentences; Absent prolonged expiratory phase or respiratory distress Cardiac: Present S1/S2, Tachycardia and radial pulses present GI: Present soft and distention; Absent tenderness or guarding Rectal (female): Present deferred (female): Present deferred Skin: Present intact; Absent cyanosis or jaundice Neuro: Present alert, awake and oriented x 3 Extremities: Present normal inspection; Absent clubbing or cyanosis Psychiatric: Present normal affect and cooperative Assessment and Plan *Assessment and plan (1) Acute hypoxic respiratory failure: Status: Acute Category: Medical Code(s): J96.01 - Acute respiratory failure with hypoxia (2) Pneumonia: Status: Acute Category: Medical Code(s): J18.9 - Pneumonia, unspecified organism Plan Ms. Ramírez is a 44-year-old female current smoker greater than [id number] smoking history personal history and family history of asthma using albuterol on as-needed basis, needing it every day was found altered unable to arouse and was admitted to the hospital for further evaluation and management. Concern for medication overdose. Patient admits using heavy inhaler drug use, admits being sober for the last [address] chest upon admission bilateral lower lobe predominant patchy airspace disease. Venous blood gas upon admission mild hypercarbic respiratory failure pH of 7.36 and pCO2 66.7. Auscultation bilateral diffuse wheezing noted. Initiated on vancomycin and Zosyn, de-escalated to Zosyn today. Sputum cultures moderate gram-positive cocci and gram-negative rods. Blood cultures no growth 24 hours. Improving oxygen requirements and improving leukocytosis since admission. Interval update: No acute respiratory vents overnight. Improving leukocytosis. Continue to receive levofloxacin and Advair 250 daily. Patient admits continued improvement in her respiratory symptoms. Improving rhonchi on auscultation. Plan: Oxygen supplementation as needed to maintain O2 saturation goal of 90% and above. Continue to remain on room air. Recommend 6-minute walk testing prior to discharge Continue Advair 250 inhaler twice daily DuoNebs QID times daily as needed Continue levofloxacin to complete a total of 5-day course for the concerning pneumonia. # Thank you for involving pulmonary in this patient care. Will follow the patient in pulmonary clinic 2 to 3 weeks post discharge. Patient can be discharged home on oxygen supplementation if noted to have exertional desaturations.
--- NOTE | 2024-07-26 11:06 | PC.NURSE ---
WALK TEST PERFORMED. PATIENT TOLERATED WELL. OXYGEN SATURATION POST WALK TEST IS 91-93% ON ROOM AIR.
[2024-07-26] MEDS: BISACODYL 5MG TABLET 10 MG PO (11:21)
[2024-07-26] MEDS: POLYETHYLENE GLYCOL 3350 17 GM PACKET PO (11:21)
[2024-07-26 12:00] VITALS: BP 123/75; PULSE 77; PULSE 785; RESP 19; TEMP 36.3; O2SAT 95
--- NOTE | 2024-07-26 12:32 | EXP.DC.SUM ---
General Admission date:: 07/23/24 HPI HPI HPI: Ms. Ramírez is a 44-year-old female with history of opiate addiction, on maintenance therapy, morbid obesity, COPD, tobacco use disorder. Presented to the ER because of altered mental status. EMS picked the patient up at home because family could not awaken her. Recently switched from Suboxone to methadone. Report from the ER was that she switched yesterday, report from patient after arriving to the floor after admission was that she switched 2 weeks ago. She has been sleepier than normal according to family. Patient was unresponsive and family not able to awaken her. Family administered 4 mg intranasal Narcan with some response. EMS provided an additional dose as patient remained altered and had low respiratory rate. Placed on supplemental oxygen due to sats reportedly in the 70s. On arrival to the ER, patient continues to be somewhat altered necessitating 6 L oxygen to maintain sats above 90%. Workup in the ER with chest imaging showing pneumonia concerning for aspiration, elevated CO2 with normal pH on VBG, and GCS of 13. Medicine consulted for admission and further management. Upon arrival to the floor, patient able to answer questions but dozes off. Respiratory rate 10-12. Maintaining sats mid to high 90s on 6 L. Does not recall coming to the hospital or why she came to the hospital. Does report however that she switched from Suboxone to methadone 2 weeks ago, on 65 mg daily. Also on gabapentin 800 mg 3 times a day. Occasionally will take Klonopin though has not taken it in 2 months per her report (prescribed a weeks worth 2 weeks ago per med rec). Admits to taking gabapentin illicitly prior to being prescribed her current regimen. Also was taking more of her Suboxone then prescribed prior to switching to methadone. Does not normally wear oxygen. Smokes about a pack a day. Denies fever, chest pain. does complain of headache and generalized bodyaches. Appears frustrated that she was given Narcan. You put me into withdrawal . Informed her it was given to save her life, that she was not breathing appropriately. Reports no bowel movement in 2 days. Hospital Course Hospital Course Hospital Course: 44-year-old female with opiate use disorder on maintenance therapy who presented with altered mental status and hypoxia. On presentation, found to be hypoxic necessitating supplemental oxygen. Responding to Narcan. Imaging showing pneumonia. Discussed case with ER physician, request admission for further management. I agreed to admit for IV antibiotics, weaning of oxygen, monitoring for improvement in respiratory status and clearance of intoxicants. Initiate methadone at lower dose for pain. Monitor for tolerance. Continue to wean oxygen. Continues to require inpatient management. Problems addressed as follows Toxic encephalopathy, resolved Opiate use disorder Aspiration pneumonia, resolved Acute hypoxic respiratory failure, resolved Polypharmacy ? Patient mentating well, alert and oriented. Conversational, responding to all questions appropriately. - In regard to toxic encephalopathy from opioid overdose, patient?s mentation improved holding all opioids and sedatives, then restarting her home methadone at a lower dose of 50mg. She will be able to follow-up with her methadone provider at [facility] tomorrow for further refills as deemed appropriate. -Discussed case with pulmonology, started Advair 250 mg inhaler twice daily. Completed 5-day course of Levaquin for aspiration pneumonia. White count has normalized. - Continue gabapentin at reduced dose of 400 mg 3 times a day? Headache: Fioricet ordered once daily as needed Transaminitis -Unclear etiology, bili 1, AST and ALT 295 and 284 respectively. Right upper quadrant ultrasound showed trace gallbladder sludge. Not endorsing abdominal pain, no jaundice, fevers. AST/ALT improved to 74/202. ? Ordered hepatitis panel, will follow-up if positive. Tobacco use disorder: Nicotine patch 21 mg daily Exam Data for Last 24 hours Vital signs and Labs for Last 24 Hours: Temp Pulse Resp BP Pulse Ox O2 Del Method O2 Flow Rate 97.6 F 80 18 120/73 96 Room Air 3 07/26/24 08:00 07/26/24 08:33 07/26/24 08:00 07/26/24 08:00 07/26/24 08:00 07/26/24 11:00 07/25/24 10:00 FiO2 100 07/23/24 08:40 Laboratory Results - last 24 hr 07/25/24 12:26: POC Glucose 141 H 07/25/24 15:37: Troponin I 0.02 07/25/24 17:14: POC Glucose 198 H 07/26/24 08:10: WBC 6.9, RBC 4.02 L, Hgb 12.1 L, Hct 39.3, MCV 97.8, MCH 30.1, MCHC 30.8 L, RDW 13.6, Plt Count 187, MPV 9.6, Neut % (Auto) 69.2, Lymph % (Auto) 23.8, [place] % (Auto) 6.3, Eos % (Auto) 0.5, Baso % (Auto) 0.3, Neut # (Auto) 4.7, Lymph # (Auto) 1.6, [place] # (Auto) 0.4, Eos # (Auto) 0.0, Baso # (Auto) 0.0, Sodium 139, Potassium 3.9, Chloride 94 L, Carbon Dioxide 40 H, Anion Gap 8.9, BUN 20 H, Creatinine 0.80, Estimated Creat Clear 77, Estimated GFR 78, Est GFR ( Amer) 94, Glucose 155 H, Calcium 9.6, Total Bilirubin 0.5, AST 74 H D, ALT 202 H, Alkaline Phosphatase 88, Total Protein 7.0, Albumin 3.8, Globulin 3.2, Albumin/Globulin Ratio 1.2 I & O for Last 24 hours: Intake & Output 07/23/24 07/24/24 07/25/24 07/26/24 23:59 23:59 23:59 23:59 Intake Total 1796 / 2196 1690 / 1690 840 / 1200 900 / 900 Output Total 2300 / 2300 1600 / 1600 200 / 200 0 / 0 Balance -504 / -104 90 / 90 640 / 1000 900 / 900 Weight 118.444 kg 117.617 kg 122.6 kg 127.686 kg Microbiology Reports for the Last 24 Hours: Microbiology 07/23/24 17:00 Sputum - Expectorated Sputum Gram Stain - Final 07/23/24 17:00 Sputum - Expectorated Sputum Sputum Culture - Preliminary Gram Negative Rods Gram Negative Rods#2 07/23/24 08:55 Blood Blood Culture - Preliminary NO GROWTH AFTER 48 HOURS 07/23/24 08:55 Blood Blood Culture - Preliminary NO GROWTH AFTER 48 HOURS Constitutional Constitutional: no acute distress and obese *Routine HEENT Exam Head: Present normocephalic Eye: Present EOMI and PERRL ENT: Present mucous membranes moist *Routine Neck Exam Neck: Present supple; Absent lymphadenopathy *Routine Respiratory Exam Respiratory: Present CTA bilaterally *Routine Cardiovascular Exam Cardiovascular: Present RRR *Routine Abdominal Exam Abdominal: Present soft and normoactive bowel sounds; Absent tenderness *Routine Extremities Exam Extremities: Absent cyanosis, clubbing or edema *Routine Skin Exam Skin: Present warm; Absent rash *Routine Neurological Exam Neurological: Present alert and oriented X3 Results Data Completed and Pending Labs on day of discharge: Labs from last 24 hours 07/26/24 07/25/24 07/25/24 08:10 17:14 15:37 WBC 6.9 RBC 4.02 L Hgb 12.1 L Hct 39.3 MCV 97.8 MCH 30.1 MCHC 30.8 L RDW 13.6 Plt Count 187 MPV 9.6 Neut % (Auto) 69.2 Lymph % (Auto) 23.8 [place] % (Auto) 6.3 Eos % (Auto) 0.5 Baso % (Auto) 0.3 Neut # (Auto) 4.7 Lymph # (Auto) 1.6 [place] # (Auto) 0.4 Eos # (Auto) 0.0 Baso # (Auto) 0.0 Sodium 139 Potassium 3.9 Chloride 94 L Carbon Dioxide 40 H Anion Gap 8.9 BUN 20 H Creatinine 0.80 Estimated Creat Clear 77 Estimated GFR 78 Est GFR ( Amer) 94 Glucose 155 H POC Glucose 198 H Calcium 9.6 Total Bilirubin 0.5 AST 74 H D ALT 202 H Alkaline Phosphatase 88 Troponin I 0.02 Total Protein 7.0 Albumin 3.8 Globulin 3.2 Albumin/Globulin Ratio 1.2 07/25/24 12:26 WBC RBC Hgb Hct MCV MCH MCHC RDW Plt Count MPV Neut % (Auto) Lymph % (Auto) [place] % (Auto) Eos % (Auto) Baso % (Auto) Neut # (Auto) Lymph # (Auto) [place] # (Auto) Eos # (Auto) Baso # (Auto) Sodium Potassium Chloride Carbon Dioxide Anion Gap BUN Creatinine Estimated Creat Clear Estimated GFR Est GFR ( Amer) Glucose POC Glucose 141 H Calcium Total Bilirubin AST ALT Alkaline Phosphatase Troponin I Total Protein Albumin Globulin Albumin/Globulin Ratio Preliminary micro results at discharge 07/23/24 17:00 Sputum Culture - Preliminary Sputum - Expectorated Sputum Gram Negative Rods Gram Negative Rods#2 07/23/24 08:55 Blood Culture - Preliminary Blood NO GROWTH AFTER 48 HOURS 07/23/24 08:55 Blood Culture - Preliminary Blood NO GROWTH AFTER 48 HOURS DS: Diagnosis Discharge Diagnosis (1) Acute hypoxic respiratory failure: Status: Resolved Code(s): J96.01 - Acute respiratory failure with hypoxia (2) Pneumonia: Status: Acute Code(s): J18.9 - Pneumonia, unspecified organism Meds Home Medications and Allergies Home Medications ?Medication ?Instructions ?Recorded ?Confirmed ?Type fluticasone 250 mcg-salmeterol 50 1 inh inhalation BIDRT #60 ea 07/26/24 Rx mcg/dose blistr powdr for inhalation (Advair Diskus) methadone 10 mg/mL oral concentrate 50 mg (5 mL) PO DAILY 1 day #0 mL 07/26/24 08/03/24 Rx albuterol sulfate 90 mcg/actuation 2 puff inhalation Q6H PRN 08/03/24 08/03/24 Rx aerosol inhaler shortness of breath or wheezing #8.5 grams lisinopril 20 mg tablet 20 mg PO DAILY #30 tabs 08/03/24 08/03/24 Rx New Prescriptions to Start Prescriptions: fluticasone propion-salmeterol [Advair Diskus] Joel Chavez Allergies Allergy/AdvReac Type Severity Reaction Status Date / Time ibuprofen Allergy Verified 08/03/24 10:35 prednisone Allergy Verified 08/03/24 10:35 Discharge Plan Disposition Patient Disposition: Home, Self-Care Condition: Fair Discharge Order Discharge Orders: Discharge Order (Routine); Ordered 07/26/24 Ordered By: Joel Chavez Follow up Plan Follow up with: Tito Toth MD [Staff Physician] - 08/03/24 10:30 am Alex Moya MD [Physician] - 08/09/24 11:20 am Prescriptions/Medication Reconciliation: New fluticasone propion-salmeterol [Advair Diskus] 250-50 mcg/dose Blister With Device 1 inh inhalation BIDRT Qty: 60 0RF Changed methadone 10 mg/mL Concentrate 50 mg PO DAILY 1 Days Qty: 0 0RF No Action lisinopril 20 mg tablet 20 mg PO DAILY Qty: 30 2RF albuterol sulfate 90 mcg/actuation HFA aerosol inhaler 2 puff inhalation Q6H PRN (Reason: shortness of breath or wheezing) Qty: 8.5 2RF Problem Reconciliation Problems Reviewed?: Yes Patient Discharge Instructions ACTIVITY: Continue current activity DIET: continue same diet Stand Alone Forms: [facility] Work Release Patient Instructions: DI for Pneumonia -- Adult, DI for Drug Overdose in Adults Print Language: [place]ian Providers Primary Care Provider: Provider,Referral Admit Provider: Rustam Ceron Attending Provider: Rustam Ceron
[2024-07-26] MEDS: METHADONE 10MG TABLET 50 MG PO (14:28)
--- NOTE | 2024-07-27 14:44 | CARE MANAGER ---
Patient returned phone call and states she is not feeling well. We got disconnected and I attempted to call her back twice. No answer.
[2024-07-29 19:08] LABS: HBsAg Screen Negative (Negative); HCV Ab Reactive (Non Reactive); Hep A Ab, IGM Negative (Negative); Hep B Core Ab, IgM Negative (Negative)
--- NOTE | 2024-08-01 12:54 | CARE MANAGER ---
Patient's new medication Amitiza was denied by insurance. Dr. Ceron states patient can follow up with PCP regarding this and take mag citrate as needed until then. FELIPE Braga
== END 2024-07-26 14:30 | disposition home or self-care (01) | DRG 91 ==
LOC: ER 10:37 → 2ND 11:06
PROVIDERS: Student in an Organized Health Care Education/Training Program; Admitting Provider Internal Medicine Adolescent Medicine; Emergency Provider Student in an Organized Health Care Education/Training Program; Visit Provider Internal Medicine Adolescent Medicine
DX: G92.8 Other toxic encephalopathy (principal); J69.0 Pneumonitis due to inhalation of food and vomit; J96.01 Acute respiratory failure with hypoxia; Z68.42 Body mass index [BMI] 45.0-49.9, adult; T40.495A Adverse effect of other synthetic narcotics, initial encounter; J44.9 Chronic obstructive pulmonary disease, unspecified; I10 Essential (primary) hypertension; F17.210 Nicotine dependence, cigarettes, uncomplicated; E66.01 Morbid (severe) obesity due to excess calories; Z79.891 Long term (current) use of opiate analgesic
CPT/HCPCS: 36415; 70450; 70496; 70498; 71045; 71275; 74177; 76705; 80050; 80053; 80061; 80074; 80307; 80320; 80329; 82550; 82803; 82962; 83605; 83735; 83880; 84145; 84436; 84443; 84484; 84702; 85007; 85025; 85610; 85730; 87040; 87070; 87077; 87186; 87205; 87389; 87636; 93005; 93306; 94640; 94761; 99291; G0480; J1650; J1885; J1939; J1940; J1956; J2250; J2405; J2543; J2919; J3370; J7120; J7620; Q9967

== ENCOUNTER 2024-09-01 14:52 | Emergency (ER) | payer MEDICAID, SELFPAY ==
[2024-09-01 14:54] VITALS: BP 162/87; PULSE 96; RESP 18; TEMP 37; O2SAT 97; BMI 38.4
[2024-09-01 15:02] VITALS: BP 162/87; PULSE 90; RESP 18; O2SAT 95
--- NOTE | 2024-09-01 15:24 | ECG_ITS ---
APPROVED REPORT Exam: Resting ECG HR:83 bpm ECG Measurements Heart Rate 83 AXES MD 159 P 58 QRSd 117 QRS -43 QT 389 T 61 QTc 428 Conclusion SINUS RHYTHM LEFT AXIS DEVIATION [QRS AXIS < -30] S1-S2-S3 PATTERN, CONSISTENT WITH PULMONARY DISEASE, RVH, OR NORMAL VARIANT PATTERN CONSISTENT WITH PULMONARY DISEASE MODERATE INTRAVENTRICULAR CONDUCTION DELAY [110+ ms QRS DURATION] No STEMI Electronically signed by : AURORA MALDONADO, 09/02/2024 03:43:10
--- NOTE | 2024-09-01 15:34 | CT_ITS ---
FINAL REPORT CLINICAL HISTORY: recent overdose, eval temporal lobes/cerebellum COMPARISON: 07/23/2024 FINDINGS: Axial images of the head were obtained without contrast. Coronal reformatted images were also obtained.This study was performed with techniques to keep radiation doses as low as reasonably achievable (ALARA). Individualized dose reduction techniques using automated exposure control or adjustment of mA and/or kV according to the patient's size were employed. There is no evidence of intracranial hemorrhage or mass. The ventricular size is within normal limits. There is no evidence of shift of the midline structures. No abnormal extra axial fluid collection is identified. No skull abnormality is seen on the bone window images. IMPRESSION: No acute intracranial abnormality. Reviewed, Interpreted and Dictated by Elijah Martinez III, MD Transcribed by Miranda Childs Authenticated and . [facility]
[2024-09-01] MEDS: FOLIC ACID 1MG TABLET 1 MG PO (15:46)
[2024-09-01] MEDS: THIAMINE 100MG TABLET 100 MG PO (15:46)
--- NOTE | 2024-09-01 15:59 | ED_ITS ---
Discharge Plan Disposition Patient Disposition: Home, Self-Care Chief Complaint: Dizziness Prescriptions Prescriptions: No Action lisinopril 20 mg tablet 20 mg PO DAILY Qty: 30 2RF albuterol sulfate 90 mcg/actuation HFA aerosol inhaler 2 puff inhalation Q6H PRN (Reason: shortness of breath or wheezing) Qty: 8.5 2RF fluticasone propion-salmeterol [Advair Diskus] 250-50 mcg/dose Blister With Device 1 inh inhalation BIDRT Qty: 60 0RF methadone 10 mg/mL Concentrate 50 mg PO DAILY 1 Days Qty: 0 0RF gabapentin 800 mg tablet 800 mg PO TID Patient Comments: Take 1 tablet by mouth three times a day Referrals Follow up/Referrals: Tito Toth MD [Primary Care Provider] - See instructions Activity Restrictions/Add. Instructions Additional Instructions/Restrictions: Call your family doctor to establish care for this visit to the emergency department and schedule follow-up within 48 hours to ensure improvement. If you have any worsening of your condition or any other concerning signs or symptoms, return to the emergency department or your primary care doctor for further evaluation. Clinical Impressions Clinical Impression: Generalized weakness, Intermittent lightheadedness Print Language Print Language: Hungarian Discharge ED Provider: Brain Pulliam General Adult HPI General Chief complaint: Dizziness Stated complaint: off balance, confusion, memory loss Time Seen by Provider: 09/01/24 15:02 Mode of Arrival: Wheelchair Source of Information: Patient Limitations: No Limitations Description of Symptoms (Recalled from ER Triage Doc. by RN): PT PRESENTS TO THE ER FOR DIZZINESS, STATES IT STARTED THIS MORNING AND SHE HAS BEEN STUMBLING AROUND, ALSO REPORTS FEVER, CHILLS, AND HEADACHE, STATES SHE HAS HAD INCREASED CONFUSION FOR ABOUT A WEEK, OVERDOSED ON METHADONE 2 WEEKS AGO AND WONDERS IF IT COULD POSSIBLY BE RELATED, REPORTS NOT USING SINCE OD, SIGNIFICANT OTHER STATES SHE WAS UNRESPONSIVE FOR 24 HOURS AND WAS ADMITTED HERE History of Present Illness HPI narrative: Please note that above description of symptoms, in this electronic medical record under categorization of recalled from ER triage doctor by RN are reflective of an initial nursing assessment, however, is not reflective of my full history and physical exam that was personally taken and clarified. Consequentially, this preceding description of symptoms, which may include the patient's categorized chief complaint in the EMR, do not reflect my personal clinical impression, and the ultimate description of history of present illness and patient stated complaints should be deferred to this section of the note. Unless stated otherwise or congruent with this section of the note, additional signs, symptoms, or incongruence should be interpreted as inaccurate with my clinical impression. Related Data Home Medications ?Medication ?Instructions ?Recorded ?Confirmed gabapentin 800 mg tablet 800 mg PO TID 09/01/24 09/01/24 Previous Rx's ?Medication ?Instructions ?Recorded fluticasone 250 mcg-salmeterol 50 1 inh inhalation BIDRT #60 ea 07/26/24 mcg/dose blistr powdr for inhalation (Advair Diskus) methadone 10 mg/mL oral concentrate 50 mg (5 mL) PO DAILY 1 day #0 mL 07/26/24 albuterol sulfate 90 mcg/actuation 2 puff inhalation Q6H PRN 08/03/24 aerosol inhaler shortness of breath or wheezing #8.5 grams lisinopril 20 mg tablet 20 mg PO DAILY #30 tabs 08/03/24 Allergies Allergy/AdvReac Type Severity Reaction Status Date / Time ibuprofen Allergy UNKNOWN Verified 09/01/24 15:10 prednisone Allergy UNKNOWN Verified 09/01/24 15:10 [facility] Disclaimer: The information contained in this section may have been updated after the patient was seen, as this information can be updated by other users. Medical History History of snoring Right otitis media Non compliance with medical treatment Smoking greater than 30 pack years Allergic rhinitis Asthma Dyspnea on exertion Hyperlipidemia Sinusitis Otitis externa Bronchitis Upper respiratory infection, viral Muscle spasm Vaginal yeast infection Sinusitis Surgical History History of eye surgery History of hysterectomy History of tubal ligation History of section Family History Other COPD (chronic obstructive pulmonary disease) Diabetes Hypertension Social History Smoking Status: Current every day smoker tobacco type: cigarettes packs per day: 1 second hand exposure: No alcohol intake: never substance use type: former substance user current occupational status: other Travel in the last 8 weeks: None housing: house current occupational exposures/hazards: No Other Medical History Have you received the Flu Vaccine for this season: No Have you received the Pneumonia Vaccine: No ROS Obtained: Yes All systems reviewed & no additional complaints except as documented Physical Exam General General appearance: alert and obese Head Head exam: atraumatic and normocephalic Eye Eye exam: Present normal appearance, PERRL and EOMI Neck Neck exam: Present normal inspection, full ROM and trachea midline Respiratory Respiratory exam: Present normal lung sounds bilaterally; Absent respiratory distress, wheezes, stridor, accessory muscle use or prolonged expiratory phase Cardiovascular Cardiovascular exam: Present regular rate, normal rhythm and other (Pulses equal symmetric in upper and lower extremities) Abdominal Exam Abdominal exam: Present soft; Absent distention, tenderness or pulsatile mass Extremities Exam Extremities exam: Absent edema Neurological Exam Neurological exam: Present alert, oriented X3, CN II-XII intact, normal gait and other (Mild dysmetria all 4 extremities); Absent motor sensory deficit Skin Skin exam: Present warm and dry; Absent diaphoresis or erythema Medical Decision Making Medical Records Medical records reviewed: Yes I reviewed the patient's medical records. Screening: Per USPSTF and CDC recommendations, given the prevalence of disease in our region, it is our hospital?s policy to screen for HIV and viral Hepatitis for all patients aged 18 and over and those with ongoing risk factors. [place] Inquiry Pt receiving controlled substance: No [place] was queried for this patient: No Vital Signs: 09/01/24 14:54 09/01/24 15:02 09/01/24 16:31 Temperature 98.6 F Temperature Source Oral Pulse Rate 90 73 Pulse Rate [Left Radial] 96 H Respiratory Rate 18 18 18 Blood Pressure 162/87 H 140/114 H Blood Pressure [Right Arm] 162/87 H Blood Pressure Mean 112 119 Blood Pressure Mean [Right Arm] 112 Blood Pressure Source [Right Arm] Automatic Cuff Blood Pressure Position [Right Arm] Sitting 02 Sat by Pulse Oximetry 97 95 95 Oxygen Delivery Method Room Air Lab Data Lab Results 09/01/24 15:50: WBC 6.1, RBC 5.01, Hgb 15.4, Hct 45.3, MCV 90.4, MCH 30.6, MCHC 33.9, RDW 14.1, Plt Count 249, MPV 8.8, Neut % (Auto) 54.1, Lymph % (Auto) 35.1, [place] % (Auto) 6.1, Eos % (Auto) 3.4, Baso % (Auto) 1.3, Neut # (Auto) 3.3, Lymph # (Auto) 2.2, [place] # (Auto) 0.4, Eos # (Auto) 0.2, Baso # (Auto) 0.1, Sodium 139, Potassium 3.5, Chloride 109 H, Carbon Dioxide 23, Anion Gap 10.5, BUN 13, Creatinine 0.60, Estimated Creat Clear 178, Estimated GFR 108, Est GFR ( Amer) 131, Glucose 136 H, Calcium 9.5, Magnesium 1.9, Total Bilirubin 0.7, AST 36, ALT 33, Alkaline Phosphatase 60, Total Protein 7.2, Albumin 4.0, Globulin 3.2, Albumin/Globulin Ratio 1.3, HIV 1&2 Antibody Rapid Nonreactive 09/01/24 15:50 09/01/24 15:50 Orders (Tests/Meds): ED MEDICATIONS Discontinued Medications Generic Name Dose Route Start Last Admin Trade Name Freq PRN Reason Stop Dose Admin Folic Acid 1 mg 09/01/24 15:36 09/01/24 15:46 Folic Acid 1mg Tablet PO 09/01/24 15:37 1 mg ONCE ONE Administration Thiamine HCl 100 mg 09/01/24 15:34 09/01/24 15:46 Thiamine 100mg Tablet PO 09/01/24 15:35 100 mg ONCE ONE Administration ORDERS Category Date Time Status CT head/brain wo con Stat Cat Scan 09/01/24 15:34 Completed CBC w/Auto Diff [Complete Blood Count Auto Diff] Stat Lab 09/01/24 15:50 Completed CMP [Comprehensive Metabolic Panel] Stat Lab 09/01/24 15:50 Completed HIV (1&2) Antibody Rapid Stat Lab 09/01/24 15:50 Completed Hep C Ab with Reflex to RNA Stat Lab 09/01/24 15:50 Received Magnesium Stat Lab 09/01/24 15:50 Completed Medical Decision Narrative: 44-year-old female history of hypertension hyperlipidemia, not on home drink polysubstance abuse with previous HCV (treated), current opiate use nonenjection as well as methadone therapy presenting with multiple complaints. Patient states that she had an overdose a couple of weekprior to this. She states that she overdosed on methadone, took 6 doses of Narcan in order to wake her up. Unknown downtime. Patient states that since that time, she has been weak, having memory difficulties, generally lightheaded and does not feel the same. Denies any unilateral deficits, new vision changes, hearing deficits, chest pain, shortness of breath, nausea, vomiting, fevers, chills, or any other concerns. She had a hospital stay at that time and was discharged home. States that since that time, she has not felt right. No acute or focal complaints. Has not seen her family doctor or neurologist for any of these complaints. History was obtained via conversation with patient and significant other. On arrival, patient hemodynamically stable, alert, oriented x4, appropriate, GCS 15, moving all extremities spontaneously, pupils equal and reactive to light. Full physical exam performed and significant for chronically appearing female no acute distress. Speaking in full sentences, neurologically intact including cranial nerve, motor and sensory exams. Patient does have mild dysmetria all 4 extremities on finger-nose as well as [id number]. Differential includes hypoxic/ischemic injury, intoxication, withdrawal, metabolic abnormality, vitamin or mineral deficiency arrhythmia, dehydration, vasovagal versus orthostatic presyncope, among others. oriented x4, appropriate, rdi 15nitoring and continuous pulse ox with initial blood pressure 162/87, heart rate 96, oxygen saturation 97% on room air. Independent interpretation of EKG shows sinus rhythm with left axis deviation. NE 159, QRS 117, QTc 428. Workup independently interpreted and significant for nonactionable CBC or chemistry or magnesium. On independent interpretation of imaging, no acute intracranial abnormality. See radiology read for full review of final results. On reevaluation, patient still resting at baseline. Given patient presentation, workup, history, this most likely represents mild cerebral ischemic hypoxemic event In the setting of prolonged overdose. I feel this is most likely given oxygen sensitivity of hippocampus an Independent interpretation of EKG shows ms starting with prolonged overdose and persisting since. Recommended she follow- up with her family doctor and neurologist. Because patient at baseline without signs or symptoms of clinical decompensation, deemed appropriate for discharge. Results were relayed to patient who voiced understanding and were agreeable to outpatient management and follow up. I discussed my clinical impression with patient and answered all questions. At this time, the evidence for any other entities in the differential is insufficient to warrant any further testing or ED observation. This was explained as well. Advisory was given that persistent or worsening symptoms require further evaluation. I confirmed the understanding of this discussion. [employer] Manager disclaimer Much of this encounter note is an electronic natural science manager spoken language to printed text. Electronic natural science manager of t spoken language may permit errors. Although I have reviewed the note, some errors may still exist. Critical Care Critical Care Time Critical Care Time: No
[2024-09-01 16:07] LABS: Basophils # 0.1 K/mm3 (0-0.2); Basophils % 1.3 % (0.1-2.0); Eosinophils # 0.2 K/mm3 (0.0-0.4); Eosinophils % 3.4 % (0.1-12.0); Hematocrit 45.3 % (37.0-47.0); Hemoglobin 15.4 g/dL (12.2-16.2); Lymphocytes # 2.2 K/mm3 (0.7-4.5); Lymphocytes % 35.1 % (10-50); Mean Corpuscular HGB Conc 33.9 g/dL (31.8-35.4); Mean Corpuscular Hemoglobin 30.6 pg (27.0-31.2); Mean Corpuscular Volume 90.4 fl (81-99); Mean Platelet Volume 8.8 fl (7.4-10.4); Monocytes # 0.4 K/mm3 (0.1-1.0); Monocytes % 6.1 % (1.7-9.3); Neutrophils # 3.3 K/mm3 (1.8-7.8); Neutrophils % 54.1 % (37.0-80.0); Platelet Count 249 K/mm3 (142-424); Red Blood Count 5.01 M/mm3 (4.20-5.40); Red Cell Distribution Width 14.1 % (11.5-17.5); White Blood Count 6.1 K/mm3 (4.8-10.8)
[2024-09-01 16:20] LABS: Chloride 109 mmol/L (98-107)
[2024-09-01 16:21] LABS: Potassium 3.5 mmoL/L (3.5-5.1); Sodium 139 mmol/L (136-145)
[2024-09-01 16:23] LABS: Alanine Aminotransferase 33 U/L (12-78); Albumin/Globulin Ratio 1.3 (1.1-1.8); Alkaline Phosphatase 60 U/L (38-126); Anion Gap 10.5 mEq/L (5-15); Aspartate Amino Transferase 36 U/L (14-36); Bilirubin,Total 0.7 mg/dl (0.2-1.3); Blood Urea Nitrogen 13 mg/dl (7-17); Carbon Dioxide 23 mmol/L (22.0-30.0); Creatinine Clearance Estimated 178 mL/min (50-200); Estimated Glomerular Filt Rate 108 ml/min (>60); GFR (African American) 131 ML/MIN (>60); Globulin 3.2 g/dL (1.3-3.2); Total Protein,Serum 7.2 g/dl (6.3-8.2)
[2024-09-01 16:24] LABS: Calcium 9.5 mg/dl (8.4-10.2); Glucose 136 mg/dl (74-100); Magnesium 1.9 mg/dl (1.6-2.3)
[2024-09-01 16:31] VITALS: BP 140/114; PULSE 73; RESP 18; O2SAT 95
[2024-09-01 17:12] LABS: HIV (1&2) Antibody Rapid NONREACTIVE (NONREACTIVE)
[2024-09-01 17:15] VITALS: BP 119/75; PULSE 79; RESP 20; TEMP 36.6
[2024-09-04 15:40] LABS: HCV Ab Reactive (Non Reactive)
== END 2024-09-01 17:25 | disposition home or self-care (01) ==
PROVIDERS: Emergency Provider Emergency Medicine; PCP Family Medicine
DX: R53.1 Weakness (principal); R41.82 Altered mental status, unspecified; R42 Dizziness and giddiness; R50.9 Fever, unspecified; R51.9 Headache, unspecified
CPT/HCPCS: 70450; 80053; 83735; 85025; 86803; 87389; 93005; 99284

== ENCOUNTER 2024-12-13 11:30 | Outpatient (CLI) | payer MEDICAID, SELFPAY ==
[2024-12-13 11:47] LABS: Basophils % 0.7 % (0.1-2.0); Eosinophils # 0.3 K/mm3 (0.0-0.4); Eosinophils % 5.4 % (0.1-12.0); Hematocrit 41.2 % (37.0-47.0); Hemoglobin 13.3 g/dL (12.2-16.2); Lymphocytes % 34.3 % (10-50); Mean Corpuscular HGB Conc 32.3 g/dL (31.8-35.4); Mean Corpuscular Hemoglobin 28.9 pg (27.0-31.2); Mean Corpuscular Volume 89.6 fl (81-99); Mean Platelet Volume 9.9 fl (7.4-10.4); Monocytes # 0.3 K/mm3 (0.1-1.0); Monocytes % 5.7 % (1.7-9.3); Neutrophils # 3.2 K/mm3 (1.8-7.8); Neutrophils % 53.7 % (37.0-80.0); Platelet Count 260 K/mm3 (142-424); Red Cell Distribution Width 12.6 % (11.5-17.5); White Blood Count 5.9 K/mm3 (4.8-10.8)
[2024-12-13 12:14] LABS: Hemoglobin A1C 5.5 % (4.0-6.0)
[2024-12-13 13:11] LABS: Alanine Aminotransferase 27 U/L (12-78); Albumin Level 4.3 g/dl (3.5-5.0); Albumin/Globulin Ratio 1.7 (1.1-1.8); Alkaline Phosphatase 71 U/L (38-126); Anion Gap 9.3 mEq/L (5-15); Aspartate Amino Transferase 28 U/L (14-36); Bilirubin,Total 0.8 mg/dl (0.2-1.3); Blood Urea Nitrogen 14 mg/dl (7-17); Calcium 9.6 mg/dl (8.4-10.2); Carbon Dioxide 26 mmol/L (22.0-30.0); Chloride 104 mmol/L (98-107); Chol/HDL Ratio 2.8 (1-3.5); Cholesterol 134 mg/dl (140-200); Estimated Glomerular Filt Rate 108 ml/min (>60); GFR (African American) 131 ML/MIN (>60); Globulin 2.5 g/dL (1.3-3.2); Glucose 128 mg/dl (74-100); HDL Cholesterol 48 mg/dl (40-60); Potassium 4.3 mmoL/L (3.5-5.1); Sodium 135 mmol/L (136-145); Total Protein,Serum 6.8 g/dl (6.3-8.2); Triglycerides 73 mg/dl (30-150); VLDL Cholesterol 15 mg/dL (0-40)
[2024-12-13 13:22] LABS: Direct LDL Cholesterol 69.19 mg/dL (100-129)
[2024-12-13 18:57] LABS: Thyroid Stimulating Hormone 0.44 uIU/mL (0.465-4.68)
== END 2024-12-13 23:59 | disposition home or self-care (01) ==
LOC: LAB 11:31
PROVIDERS: PCP Family Medicine; Visit Provider Family Medicine
DX: R73.09 Other abnormal glucose (principal); R60.9 Edema, unspecified; R63.5 Abnormal weight gain; Z68.41 Body mass index [BMI] 40.0-44.9, adult
CPT/HCPCS: 36415; 80053; 80061; 83036; 84443; 85025

== ENCOUNTER 2025-01-03 10:54 | Outpatient (CLI) | payer MEDICAID, SELFPAY ==
[2025-01-03 12:28] LABS: Thyroid Stimulating Hormone 0.92 uIU/mL (0.465-4.68)
[2025-01-03 12:43] LABS: Coronavirus 19, PCR Not Detected (NotDetected); Influenza A, PCR Not Detected (NotDetected); Influenza B, PCR Not Detected (NotDetected); Respiratory Syncytial Virus Not Detected (NotDetected)
[2025-01-03 15:50] LABS: Human Rhinovirus Detected (NotDetected)
== END 2025-01-03 23:59 | disposition home or self-care (01) ==
LOC: LAB 10:54
PROVIDERS: Nurse Practitioner; PCP Family Medicine; Visit Provider Family Medicine
DX: E03.9 Hypothyroidism, unspecified (principal); R42 Dizziness and giddiness; R53.1 Weakness; R50.9 Fever, unspecified
CPT/HCPCS: 36415; 84439; 84443; 87631